=== PATIENT | female | born 1955 | race Caucasian/White ===

== ENCOUNTER 2021-07-07 09:36 | Outpatient (REF) | payer MEDICARE, SELFPAY ==
[2021-07-07 11:00] LABS: C Reactive Protein 0.11 mg/dL (< or = 0.50)
[2021-07-08 13:12] LABS: Lyme Abs Screen <0.90 index
== END 2021-07-07 09:37 | disposition home or self-care (01) ==
LOC: HO.10HDL 09:36
PROVIDERS: Visit Provider Internal Medicine
DX: T14.8XXA Other injury of unspecified body region, initial encounter (principal); W57.XXXA Bitten or stung by nonvenomous insect and other nonvenomous arthropods, initial encounter
CPT/HCPCS: 36415; 86140; 86617; 86618

== ENCOUNTER 2021-10-11 07:00 | Day surgery (SDC) | payer MEDICARE, SELFPAY ==
[2021-10-05 14:43] VITALS: BMI 33.4
[2021-10-06 11:05] VITALS: BMI 32.6
--- NOTE | 2021-10-10 08:28 | HO.ANESPROP2 ---
Documented by User: Ute Almeida NP 10/10/21 08:30 HPI - Anesthesia Eval Consult details Narrative: 66yo F for Colonoscopy Preop abx per GI d/t h/o total joint [facility] Past Medical History Medical History Environmental allergies HTN (hypertension) Motion sickness Surgical History Surgical History History of total knee arthroplasty Hx of arthroscopy of left knee Hx of colonoscopy Social History Social History Patient Tobacco Use Status: Never used Tobacco Use of substances other than those prescribed or required for medical reasons: No Are you DNR?: No Advance Directives: No Advance Directives Information Provided: Yes Advance Directives on File: No Meds Allergies Allergy/AdvReac Type Severity Reaction Status Date / Time No Known Allergies Allergy Verified 10/11/21 07:11 Home Medications Medication Instructions Recorded Confirmed Last Taken Type Fish Oil 10/05/21 Unknown History Vitamin C 10/05/21 Unknown History lisinopril 2.5 mg tablet 2.5 mg PO DAILY 10/05/21 10/05/21 Unknown History turmeric 10/05/21 Unknown History Exam Exam Date and Time: October 10, 2021 0828 Height,Weight and Vital Signs: Height 5 ft 8 in Weight 97.522 kg Assessment and Plan Assessment Anesthesia Assessment: Chart Reviewed Documented by User: Kourtney Askew MD 10/11/21 07:35 [facility] Past Medical History Medical History Environmental allergies HTN (hypertension) Motion sickness Family History Family history of problems with anesthesia: No Surgical History Surgical History History of total knee arthroplasty Hx of arthroscopy of left knee Hx of colonoscopy History of Problems with Anesthesia: No Social History Social History Patient Tobacco Use Status: Never used Tobacco Use of substances other than those prescribed or required for medical reasons: No Are you DNR?: No Advance Directives: No Advance Directives Information Provided: Yes Advance Directives on File: No Meds Allergies Allergy/AdvReac Type Severity Reaction Status Date / Time No Known Allergies Allergy Verified 10/11/21 07:11 Home Medications Medication Instructions Recorded Confirmed Last Taken Type Fish Oil 10/05/21 Unknown History Vitamin C 10/05/21 Unknown History lisinopril 2.5 mg tablet 2.5 mg PO DAILY 10/05/21 10/05/21 Unknown History turmeric 10/05/21 Unknown History Exam Height,Weight and Vital Signs: Height 5 ft 8 in Weight 97.522 kg Vital Signs Temp Pulse Resp BP Pulse Ox 10/11/21 07:15 98.0 F 86 18 157/75 H 97 Airway Mallampati Class: III TM Dist: >3cm Neck ROM: Full Loose/Missing/Broken Teeth: No Heart: RRR Lungs: CTAB Assessment and Plan Assessment Anesthesia Assessment: Anesthesia Plan Discussed Final Anesthetic Review Family History of Problems with Anesthesia: No History of Problems with Anesthesia: No NPO: Yes ASA Class: II Final Preanesthetic Review: No Changes in Pt Med Stat, Meds/Allgs Chart Reviewed, Consent Obtained/Reviewed and Anes Risks/Benef Reviewed Patient Risk: Low Procedure Risk: Low Anesthetic Plan Anesthetic Plan: MAC: Disposition: Standard PACU
[2021-10-11 07:15] VITALS: BP 157/75; PULSE 86; RESP 18; TEMP 36.7; O2SAT 97
[2021-10-11] MEDS: Ampicillin Sodium 2 GM in 0.9 % Sodium Chloride 100 ML IV (07:20)
[2021-10-11] MEDS: Lactated Ringers 1,000 ML 100 ML IVCONT (07:42)
[2021-10-11] MEDS: Gentamicin Sulfate/NaCl 80 MG/100 ML PIGGYBACK 100 MG IV (07:44)
[2021-10-11 09:01] VITALS: BP 103/66; PULSE 60; RESP 20; TEMP 36.9; O2SAT 98
--- NOTE | 2021-10-11 09:06 | PM.OP ---
Brief Operative Note Date of Service: 10/11/21 Pre-op diagnosis: Screening Post-op diagnosis: other (Colon polyps, Lipoma) Procedure: Colonoscopy to the cecum and TI with cold snare polypectomy x 2, and biopsies Surgeon: Jamie Jarvis Anesthesia: MAC Was an Job Setter Honing used for this Procedure?: No Estimated blood loss (mL): 2.0 Pathology: other (A. Ascending colon polyp B. Lipoma at Hepatic Flexure C. Rectal polyp) Condition: stable Disposition: PACU
[2021-10-11 09:16] VITALS: BP 117/68; PULSE 52; RESP 20; O2SAT 96
[2021-10-11 09:31] VITALS: BP 136/73; PULSE 52; RESP 20; O2SAT 98
--- NOTE | 2021-10-11 11:00 | OP_ITS ---
SURGEON: Jamie Jarvis MD INDICATIONS: The patient presents for evaluation of colorectal cancer screening. Full consent obtained from her for this, including risks of bleeding and perforation. PREOPERATIVE DIAGNOSIS: Colorectal cancer screening. POSTOPERATIVE DIAGNOSIS: Colorectal cancer screening, small colon polyps, lipoma, diverticulosis, internal hemorrhoids. PROCEDURE PERFORMED: Colonoscopy to the cecum and terminal ileum with cold snare polypectomy x2 and biopsies. ESTIMATED BLOOD LOSS: COMPLICATIONS: ANESTHESIA: Monitored anesthesia care. ASSISTANTS: SPECIMENS: DESCRIPTION OF PROCEDURE: The patient was placed in the left lateral decubitus position. The digital rectal exam revealed no abnormalities. The Olympus video pediatric colonoscope was entered into the rectum and advanced to the cecum with the assistance of abdominal wall pressure. Once in the cecum, I did identify normal-appearing cecal pouch with appendiceal orifice and a normal-appearing ileocecal valve. The terminal ileum was cannulated and appeared normal. The scope was withdrawn back in the colon. The entire cecum and ileocecal valve appeared normal. The scope was slowly withdrawn assessing all mucosal surfaces carefully. Preparation was excellent. In the ascending colon there was an approximately 5 or 6 mm polyp, which was removed with a cold snare polypectomy and recovered by suction. The polypectomy site appeared clean, without any signs of residual polyp nor any significant bleeding. In the region of the hepatic flexure, there was a large lipoma on broad stalk which I had been seen on her previous exam in 2009. It was quite soft and the overlying mucosa appeared to be grossly normal. Multiple biopsies were obtained from it. It was quite soft when probed with a biopsy forceps. In the rectum there was an approximately 5 or 6 mm polyp, which was removed by cold snare polypectomy and recovered by suction. The polypectomy site appeared clean, without any signs of residual polyp nor any significant bleeding. I did not visualize any other polyps, colitis, nor angiodysplasia. There was a mild amount of sigmoid diverticulosis. In the rectum, scope was retroflexed visualizing internal hemorrhoids, but no other pathology. The rectal mucosa appeared normal otherwise. The scope was withdrawn from the patient. She tolerated the procedure well and was returned to the recovery area in stable condition. IMPRESSION: 1. Colon polyps, status post cold snare polypectomy. 2. Lipoma. 3. Diverticulosis. 4. Internal hemorrhoids. PLAN: The results of the biopsies will be checked. If the polyps are tubular adenomas or serrated polyps, I would recommend a repeat colonoscopy within 5 years. If they are all just hyperplastic, I would recommend a followup colonoscopy in 10 years. She was advised not to use any aspirin and NSAIDs for 1 week. She did receive preprocedure antibiotics in regard to the relatively recent knee replacement and was given a prescription to use amoxicillin later today. MD CAROLINE Garcia/SEBAS / [id number]
== END 2021-10-11 10:30 | disposition home or self-care (01) ==
PROVIDERS: PCP Internal Medicine; Visit Provider Internal Medicine
PROC: 0DJD8ZZ Inspection of Lower Intestinal Tract, Via Natural or Artificial Opening Endoscopic (ICD-10-PCS; CPT 45378; principal; 2021-10-11 08:30)
DX: Z12.11 Encounter for screening for malignant neoplasm of colon (principal); D12.2 Benign neoplasm of ascending colon; K62.1 Rectal polyp; D17.5 Benign lipomatous neoplasm of intra-abdominal organs; K57.30 Diverticulosis of large intestine without perforation or abscess without bleeding; K64.8 Other hemorrhoids; I10 Essential (primary) hypertension; Z79.899 Other long term (current) drug therapy; Z96.652 Presence of left artificial knee joint
CPT/HCPCS: 45385; 45380; 88305; J0290; J1580; J2405

== ENCOUNTER 2023-02-14 10:15 | Outpatient (REF) | payer MEDICARE, SELFPAY ==
[2023-02-14 10:54] LABS: MANUAL DIFF FLAG NO
[2023-02-14 11:07] LABS: Basophils Percent Auto 0.6 % (0-2); Eosinophils Absolute Auto 0.2 X10*3/uL (0.0-0.4); Eosinophils Percent Auto 4.3 % (0-4); Hematocrit 40.4 % (37.0-47.0); Hemoglobin 13.1 g/dl (12.0-16.0); Imm Gran Abs Auto 0.01 X10*3/uL (0.00-0.03); Imm Gran Pct Auto 0.2 % (0.0-0.4); Lymphocytes Absolute Auto 1.9 X10*3/uL (1.2-4.9); Lymphocytes Percent Auto 34.9 % (20-40); Mean Corpuscular HGB Conc 32.4 g/dl (31.0-35.0); Mean Corpuscular Hemoglobin 29.9 pg (27.0-33.0); Mean Corpuscular Volume 92.2 fL (80.0-98.0); Mean Platelet Volume 11.4 fL (9.4-12.3); Monocytes Absolute Auto 0.4 X10*3/uL (0.1-1.2); Monocytes Percent Auto 7.8 % (2-11); Neutrophils Absolute Auto 2.8 x10*3/uL (2.0-8.3); Neutrophils Percent Auto 52.2 % (45-73); Platelet Count 205 X10*3/uL (160-400); Red Blood Count 4.38 X10*6/uL (4.20-5.50); Red Cell Distribution Width 13.1 % (11.0-16.0); White Blood Count 5.4 X10*3/uL (4.8-10.8)
[2023-02-14 11:55] LABS: Alanine Aminotransferase 33 U/L (0-31); Albumin Level 3.8 g/dL (3.5-5.0); Alkaline Phosphatase 92 U/L (39-117); Anion Gap 11 (12-20); Aspartate Amino Transferase 18 U/L (5-31); Bilirubin Total 0.8 mg/dL (0.0-1.0); Blood Urea Nitrogen 17 mg/dL (9-16); Calcium 9.1 mg/dL (8.4-10.2); Carbon Dioxide 26 mmol/L (22-29); Chloride 108 mmol/L (96-108); Cholesterol 163 mg/dL; Estimated Glomerular Filt Rate > 60; Glucose Fasting 87 mg/dL (60-99); HDL Cholesterol 62 mg/dL; LDL Cholesterol Calculated 88 mg/dl; Sodium 141 mmol/L (135-145); Total Protein 6.4 g/dL (6.5-8.0); Triglycerides 65 mg/dL
== END 2023-02-14 10:16 | disposition home or self-care (01) ==
LOC: HO.10HDL 10:15
PROVIDERS: Visit Provider Internal Medicine
DX: Z00.00 Encounter for general adult medical examination without abnormal findings (principal)
CPT/HCPCS: 36415; 80053; 80061; 85025

== ENCOUNTER 2024-01-16 10:30 | Outpatient (REF) | payer MEDICARE, SELFPAY ==
[2024-01-16 12:10] LABS: MANUAL DIFF FLAG NO
[2024-01-16 12:11] LABS: Basophils Percent Auto 0.4 % (0-2); Eosinophils Absolute Auto 0.2 X10*3/uL (0.0-0.4); Eosinophils Percent Auto 3.9 % (0-4); Hematocrit 42.2 % (37.0-47.0); Hemoglobin 14.2 g/dl (12.0-16.0); Imm Gran Abs Auto 0.01 X10*3/uL (0.00-0.03); Imm Gran Pct Auto 0.2 % (0.0-0.4); Lymphocytes Absolute Auto 1.4 X10*3/uL (1.2-4.9); Lymphocytes Percent Auto 29.3 % (20-40); Mean Corpuscular HGB Conc 33.6 g/dl (31.0-35.0); Mean Corpuscular Hemoglobin 30.8 pg (27.0-33.0); Mean Corpuscular Volume 91.5 fL (80.0-98.0); Mean Platelet Volume 11.4 fL (9.4-12.3); Monocytes Absolute Auto 0.4 X10*3/uL (0.1-1.2); Monocytes Percent Auto 7.5 % (2-11); Neutrophils Absolute Auto 2.9 x10*3/uL (2.0-8.3); Neutrophils Percent Auto 58.7 % (45-73); Platelet Count 206 X10*3/uL (160-400); Red Blood Count 4.61 X10*6/uL (4.20-5.50); Red Cell Distribution Width 13.3 % (11.0-16.0); White Blood Count 4.9 X10*3/uL (4.8-10.8)
[2024-01-16 12:39] LABS: Alanine Aminotransferase 21 U/L (0-31); Alkaline Phosphatase 73 U/L (39-117); Anion Gap 14 (12-20); Aspartate Amino Transferase 19 U/L (5-31); Bilirubin Total 0.5 mg/dL (0.0-1.0); Blood Urea Nitrogen 13 mg/dL (9-16); Calcium 9.9 mg/dL (8.4-10.2); Carbon Dioxide 26 mmol/L (22-29); Chloride 105 mmol/L (96-108); Cholesterol 161 mg/dL (<200); Estimated Glomerular Filt Rate > 60; Glucose Random 95 mg/dL (60-115); Potassium 3.8 mmol/L (3.3-5.1); Sodium 141 mmol/L (135-145); Total Protein 7.1 g/dL (6.5-8.0)
[2024-01-16 12:45] LABS: Vitamin D 25-OH Total 36.8 ng/mL (>30)
== END 2024-01-16 10:31 | disposition home or self-care (01) ==
LOC: HO.10HDL 10:30
PROVIDERS: Visit Provider Internal Medicine
DX: I10 Essential (primary) hypertension (principal); L40.9 Psoriasis, unspecified
CPT/HCPCS: 36415; 80053; 82306; 82465; 85025

== ENCOUNTER 2025-04-16 08:58 | Outpatient (AMB) | payer MEDICARE, SELFPAY ==
--- NOTE | 2025-04-16 08:59 | A.OFFPC_ITS ---
Vital Signs 04/16/25 09:02 04/16/25 09:05 Height 5 ft 8 in Weight 211 lb BMI 32.1 BP 148/78 H Blood Pressure Location Lt brachial Position Sitting Respiration 16 Pulse 65 Pulse Source Pulse Oximeter Temp 98.6 F Temp Source Temporal Artery Scan Pulse Oximetry (%) 97 Oxygen Delivery Method Room Air Intake Visit Reasons: physical Waiter/Waitress Second Class Required: No Accompanied by: Self / Same As Patient Allergies No Known Allergies Allergy (Verified 04/16/25 08:59) Tobacco use date assessed: 04/16/25 HPI HPI Comments History of Present Illness Details The patient is a 70 year old female with a past medical history of hypertension, knee OA presenting for annual exam. She is scheduled for Jun 15 for right knee replacement. She has no significant cardiopulmonary issues No kidney issues. No diabetes She has tolerated anesthesia in the past She has a history of motion sickness She can multiple blocks without shortness of breath HTN-On lisinopril 2.5mg daily. 148/78. Denies chest pain, exertional dyspnea Psoriasis-follows with dermatology. Saw Dr Hurley. MSK: s/p left knee replacement in 2019 09/2021-[address] Jarvis. Mammo 09/2024-[facility] ROS CONSTITUTIONAL: Denies weight loss, fever and chills. HEENT: Denies changes in vision and hearing. RESPIRATORY: Denies SOB and cough. CV: Denies palpitations and CP GI: Denies abdominal pain, nausea, vomiting and diarrhea. : Denies dysuria and urinary frequency. MSK: Denies new myalgia and joint pain. SKIN: Denies rash and pruritus. NEUROLOGICAL: Denies headache PSYCHIATRIC: Denies recent changes in mood. PHYSICAL EXAM: GENERAL: Alert and oriented x 3. NAD EYES: EOMI. Anicteric. HENT: Moist mucous membranes. No scleral icterus. No cervical lymphadenopathy. LUNGS: Clear to auscultation bilaterally. CARDIOVASCULAR: Regular rate and rhythm. No murmur. No JVD. ABDOMEN: Soft, non-tender +bs EXTREMITIES: No edema. Non-tender. SKIN: No rashes or lesions. Warm. NEUROLOGIC: No focal neurological deficits. CN II-XII grossly intact PSYCHIATRIC: Cooperative. Appropriate mood and affect [facility] Medical History (Updated 04/16/25 @ 09:55 by Shanell Díaz MD) Motion sickness Environmental allergies HTN (hypertension) Surgical History Hx of arthroscopy of left knee History of total knee arthroplasty Hx of colonoscopy (~10/11/21) Social History Patient Tobacco Use Status: Former Tobacco user e-Cigarette/Vaping Use: Never Used Questionnaire AUDIT C Alcohol Use Questionnaire (AUDIT-C) 1. How often do you have a drink containing alcohol?: Monthly or less 2. How many drinks containing alcohol do you have on a typical day when you are drinking?: 1 or 2 Total Score: 1 Physical exam (Primary Care) Vital Signs: Last Vital Signs Temp 98.6 F 04/16/25 09:05 Pulse 65 04/16/25 09:05 Resp 16 04/16/25 09:05 BP 148/78 H 04/16/25 09:05 Pulse Ox 97 04/16/25 09:05 Oxygen Delivery Method Room Air 04/16/25 09:05 BMI result Body Mass Index 32.1 Tobacco/Smoking Status: Tobacco use Status Tobacco use date assessed 04/16/25 04/16/25 09:01 Patient Tobacco Use Status Former Tobacco user 04/16/25 09:07 e-Cigarette/Vaping Use Never Used 04/16/25 09:01 Coding Level of Care Code Est Pt Prev Care >65y(74115) Diagnoses Physical exam Z00.00 Primary osteoarthritis of both knees M17.0 Laterality: bilateral Osteoarthritis type: primary Assessment & Plan Assessment & Plan (1) Physical exam: Code(s): Z00.00 - Encounter for general adult medical examination without abnormal findings (2) OA (osteoarthritis) of knee: Code(s): M17.9 - Osteoarthritis of knee, unspecified Category: Medical Qualifiers: Laterality: bilateral Osteoarthritis type: primary Qualified Code(s): M17.0 - Bilateral primary osteoarthritis of knee Plan CPE Interval history reviewed Labs utd. Blood pressure slightly suboptimal today. Endorses anxiety Preop eval No significant cardiopulmonary disease EKG reviewed METS>/=4 Ok to proceed with planned surgery without further cardiac testing. Labs will be reviewed once received
[2025-04-16 09:02] VITALS: BMI 32.1
[2025-04-16 09:05] VITALS: BP 148/78; PULSE 65; RESP 16; TEMP 37; O2SAT 97
--- OUTSIDE RECORDS SUMMARY | 2025-04-16 09:13 | XMS_ITS | Encounter Summary ---
Author Organization [facility] Address [address] [place] [address] Phone Care Team Providers Care Supervisor Tubing Name Role Phone Pedro Hernandez MD Unavailable [phone] Berna Carroll MD Unavailable [phone] Pedro Hernandez MD Primary Care Provider Shanell Maddox MD Primary Care Provider [phone] Encounter Details Date Type Department Care Team (Late st Contact Info) Description 01/31/2018 Ancillary Orders Virtual Department [address] [place] [address] Pedro Hernandez MD [address] [place] [address] [place] [address] Breast screening Social History Tobacco Use Types Packs/Day Years Used Date Smoking Tobacco: Never Assessed Comments Unknown Sex and Gender Information Value Date Recorded Sex Assigned at Not on file Legal Sex Female 9:57 PM EDT Gender Identity Not on file Sexual Orientation Not on file documented as of this encounter Plan of Treatment Upcoming Encounters Date Type Department Care Team (Latest Contact Info) Description 04/30/2025 11:00 AM EDT Appointment [facility] EKG [address] [place] [address] Teja Daley MD [address] [place] [address] Orthopedics & Sports Medicine, [facility] [place] [address] [email or web address] 05/03/2025 12:30 PM EDT Office Visit [facility] [address] [facility] [address] [place] [address] Héctor Lobato MD [address] [place] [address] [email or web address] 05/20/2025 10:00 AM EDT Office Visit [facility] Orthopedics & Sports Medicine [address] [place] [address] Siomara Vidal PA-C [address] [place] [address] [facility], [place] [address] [email or web address] 06/15/2025 Procedure Pass OR Admitting Dept - Virtual Department [address] [place] [address] 06/15/2025 10:24 AM EDT Hospital Encounter OR Admitting Dept - Virtual Department [address] [place] [address] Teja Daley MD [address] [place] [address] [facility], [place] [address] [email or web address] 06/15/2025 10:24 AM EDT - 06/15/2025 1:17 PM EDT Surgery OR Admitting Dept - Virtual Department [address] [place] [address] Teja Daley MD [address] [place] [address] [facility], [place] [address] [email or web address] ARTHROPLASTY TOTAL KNEE 06/29/2025 10:00 AM EDT Office Visit [facility] Medicine [address] [place] [address] Siomara Vidal PA-C [address] [place] [address] [facility] [place] [address] [email or web address] 07/29/2025 10:00 AM EST Office Visit [facility] Medicine [address] [place] [address] Teja Daley MD [address] [place] [address] Orthopedics & Sports Medicine, [place] [address] [email or web address] Scheduled Procedures Name Priority Associated Diagnoses Date/Ti me ARTHROPLASTY TOTAL KNEE Primary localized osteoarthritis of right knee 06/15/2025 10:24 AM EDT documented as of this encounter Results * BI MAMMOGRAM SCREENING WITH TOMOSYNTHESIS WITH CAD (BILATERAL) (03/14/2018 8:16 AM EDT) Anatomical Region Laterality Modality Breast Left, Breast Right, Breast Bilateral Bila teral Mammography 03/14/2018 8:07 AM EDT Impressions 03/14/2018 9:07 AM EDT No mammographic evidence of malignancy. Recommend routine annual surveillance. BI-RADS CATEGORY: 2 - Benign finding. DENSITY: There are scattered fibroglandular densities. POS - [id number] Narrative 03/14/2018 9:07 AM EDT 63-year-old female with no current breast symptoms. Comparison made to previous on 03/13/2017 and as far back as 02/12/2012. Interpretation made in conjunction with computer-aided detection and tomosynthesis. There are scattered areas of fibroglandular density. Stable scattered bilateral microcalcifications left greater than right. There are no suspicious masses, areas of architectural distortion, or suspicious clusters of microcalcifications. Procedure Note Quita Lock MD - 03/14/2018 63-year-old female with no current breast symptoms. Comparison made toprevious on 03/13/2017 and as far back as 02/12/2012. Interpretation madein conjunction with computer-aided detection and tomosynthesis. There are scattered areas of fibroglandular density. Stable scatteredbilateral microcalcifications left greater than right. There are no suspicious masses, areas of architectural distortion, orsuspicious clusters of microcalcifications. IMPRESSION: No mammographic evidence of malignancy. Recommend routine annualsurveillance. BI-RADS CATEGORY: 2 - Benign finding. DENSITY: There are scattered fibroglandular densities. POS - [id number] Pedro Hernandez MD IMG MG EXAMS Final R esult documented in this encounter Visit Diagnoses Diagnosis Breast screening Breast screening, unspecified Breast screening Breast screening, unspecified Primary localized osteoarthritis of right knee documented in this encounter Care Teams Supervisor Tubing Relationship Specialty Start Date End Date Pedro Hernandez MD [address] [place] [address] [place] [address] PCP - General Internal Medicine 01/31/18 01/19/25 Shanell Maddox MD [address] [place] [address] [place] [address] PCP - General Internal Medicine 01/20/25 Pedro Hernandez MD [address] [place] [address] [place] [address] Historical LMR Provider 07/06/17 2 Berna Carroll MD [address] [place] [address] Historical LMR Provider 07/06/17 2 documented as of this encounter Additional Source Comments The information contained in this document represents components of the legal health record. It is not the complete legal health record.[facility]
--- OUTSIDE RECORDS SUMMARY | 2025-04-16 09:13 | XMS_ITS ---
Author Name Rickey Hurley Address Unknown Organization [facility] Care Team Providers Care Viscosity Inspector Name Role Phone Unavailable Primary Care Physician Unavailab le History Of Present Illness This is a 70 year old female who is following up for psoriasis on the right pretibial region, left pretibial region, right ankle, and left calf. She was seen on March 08, 2025, at which time the following treatment recommendations were given: Plan: Recommended betamethasone augmented 0.05% ointment 45 g, Sig: Apply BID to affected areas on legs.She was prescribed Betamethasone, augmented 0.05 % topical ointment (Apply legs bid prn up to two weeks at a time).Since then, the patient states the psoriasis is better.The patient presents for further evaluation and management.The patient followed thetreatment plan as directed.Interval History: Pt states psoriasis is better with Betamethasone cream, applied BID x 2 weeks, now down to applying QD every couple of days. Medications Medication Generic Name RxNorm Strength Strength Unit Route Dose Dose Form Frequency Date Started Date Ended Status Indication Sig betamethaso ne dipropionat e betameth asone dipropio marta 026257 0.05 % Topica l cream 10/21/19 20 suspend ed Appl y to affe cted area s BID, avoi d face and groi n betamethaso ne dipropionat e betameth asone dipropio marta 124793 0.05 % Topica l cream 12/26/19 22 suspend ed Appl y to affe cted area s of psor iasi s BID. betamethaso ne dipropionat e betameth asone dipropio marta 712214 0.05 % Topica l ointm ent 01/06/20 24 suspend ed Appl y to affe cted area s twic e esa y unti l karley r. betamethaso ne, augmented betameth asone, augmente d 026789 0.05 % Topica l thin layer ointm ent bid 03/08/20 25 active Appl y legs bid prn up to two week s at a [place] 357228 0.05 % Topica l ointm ent 01/02/20 24 suspend ed Appl y to affe cted area s BID unti l karley r lisinopril 578379 2.5 mg Oral 1 table t qd active Amoxicillin NULL 01/25/20 16 active Fluticasone Propionate NULL 01/24 16 suspend ed Fluvirin NULL 08/18/20 14 suspend ed Hydrocodone -Acetaminop hen NULL 08/21/20 17 suspend ed Lisinopril NULL 06/16/20 14 suspend ed MethylPREDN ISolone NULL 01/25/20 16 suspend ed Nabumetone NULL 06/16/20 14 suspend ed TACLONEX 0.005%-0.06 4% SUSPENS NULL 06/16 14 suspend ed Zostavax NULL 08/18/20 14 suspend ed Problems Problem Code Type Status Date of Diagnosis Date of Resolution Psoriasis vulgaris (disorder) 639452012(S NOMED) Diagnosis active 04/15/2025 Psoriasis vulgaris (disorder) (S NOMED) Diagnosis active 03/08/2025 Psoriasis vulgaris (disorder) (S NOMED) Diagnosis active 01/02/2024 Disorder of pigmentation (disorder) 813942093(S NOMED) Diagnosis active 01/02/2024 Melanocytic nevus of left upper limb (disorder) 21854239843 9103(SNOMED ) Diagnosis active 01/02/2024 Melanocytic nevus of right upper limb (disorder) 115745522(S NOMED) Diagnosis active 01/02/2024 Melanocytic nevus of trunk (disorder) 225672018(S NOMED) Diagnosis active 01/02/2024 Psoriasis vulgaris (disorder) 063107475(S NOMED) Diagnosis active 12/25/2021 Disorder of pigmentation (disorder) 960616679(S NOMED) Diagnosis active 12/25/2021 Melanocytic nevus of left upper limb (disorder) 71853205626 9103(SNOMED ) Diagnosis active 12/25/2021 Melanocytic nevus of right upper limb (disorder) 389435776(S NOMED) Diagnosis active 12/25/2021 Melanocytic nevus of trunk (disorder) 984789475(S NOMED) Diagnosis active 12/25/2021 Neoplasm of uncertain behavior of skin D48.5(ICD-1 0) Diagnosis active 10/21/2019 Psoriasis vulgaris L40.0(ICD-1 0) Diagnosis active 10/21/2019 Other melanin hyperpigmentation L81.4(ICD-1 0) Diagnosis active 10/21/2019 Contusion of left index finger without damage to nail, initial encounter S60.022A(IC D-10) Diagnosis active 10/21/2019 Other seborrheic keratosis L82.1(ICD-1 0) Diagnosis active 10/21/2019 Hemangioma of skin and subcutaneous tissue D18.01(ICD- 10) Diagnosis active 10/21/2019 Psoriasis vulgaris (disorder) 101750805(S NOMED) Diagnosis active 08/21/2017 Psoriasis vulgaris (disorder) 519164026(S NOMED) Diagnosis active 05/22/2017 Other specified health status Z78.9(ICD-1 0) Diagnosis active 04/22/2017 Psoriasis vulgaris (disorder) 681775700(S NOMED) Diagnosis active 04/22/2017 Psoriasis vulgaris (disorder) 150620852(S NOMED) Diagnosis active 02/12/2017 Psoriasis vulgaris (disorder) 904018534(S NOMED) Diagnosis active 07/25/2016 Psoriasis vulgaris (disorder) 255465795(S NOMED) Diagnosis active 01/25/2016 Psoriasis (disorder) 5454943(SNO MED) Diagnosis active 12/08/2014 Psoriasis (disorder) 5499428(SNO MED) Diagnosis active 08/18/2014 Psoriasis (disorder) 5174909(SNO MED) Diagnosis active 06/16/2014 Psoriasis (disorder) 2974093(SNO MED) Problem active Increased blood pressure (finding) 56283850(SN OMED) Problem active Results No data Encounters Service provided at [facility], [address] [place] [address], [address], [place], [place] [id number]. Office phonenumber is [phone]. Office fax number is [phone]. Encounter Diagnosis Location Date / Time Type Psoriasis (L40.0) [facility] 04/15/2025 19:10:00 [facility] [id number] Reason For Referral No data Procedures Procedure Date Documentation of current medications (pr ocedure) 04/15/2025 12:00 am [facility] Documentation of past medical history (p rocedure) Documentation of past medical history (p rocedure) Total replacement of left knee joint (pr ocedure) Total replacement of left knee joint (pr ocedure) Documentation of past medical history (p rocedure) Review Of Systems Provider reviewed on Apr 15, 2025.A focused review of systems was performed including Allergic / Immunologic, Integumentary, and Musculoskeletal and was notable for hay fever and joint aches.No Problems With Healing And No Problems With Scarring (hypertrophic Or Keloid). Assessment 1.Psoriasis, Status: ImprovedCounselingAdditional NotesPrescription Medication Management: ContinueRegimen - betamethasone augmented 0.05% ointment 45 g, Sig: Apply BID to affected areas on legs.. Plan of Care Future visit PRN - Follow up PRN Code Detail Instructions [id number] betamethasone, augme nted 0.05 % topical ointment Apply legs bid prn up to two weeks at a time 958000 betamethasone diprop ionate 0.05 % topical ointment Apply to affected areas twice daily until clear. 063613 clobetasol 0.05 % topical ointme nt Apply to affected areas BID until clear 404851 betamethasone diprop ionate 0.05 % topical cream Apply to affected areas of psoriasis BID. 394211 betamethasone diprop ionate 0.05 % topical cream Apply to affected areas BID, avoid face and groin Instructions * I counseled the patient regarding the following:Skin care: Emollients, ambient sun exposure, shampoos with tar, selenium or zinc pyrithione can improve psoriasis.Expectations: Psoriasis is chronic innature with periods of remissions and flares. Flares can be triggered by stress, infections (group A strep), certain medications and alcohol.Contact office if: Psoriasis worsens, or fails to improve despite several months of treatment.Some patients with psoriasis also have arthritis. Social History Code Activity Start Date End Date [id number] (SNOMED) Never smoker Sex female Sexual orientation Unspecified Gender identity Unspecified Vital Signs No data
--- OUTSIDE RECORDS SUMMARY | 2025-04-16 09:13 | XMS_ITS | Patient Health Record ---
Author Organization [facility] Address [address] [place] [address] Care Team Providers Care Reaming Machine Operator Name Role Phone David (RETIRED) Pedro MIX Primary Care Provide r Unavailable Jamie Jarvis Unavailable [phone] Allergies No Known Allergies Reason For Referral No Information Medications Medication SIG (Take, Route, Fr equency, Duration) Notes Start Date End Date Status Lisinopril 2.5 MG Oral for 90 Active Fish Oil 500 MG 1 capsule Orally Twi ce a day for 30 day(s) Active Turmeric Active Vitamin C Active Immunizations Vaccine Route Administration Date Status Comme nts Influenza Unknown 05/17/2021 Administered Social History Tobacco Use: Social History Observation Description Date Details (start date - stop date) Never Smoker NA - NA Tobacco Use/Smoking Question Answer Notes Patient is a nonsmoker Alcohol Screen Question Answer Notes Did you have a drink contain ing alcohol in the past year? Yes How often did you have a dri nk containing alcohol in the past year? 2 to 3 times a week (3 points) How many drinks did you have on a typical day when you were drinking in the past year? 3 or 4 drinks (1 point) How often did you have 6 or more drinks on one occasion in the past year? Never (0 point) Points 4 Interpretation Positive Section Notes: Nonsmoker; occasional alcoho l Problems Problem Type SNOMED Code ICD Code Onset Dates Problem Status W/U Status Risk Notes Problem 447076711 Encounter for screening for malignant neoplasm of colon (Z12.11) Active confirmed Problem [id number] Preprocedural examination (Z01.818) Active confirmed Problem Colon, diverticulosis (K57.30) Active confirmed Plan Of Treatment Future Test Test Name Order Date COLONOSCOPY 09/06/2021 Insurance Providers Payer Name Payer Address Payer Phone Subscriber Number Group Number Insured Name Patient Relationship to Insured Coverage Start Date Coverage End Date MEDICARE OF [place] [address] NEIL RASHEED [id number] ANNA LORENZO Self - patient is the insured MEDEX ATTN CLAIMS [address] [place] [address] [id number] ANNA LORENZO Self - patient is the insured Medical (General) History Medical History History ICD Code Denies NC,DM,CVA,Lung disease,renal dise ase Hypertension Enviromental allergies Neg screening colonoscopy in 2009 except for a lipoma in the area of the hepatic flexure Surgical History Surgery Date(Month/Year) Knee replacement on the left 2019
--- OUTSIDE RECORDS SUMMARY | 2025-04-16 09:13 | XMS_ITS | Clinical Summary ---
Author Organization [address] [place] [address] Address [address] [place] [address] Phone Care Team Providers Care Air Tester Name Role Phone Pedro Hernandez MD Primary Care Provider [phone] Allergies No known active allergies Active Problems Problem Noted Date Diagnosed Date Primary osteoarthritis of both knees 08/07/2024 Other obesity due to excess calories 08/07/2024 Unilateral primary osteoarthritis, right knee Overweight 08/07/2024 Body mass index (BMI) 32.0-32.9, adult 4 Rash and other nonspecific skin eruption 024 Psoriasis, unspecified 08/07/2024 Acute pharyngitis, unspecified 08/07/2024 Non-seasonal allergic rhinitis due to pollen Allergic rhinitis due to animal dander 4 Arthropathic psoriasis ([facility] V24, [facility] V28 ) 08/07/2024 Essential hypertension 08/07/2024 Immunizations Name Administration Dates Next Due Moderna SARS-CoV-2 COVID-19, mRNA, LNP-S, preservative free 08/22/2022 Social History Tobacco Use Types Packs/Day Years Used Date Smoking Tobacco: Never Assessed Comments Unknown Sex and Gender Information Value Date Recorded Sex Assigned at Not on file Legal Sex Female 11:39 AM EDT Gender Identity Not on file Sexual Orientation Not on file Last Filed Vital Signs Vital Sign Reading Time Taken Comments Blood Pressure - - Pulse - - Temperature - - Respiratory Rate - - Oxygen Saturation - - Inhaled Oxygen Concentration - - Weight 98.9 kg (218 lb) 08/11/2024 3:20 PM EST Height 170.2 cm (5' 7 ) 08/11/2024 3:20 PM EST Body Mass Index 34.14 08/11/2024 3:20 PM EST Plan of Treatment Health Maintenance Due Date Last Done Comments DTaP,Tdap,and Td Vaccines (1 - Tdap) 1973 Zoster Vaccines (3 of 3) 08/18/2018 06/23/2018, 06/16 Breast Cancer Screening 03/14/2020 03/14/2018 Cholesterol Screening (Lipid Panel) 06/28/2024 Colorectal Cancer Screening: Colonoscopy 06/28/2024 Falls Risk Assessment 06/28/2024 Hepatitis C Screening 06/28/2024 Medicare Annual Wellness Visit 06/28/2024 Osteoporosis Screening (Bone Density Screening) 06/28/2024 Social Influencers of Health Screening 06/28/2024 Hypertension/CHF/CAD Annual BMP Blood Test 08/07/2024 Depression Screening 09/16/2024 COVID-19 Vaccine ( season) 2024 07/01/2024, 06/12/2023, 08/22/2022, Additional history exists Influenza Vaccine (#1) 2025 , 06/12/2023, 07/10/2022, Additional history exists RSV Immunization Adult Patients (1 - 1-dose 75+ series) 2029 Pneumococcal Vaccine: 50+ Years Completed 06/11/2022, 06/07/2021 HIB Vaccines Aged Out No longer eligi ble based on patient's age to complete this topic HPV Vaccines Aged Out No longer eligi ble based on patient's age to complete this topic Hepatitis A Vaccines Aged Out No long er eligible based on patient's age to complete this topic Hepatitis B Vaccines Aged Out No long er eligible based on patient's age to complete this topic IPV Vaccines Aged Out No longer eligi ble based on patient's age to complete this topic MMR Vaccines Aged Out No longer eligi ble based on patient's age to complete this topic Meningococcal ACWY Vaccine Aged Out N o longer eligible based on patient's age to complete this topic Meningococcal B Vaccine Aged Out No l onger eligible based on patient's age to complete this topic RSV Immunization Patients Under 20 months Aged Out No longer eligible based on patient's age to complete this topic Varicella Vaccines Aged Out No longer eligible based on patient's age to complete this topic Insurance MEDICARE [facility] Care Teams Air Tester Relationship Specialty Start Date End Date Pedro Hernandez MD [address] [place] [address] Dr [place] PCP - General 06/10/24
== END 2025-04-16 09:50 | disposition home or self-care (01) ==
LOC: HO.HMCHD 08:58
PROVIDERS: PCP Internal Medicine; Visit Provider Internal Medicine
DX: M17.0 Bilateral primary osteoarthritis of knee (principal); Z01.818 Encounter for other preprocedural examination

== ENCOUNTER → 2025-04-16 08:58 | Outpatient (BNVA) | payer MEDICARE, SELFPAY | PROVIDERS: PCP Internal Medicine; Visit Provider Internal Medicine | DX: Z00.00 Encounter for general adult medical examination without abnormal findings (principal); M17.0 Bilateral primary osteoarthritis of knee; I10 Essential (primary) hypertension; L40.9 Psoriasis, unspecified; Z79.899 Other long term (current) drug therapy | CPT/HCPCS: 99202 ==

== ENCOUNTER 2025-05-10 12:59 | Outpatient (AMB) | payer MEDICARE, SELFPAY ==
--- OUTSIDE RECORDS SUMMARY | 2025-05-10 14:11 | XMS_ITS | Encounter Summary ---
Author Organization [facility] Address [address] [place] [address] Phone Care Team Providers Care Methods Time Analyst Name Role Phone Pedro Hernandez MD Unavailable [phone] Berna Carroll MD Unavailable [phone] Pedro Hernandez MD Primary Care Provider Shanell Maddox MD Primary Care Provider [phone] Reason for Referral * Physical Therapy (Routine) - Closed Specialty Diagnoses / Procedures Referred By Contissac t Referred To Contact Physical Therapy Diagnoses L TKA System, Provider Not In, PhD [id number] [place] [address] Phone: tel: Referral ID Status Reason Start Date Expiration Date Visits Re quested Visits Authorized [id number] Closed 12/01/2018 07/16/2019 25 25 Encounter Details Date Type Department Care Team (Latest Contact Info) Description 12/01/2018 Transcribe Orders [facility] [address] [place] [address] Teja Daley MD [address] [place] [address] [facility] [place] [address] [email or web address] Encounter for rehabilitation (Primary Dx) Social History Tobacco Use Types Packs/Day Years Used Date Smoking Tobacco: Never Assessed Comments No Sex and Gender Information Value Date Recorded Sex Assigned at Not on file Legal Sex Female 9:57 PM EDT Gender Identity Not on file Sexual Orientation Not on file documented as of this encounter Plan of Treatment Upcoming Encounters Date Type Department Care Team (Latest Contact Info) Description 05/20/2025 10:00 AM EDT Office Visit [facility] [address] [place] [address] Siomara Vidal PA-C [address] [place] [address] Orthopedics Sports [facility], [place] [address] [email or web address] 06/15/2025 Procedure Pass OR Admitting Dept - Virtual Department [address] [place] [address] 06/15/2025 10:24 AM EDT Hospital Encounter OR Admitting Dept - Virtual Department [address] [place] [address] Teja Daley MD [address] [place], [place] [address]s Sports [facility], [place] [address] [email or web address] 06/15/2025 10:24 AM EDT - 06/15/2025 1:17 PM EDT Surgery OR Admitting Dept - Virtual Department [address] [place] [address] Teja Daley MD [address] [place] [address] Orthopedics Sports [facility], [place] [address] [email or web address] ARTHROPLASTY TOTAL KNEE 06/29/2025 10:00 AM EDT Office Visit [facility] [address] [place] [address] Siomara Vidal PA-C [address] [place] [address] Orthopedics Sports [facility], [place] [address] [email or web address] 07/29/2025 10:00 AM EST Office Visit [facility]oped[facility] Sports Medicine [address] [place] [address] Teja Daley MD [address] [place] [address] Orthopedics & Sports Medicine, [facility] [place] [address] [email or web address] Scheduled Procedures Name Priority Associated Diagnoses Date/Ti me ARTHROPLASTY TOTAL KNEE Primary localized osteoarthritis of right knee 06/15/2025 10:24 AM EDT Scheduled Referrals Name Type Priority Associated Diagnoses Orde r Schedule Ambulatory referral to [facility] Physical Therapy Outpatient Referral Routine Encounter for rehabilitation Ordered: 12/01/2018 documented as of this encounter Visit Diagnoses Diagnosis Encounter for rehabilitation- Primary Primary localized osteoarthritis of right knee- Primary Pre-op exam Primary localized osteoarthritis of right knee documented in this encounter Care Teams Methods Time Analyst Relationship Specialty Start Date End Date Pedro Hernandez MD [address] [place] [address] [place] [address] PCP - General Internal Medicine 01/31/18 01/19/25 Shanell Maddox MD [address] [place] [address] [place] [address] PCP - General Internal Medicine 01/20/25 Pedro Hernandez MD [address] [place] [address] [place] [address] Historical LMR Provider 07/06/172 2 Berna Carroll MD [address] [place] [address] Historical LMR Provider 07/06/172 2 documented as of this encounter Additional Source Comments The information contained in this document represents components of the legal health record. It is not the complete legal health record.[facility]
--- OUTSIDE RECORDS SUMMARY | 2025-05-10 14:11 | XMS_ITS | Encounter Summary ---
Author Organization [facility] Address [address] [place] [address] Phone Care Team Providers Care Supervisor Fish Processing Name Role Phone Pedro Hernandez MD Unavailable Berna Carroll MD Unavailable [phone] Pedro Hernandez MD Primary Care Provider Shanell Maddox MD Primary Care Provider [phone] Encounter Details Date Type Department Care Team (Late st Contact Info) Description 01/31/2018 Ancillary Orders Virtual Department [address] [place] [address] Pedro Hernandez MD [address] [place] [address] [place] [address] Breast screening Social History Tobacco Use Types [...] Description 05/20/2025 10:00 AM EDT Office Visit [facility] Sports Medicine [address] [place] [address] Siomara Vidal PA-C [address] [place] [address] [facility] [place] [address] [email or web address] 06/15/2025 Procedure Pass OR Admitting Dept - Virtual Department [address] [place] [address] 06/15/2025 10:24 AM EDT Hospital Encounter OR Admitting Dept - Virtual Department [address] [place] [address] Teja Daley MD [address] [place] [address] Orthopedics Sports [facility], [place] [address] [email or web address] 06/15/2025 10:24 AM EDT - 06/15/2025 1:17 PM EDT Surgery OR Admitting Dept - Virtual Department [address] [place] [address] Teja Daley MD [address] [place], [place] [address]s Sports [facility], [place] [address] [email or web address] ARTHROPLASTY TOTAL KNEE 06/29/2025 10:00 AM EDT Office Visit [facility] Orthopedics & Sports Medicine [address] [place] [address] Siomara Vidal PA-C [address] [place] [address] Orthopedics Sports [facility], [place] [address] [email or web address] 07/29/2025 10:00 AM EST Office Visit [facility] Medicine [address] [place] [address] Teja Daley MD [address] [place], [place] [address]s Sports [facility], [place] [address] [email or web address] Scheduled Procedures Name Priority Associated Diagnoses Date/Ti [...] There are scattered fibroglandular densities. POS - [id number] Narrative 03/14/2018 9:07 AM EDT 63-year-old female [...] There are scattered fibroglandular densities. POS - [id number] Pedro Hernandez MD IMG MG EXAMS Final R esult documented in this encounter Visit Diagnoses Diagnosis Breast screening Breast screening, unspecified Breast screening Breast screening, unspecified Primary localized osteoarthritis of right knee- Primary Pre-op exam Primary localized osteoarthritis of right knee documented in this encounter Care Teams Supervisor Fish Processing Relationship Specialty Start Date End Date Pedro Hernandez MD [address] [place] [address] [place] [address] PCP - General Internal Medicine 01/31/18 01/19/25 Shanell Maddox MD [address] [place] [address] [place] [address] PCP - General Internal Medicine 01/20/25 Pedro Hernandez MD [address] [place] [address] [place] [address] Historical LMR Provider 07/06/172 2 Berna Carroll MD [address] [place] [address] Historical LMR Provider 07/06/1709/23/2 2 documented as of this encounter Additional Source Comments The information contained in this document represents components of the legal health record. It is not the complete legal health record.[facility]
--- OUTSIDE RECORDS SUMMARY | 2025-05-10 14:11 | XMS_ITS | Clinical Summary ---
Author Organization [address] [place] [address] Address [address] [place] [address] Phone Care Team Providers Care History Faculty Member Name Role Phone Pedro Hernandez MD Primary Care Provider [phone] Allergies No known active allergies Active Problems [...] due to animal dander 4 Arthropathic psoriasis ([facility] V24, [facility] V28 ) 08/07/2024 Essential hypertension 08/07/2024 Immunizations [...] age to complete this topic Insurance MEDICARE [facility] Care Teams History Faculty Member Relationship Specialty Start Date End Date Pedro Hernandez MD [address] [place] [address] Dr [place] PCP - General 06/10/24
--- OUTSIDE RECORDS SUMMARY | 2025-05-10 14:12 | XMS_ITS | Patient Health Record ---
Author Organization [facility] Address [address] [place] [address] Care Team Providers Care News Gathering Technician Name Role Phone David (RETIRED) Pedro MIX Primary Care Provide r Unavailable Jamie Jarvis Unavailable [phone] Allergies No Known Allergies Reason For Referral [...] Problem Status W/U Status Risk Notes Problem [id number] Encounter for screening for malignant neoplasm of colon (Z12.11) Active confirmed Problem [id number] Preprocedural examination (Z01.818) Active confirmed Problem Diverticular disease of colon (204315807) Colon, diverticulosis (K57.30) Active confirmed Plan Of Treatment Future Test Test Name Order Date COLONOSCOPY 09/06/2021 Insurance Providers Payer Name Payer Address Payer Phone Subscriber Number Group Number Insured Name Patient Relationship to Insured Coverage Start Date Coverage End Date MEDICARE OF [place] [address] NE[place] [id number] ANNA LORENZO Self - patient is the insured MED[employer] ATTN CLAIMS [address] [place] [address] [id number] ANNA LORENZO Self - patient is the insured Medical (General) History Medical History History ICD Code Denies [place],DM,CVA,Lung disease,renal dise ase Hypertension Enviromental allergies Neg screening colonoscopy in 2009 except for a lipoma in the area of the hepatic flexure Surgical History Surgery Date(Month/Year) Knee replacement on the left 2019
== END 2025-05-11 11:25 | disposition home or self-care (01) ==
LOC: HO.HMGAL 12:59
PROVIDERS: PCP Internal Medicine; Visit Provider Registered Nurse Emergency
DX: J30.89 Other allergic rhinitis (principal)
CPT/HCPCS: 95117; 95165

== ENCOUNTER 2025-06-09 14:18 | Outpatient (AMB) | payer MEDICARE, SELFPAY ==
--- OUTSIDE RECORDS SUMMARY | 2025-06-09 17:02 | XMS_ITS | Clinical Summary ---
Author Organization [address] [place] [address] Address [address] [place] [address] Phone Care Team Providers Care Histopathologist Name Role Phone Pedro Hernandez MD Primary Care Provider [phone] Allergies No known active allergies Active Problems [...] due to animal dander 4 Arthropathic psoriasis ([facility] V24, [facility] V28 ) 08/07/2024 Essential hypertension [...] Depression Screening 09/16/2024 COVID-19 Vaccine ( season) 2025 07/01/2024, 06/12/2023, 08/22/2022, Additional history exists Influenza [...] age to complete this topic Insurance MEDICARE [facility] Care Teams Histopathologist Relationship Specialty Start Date End Date Pedro Hernandez MD [address] [place] [address] Dr [place] PCP - General 06/10/24
--- OUTSIDE RECORDS SUMMARY | 2025-06-09 17:02 | XMS_ITS | Encounter Summary ---
Author Organization [facility] Address [address] [place] [address] Phone Care Team Providers Care Press Machine Feeder Name Role Phone Pedro Hernandez MD Unavailable Berna Carroll MD Unavailable [phone] Pedro Hernandez MD Primary Care Provider Shanell Maddox MD Primary Care Provider Encounter Details Date Type Department Care Team (Late st Contact Info) Description 01/31/2018 Ancillary Orders Virtual Department [address] [place] [address] Pedro Hernandez MD [address] [place] [address] [place] [address] Breast screening Social History Tobacco Use Types [...] Department Care Team (Latest Contact Info) Description 06/14/2025 8:00 AM EDT Pre-Admission Testing Pre Procedure Evaluation [address] [place] [address] Teja Daley MD [address] [place] [address] Orthopedics & Sports Medicine, [facility] [place] [address] [email or web address] 06/15/2025 Procedure Pass OR Admitting Dept - Virtual Department [address] [place] [address] 06/15/2025 7:30 AM EDT Hospital Encounter OR Admitting Dept - Virtual Department [address] [place] [address] Teja Daley MD [address] [place] [address] Orthopedics & Sports [facility], [place] [address] [email or web address] 06/15/2025 7:30 AM EDT - 06/15/2025 10:23 AM EDT Surgery OR Admitting Dept - Virtual Department [address] [place] [address] Teja Daley MD [address] [place] [address] Orthopedics Sports [facility], [place] [address] [email or web address] ARTHROPLASTY TOTAL KNEE 06/29/2025 10:00 AM EDT Office Visit [facility] Orthopedics & Sports Medicine [address] [place] [address] Siomara Vidal PA-C [address] [place] [address] Orthopedics Sports [facility], [place] [address] [email or web address] 07/12/2025 3:15 PM EDT Office Visit [facility] Rehabilitation Services [address] [place] [address] Siomara Vidal PA-C [address] [place] [address] Orthopedics Sports [facility], [place] [address] [email or web address] Saniya Calero, PT [address] [place] [address] 07/15/2025 2:00 PM EDT Office Visit [address] [address] Siomara Vidal PA-C 4 [facility] Sports [facility], [place], [place] [id number] [email or web address] Saniya Calero, PT [address] [place], [place] [phone] 07/19/2025 1:15 PM EST Office Visit [address] [address] Siomara Vidal PA-C 4 [facility], [place] [address] [email or web address] Shyla Hinton, CORPORATION SECRETARY [address] [place] [address] [email or web address] 07/23/2025 11:45 AM EST Office Visit [address] [phone] Siomara Vidal PA-C 4 [facility], [place], [place] [id number] [email or web address] Shyla Hinton, CORPORATION SECRETARY [address] [place], [place] [phone] [email or web address] 07/27/2025 10:45 AM EST Office Visit [address] [address] Siomara Vidal PA-C 4 [facility], [place], [place] [id number] [email or web address] Saniya Calero, PT [address] [place] [address] 07/29/2025 10:00 AM EST Office Visit [facility] Orthopedics & Sports Medicine [address] [place] [address] Teja Daley MD [address] [place] [address] [place] [address] [email or web address] 07/30/2025 11:45 AM EST Office Visit [address] [address] Siomara Vidal PA-C 4 [facility] [place] [address] [email or web address] Shyla Hinton, SANIA [address] [place] [address] [email or web address] 08/03/2025 10:45 AM EST Office Visit [address] [address] Siomara Vidal PA-C [address] [place] [address] Orthopedics Sports [place], [place] [phone] [email or web address] Saniya Calero, PT [address] [place] [address] 08/06/2025 11:45 AM EST Office Visit [address] [phone] Siomara Vidal PA-C [address] [place] [address] [place] [address] [email or web address] Shyla Hinton, CORPORATION SECRETARY [address] [place] [address] [email or web address] 08/09/2025 11:15 AM EST Office Visit [address] [address] Siomara Vidal PA-C 4 [facility], [place] [address] [email or web address] Saniya Calero, PT [address] [place] [address] 08/11/2025 11:15 AM EST Office Visit [address] [address] Siomara Vidal PA-C 4 [facility], [place] [address] [email or web address] Saniya Calero, PT [address] [place] [address] 08/16/2025 11:45 AM EST Office Visit [address] [address] Siomara Vidal PA-C 4 [facility], [place] [address] [email or web address] Shyla Hinton, CORPORATION SECRETARY [address] [place] [address] [email or web address] 08/19/2025 10:45 AM EST Office Visit [address] [address] Siomara Vidal PA-C 4 [facility], [place] [address] [email or web address] Saniya Calero, PT [address] [place] [address] [email or web address] Scheduled Procedures Name Priority Associated Diagnoses Date/Ti me ARTHROPLASTY TOTAL KNEE Primary localized osteoarthritis of right knee 06/15/2025 7:30 AM EDT documented as of this encounter [...] There are scattered fibroglandular densities. POS - [id number] Narrative 03/14/2018 9:07 AM EDT 63-year-old female [...] There are scattered fibroglandular densities. POS - [id number] Pedro Hernandez MD IMG MG EXAMS Final R esult documented in this encounter Visit Diagnoses Diagnosis Breast screening Breast screening, unspecified Breast screening Breast screening, unspecified Primary localized osteoarthritis of right knee Status post total right knee replacement- Primary documented in this encounter Care Teams Press Machine Feeder Relationship Specialty Start Date End Date Pedro Hernandez MD [address] [place] [address] Dr TYLER [facility] [place] [address] PCP - General Internal Medicine 01/31/18 01/19/25 Shanell Maddox MD [address] [place] [address] [place] [address] PCP - General Internal Medicine 01/20/25 Pedro Hernandez MD [address] [place] [address] Dr TYLER [address] [place] [address] [address] Historical LMR Provider 07/06/17 2 Berna Carroll MD [address] [place] [address] Historical LMR Provider 07/06/17 2 documented as of this encounter Additional Source Comments The information contained in this document represents components of the legal health record. It is not the complete legal health record.[facility]
--- OUTSIDE RECORDS SUMMARY | 2025-06-09 17:02 | XMS_ITS | Clinical Summary ---
Author Organization [facility] Address [address] [place] [address] Phone Care Team Providers Care Hydraulic Press Servicer Name Role Phone Shanell Maddox MD Primary Care Provider Allergies Active Allergy Reactions Criticality Noted Date Comments Other 05/29/2023 Oxycodone-Acetaminophen Nausea Only 05/29/2023 Medications lisinopril (PRINIVIL,ZESTRIL) 10 MG tablet Take 10 mg by mouth daily. Active diclofenac sodium (VOLTAREN) 75 MG EC tablet Take 1 tablet (75 mg total) by mouth 2 (two) times a day. 60 tablet 1 05/10/20 25 Active omeprazole (PRILOSEC) 20 MG capsule Take 20 mg by mouth daily. Active calcium carbonate 500 mg (200 mg elemental) chewable tablet Take 1 tablet by mouth daily. Active omega 8-wun-jmn-fish oil 1,000 mg (120 mg-180 mg) Cap Take 1 capsule by mouth daily. 025 Discontinued cholecalciferol (VITAMIN D3) 25 MCG (1,000 unit) tablet Take 1,000 Units by mouth daily. 025 Discontinued TURMERIC ORAL Take by mouth. 025 Discontinued calcium carbonate 1,250 mg (500 mg elemental) capsule Take 1,250 mg by mouth 2 (two) times a day with meals. 025 Discontinued celecoxib (CELEBREX) 200 MG capsuleIndications :Primary localized osteoarthritis of right knee Take 1 capsule (200 mg total) by mouth daily. Take with food. 30 capsule 12 025 Discontinued Active Problems Problem Noted Date Diagnosed Date Primary localized osteoarthritis of right knee 0 01/27/2025 Encounters Date Type Department Care Team Description 05/20/2025 10:03 AM EDT - 05/20/2025 11:59 PM EDT Hospital Encounter [address] [address] Siomara Vidal PA-C Discharge Disposition: Home or Self Care 05/20/2025 10:00 AM EDT Office Visit [facility] Orthopedics & Sports Medicine [address] [place] [address] Siomara Vidal PA-C Primary localized osteoarthritis of right knee (Primary Dx); Pre-op exam 05/20/2025 Orders Only [facility] [address] [place] [address] Homehealth, Interface ProviderMD from Last 3 Months Social History Tobacco Use Types Packs/Day Years Used Date Smoking Tobacco: Never Smokeless Tobacco: Never Alcohol Use Standard Drinks/Week Comments Yes 2 (1 standard drink = 0.6 oz pur e alcohol) Education Answer Date Recorded Are you interested in more education? Not on rebeca e 01/11/2023 Are you concerned about learning? Not on file 01/11/2023 No 01/11/2023 No 01/11/2023 Digital Access Answer Date Recorded No 02/11/2023 No 02/11/2023 Reliable internet access at home? Not on file 02/11/2023 Device with a working camera? Not on file Comments No Sex and Gender Information Value Date Recorded Sex Assigned at Not on file Legal Sex Female 9:57 PM EDT Gender Identity Not on file Sexual Orientation Not on file Last Filed Vital Signs Vital Sign Reading Time Taken Comments Blood Pressure 135/80 05/20/2025 9:56 AM EDT Pulse 59 05/20/2025 9:56 AM EDT Temperature - - Respiratory Rate - - Oxygen Saturation - - Inhaled Oxygen Concentration - - Weight 95.7 kg (211 lb) 06/03/2025 1:08 PM EDT Height 172.7 cm (5' 8 ) 06/03/2025 1:08 PM EDT Body Mass Index 32.08 06/03/2025 1:08 PM EDT Plan of Treatment Upcoming Encounters Date Type Department Care Team (Latest Contact Info) Description 06/14/2025 8:00 AM EDT Pre-Admission Testing Pre Procedure Evaluation [address] [place] [address] Teja Daley MD [address] [place] [address] Orthopedics & Sports [facility], [place] [address] [email or web address] 06/15/2025 Procedure Pass OR Admitting Dept - Virtual Department [address] [place] [address] 06/15/2025 7:30 AM EDT Hospital Encounter OR Admitting Dept - Virtual Department [address] [place] [address] Teja Daley MD [address] [place] [address] Orthopedics Sports [facility], [place] [address] [email or web address] 06/15/2025 7:30 AM EDT - 06/15/2025 10:23 AM EDT Surgery OR Admitting Dept - Virtual Department [address] [place] [address] Teja Daley MD [address] [place] [address] Orthopedics Sports [facility], [place] [address] [email or web address] ARTHROPLASTY TOTAL KNEE 06/29/2025 10:00 AM EDT Office Visit [facility] Orthopedics & Sports Medicine [address] [place] [address] Siomara Vidal PA-C [address] [place] [address] Orthopedics & Sports [facility], [place] [address] [email or web address] 07/12/2025 3:15 PM EDT Office Visit [facility] [address] [address] Siomara Vidal PA-C 4 [facility] Orthopedics Sports [facility], [place], [place] [phone] [email or web address] Saniya Calero, PT [address] [place] [address] 07/15/2025 2:00 PM EDT Office Visit [address] [address] Siomara Vidal PA-C 4 [facility], [place] [address] [email or web address] Saniya Calero, PT [address] [place] [address] 07/19/2025 1:15 PM EST Office Visit [address] [address] Siomara Vidal PA-C 4 [facility], [place], [place] [phone] [email or web address] Shyla Hinton, INSPECTOR BOILER [address] [place] [address] [email or web address] 07/23/2025 11:45 AM EST Office Visit [address] [address] Siomara Vidal PA-C 4 [facility], [place], [place] [phone] [email or web address] Shyla Hinton, INSPECTOR BOILER [address] [place], [place] [phone] [email or web address] 07/27/2025 10:45 AM EST Office Visit [address] [phone] Siomara Vidal PA-C 4 [facility] Orthopedics Sports [facility], [place], [place] [phone] [email or web address] Saniya Calero, PT [address] [place] [address] 07/29/2025 10:00 AM EST Office Visit [facility] Orthopedics & Sports Medicine [address] [place] [address] Teja Daley MD [address] [place] [address] Orthopedics Sports [facility], [place], [place] [phone] [email or web address] 07/30/2025 11:45 AM EST Office Visit [address] [phone] Siomara Vidal PA-C [address] [place] [address] Orthopedics Sports [facility], [place], [place] [phone] [email or web address] Shyla Hinton, INSPECTOR BOILER [address] [place], [place] [phone] [email or web address] 08/03/2025 10:45 AM EST Office Visit [facility] [address] [place], [place] [phone] Siomara Vidal PA-C [address] [place] [address] Orthopedics Sports [facility], [place], [place] [phone] [email or web address] Saniya Calero, PT [address] [place] [address] 08/06/2025 11:45 AM EST Office Visit [address] [address] Siomara Vidal PA-C 4 [facility] Sports [facility], [place] [address] [email or web address] Shyla Hinton, INSPECTOR BOILER [address] [place] [address] [email or web address] 08/09/2025 11:15 AM EST Office Visit [address] [address] Siomara Vidal PA-C 4 [facility], [place] [address] [email or web address] Saniya Calero, PT [address] [place] [address] 08/11/2025 11:15 AM EST Office Visit [address] [address] Siomara Vidal PA-C 4 [facility], [place] [address] [email or web address] Saniya Calero, PT [address] [place], [place] [phone] 08/16/2025 11:45 AM EST Office Visit [address] [address] Siomara Vidal PA-C 4 [facility], [place], [place] [phone] [email or web address] Shyla Hinton, INSPECTOR BOILER [address] [place] [address] [email or web address] 08/19/2025 10:45 AM EST Office Visit [facility] [address] [place] [address] Siomara Vidal PA-C [address] [place] [address] Orthopedics & Sports Medicine, [place] [address] [email or web address] Saniya Calero, PT [address] [place] [address] [email or web address] Scheduled Procedures Name Priority Associated Diagnoses Date/Ti me ARTHROPLASTY TOTAL KNEE Primary localized osteoarthritis of right knee 06/15/2025 7:30 AM EDT Health Maintenance Due Date Last Done Comments LIPID PANEL 1954 DEPRESSION SCREENING 1966 HEPATITIS C SCREENING 02/08/1972 COLOGUARD 1999 COLONOSCOPY 1999 COLORECTAL CANCER SCREENING 1999 FIT TEST 1999 FOBT 1999 SIGMOIDOSCOPY 1999 VIRTUAL COLONOSCOPY 1999 ZOSTER VACCINES (3 of 3) 08/18/2018 06/23/2018, 06/16 OSTEOPOROSIS SCREENING INITIAL (ONE-TIME) 2019 MAMMOGRAM 03/14/2020 03/14/2018 INFLUENZA VACCINE (#1) 2025 , 06/12/2023, 07/10/2022, Additional history exists COVID-19 VACCINE ( season) 2025 07/01/2024, 06/12/2023, 08/22/2022, Additional history exists CREATININE LEVEL 02/02/2026 02/02/2025 POTASSIUM LEVEL 02/02/2026 02/02/2025 RSV VACCINE (1 - 1-dose 75+ series) 2029 Adult Td,Tdap Booster 08/25/2034 08/25/2024 PNEUMOCOCCAL VACCINES (50+ years) Completed 06/11/2022, 06/07/2021 SMOKING STATUS SCREENING (Once After 26 Yrs) Completed 06/03/2025 HEPATITIS A VACCINES Aged Out No long er eligible based on patient's age to complete this topic HIB VACCINES Aged Out No longer eligi ble based on patient's age to complete this topic MENINGOCOCCAL VACCINES (ACWY) Aged Out No longer eligible based on patient's age to complete this topic MENINGOCOCCAL VACCINES (B) Aged Out N o longer eligible based on patient's age to complete this topic Medical Devices Implanted Type Area Dip Filler Device Identifier Shelf Expiration Date Model / Serial / Lot Prosthetic Joint Prosthetic Joint Left: Knee Procedures Procedure Name Priority Date/Time Associated Diagnosis Comments XR KNEE 4 OR MORE VIEWS (RIGHT) Routine 05/20/2025 10:22 AM EDT Primary localized osteoarthritis of right knee Pre-op exam MRSA/MSSA PRE-OP PCR Routine 05/20/2025 10:03 AM EDT Pre-op exam BASIC METABOLIC PANEL Routine 02/02/2025 11:26 AM EDT Primary localized osteoarthritis of right knee BI MAMMOGRAM SCREENING WITH TOMOSYNTHESIS WITH CAD (BILATERAL) Routine 03/14/2018 8:16 AM EDT Breast screening from Last 3 Months or Most Recently Relevant to Health Maintenance Results * XR KNEE 4 OR MORE VIEWS (RIGHT) (05/20/2025 10:22 AM EDT) Narrative SYSTEMGENERATED, DOCUMENTATION - 05/20/2025 10:22 AM EDT This image report has been auto-finalized and has not been read by a Radiologist. Interpretation has been included in the provider encounter note for this date of service. Siomara Vdial PA-C IMG XR LOWER EXTREMITY F inal Result * Staphylococcus aureus (MRSA/MSSA) PCR, Preoperative (05/20/2025 10:03 AM EDT) MRSA PCR SCREEN Negative Negative [facility] Staph Aureus PCR Screen Negative Negative [facility] Comment:The Xpert MRSA Assay is intended to aid in the prevention and control of MRSA infections in healthcare settings. The assay is not intended to diagnose nor to guide or monitor treatment for MRSA infections. Other (Nasal) 05/20/2025 10: 03 AM EDT 05/20/2025 4:06 PM EDT us Siomara Vidal PA-C NON CULTURE MICROBIOLOGY Final Result Performing Organization Address City/[facility]/ZIP Co de Phone Number [address] [address] * (ABNORMAL) Basic metabolic panel (02/02/2025 11:26 AM EDT) SODIUM 138 133 - 146 mmol/L [facility] CHLORIDE 103 96 - 108 mmol/L [facility] POTASSIUM 4.1 3.3 - 5.1 mmol/L [facility] CO2 24 21 - 35 mmol/L [facility] BUN 16 6 - 19 mg/dL [facility] CREATININE 0.70 0.5 - 1.5 mg/dL [facility] GLUCOSE 107(H) 70 - 99 mg/dL [facility] CALCIUM 9.1 8.4 - 10.3 mg/dL [facility] EGFR 93 >59 mL/min/1.7 3m2 [facility] Comment:Estimated glomerular filtration rate calculated using the CKD-EPI refit equation. ANION GAP 15 10 - 20 mmol/L [facility] Blood 02/02/2025 11:2 6 AM EDT 02/02/2025 11:28 AM EDT us Teja Daley MD LAB BLOOD ORDERABLES Final Re sult Performing Organization Address City/[facility]/ZIP Co de Phone Number [address] [address] * BI MAMMOGRAM SCREENING WITH TOMOSYNTHESIS WITH CAD (BILATERAL) (03/14/2018 8:16 AM EDT) Anatomical Region Laterality Modality Breast Left, Breast Right, Breast Bilateral Bila teral Mammography 03/14/2018 8:07 AM EDT Impressions 03/14/2018 9:07 AM EDT No mammographic evidence of malignancy. Recommend routine annual surveillance. BI-RADS CATEGORY: 2 - Benign finding. DENSITY: There are scattered fibroglandular densities. POS - [id number] Narrative 03/14/2018 9:07 AM EDT 63-year-old female [...] There are scattered fibroglandular densities. POS - [id number] Pedro Hernandez MD IMG MG EXAMS Final R esult from Last 3 Months or Most Recently Relevant to Health Maintenance Insurance [employer] MEDEX SUPPLEMENT MEDICARE PART A & B [facility] MEDEX SUPPLEMENT MEDICARE PART A & B [employer] MEDEX SUPPLEMENT MEDICARE PART A & B [employer] MEDEX SUPPLEMENT MEDICARE PART A & B [employer] MEDEX SUPPLEMENT MEDICARE PART A & B [employer] MEDEX SUPPLEMENT MEDICARE PART A & B MEDICARE PART A & B [employer] MEDEX SUPPLEMENT MEDICARE PART A & B [employer] MED[employer] SUPPLEMENT MEDICARE PART A & B Care Teams Hydraulic Press Servicer Relationship Specialty Start Date End Date Shanell Maddox MD [address] [place] [address] [place] [address] PCP - General Internal Medicine 01/20/25 Additional Source Comments The information contained in this document represents components of the legal health record. It is not the complete legal health record.[facility]
--- OUTSIDE RECORDS SUMMARY | 2025-06-09 17:02 | XMS_ITS | Patient Health Record ---
Author Organization [facility] Address [address] [place] [address] Care Team Providers Care Roof Tile Layer Name Role Phone David (RETIRED) Pedro MIX Primary Care Provide r Unavailable Jamie Jarvis Unavailable [phone] Allergies No Known Allergies Reason For Referral [...] Problem Status W/U Status Risk Notes Problem [id number] Encounter for screening for malignant neoplasm of colon (Z12.11) Active confirmed Problem [id number] Preprocedural examination (Z01.818) Active confirmed Problem Diverticular disease of colon (253061985) Colon, diverticulosis (K57.30) Active confirmed Plan Of Treatment Future Test Test Name Order Date COLONOSCOPY 09/06/2021 Insurance Providers Payer Name Payer Address Payer Phone Subscriber Number Group Number Insured Name Patient Relationship to Insured Coverage Start Date Coverage End Date MEDICARE OF [place] [address] [place] [id number] ANNA LORENZO Self - patient is the insured MEDEX ATTN CLAIMS [address] [place] [address] [phone] [id number] ANNA LORENZO Self - patient is the insured Medical (General) History Medical History History ICD Code Denies ID,DM,CVA,Lung disease,renal dise ase Hypertension Enviromental allergies Neg screening colonoscopy in 2009 except for a lipoma in the area of the hepatic flexure Surgical History Surgery Date(Month/Year) Knee replacement on the left 2019
--- OUTSIDE RECORDS SUMMARY | 2025-06-09 17:02 | XMS_ITS | Encounter Summary ---
Author Organization [facility] Address [address] [place] [address] Phone Care Team Providers Care School Health Aide Name Role Phone Pedro Hernandez MD Unavailable [phone] Berna Carroll MD Unavailable [phone] Pedro Hernandez MD Primary Care Provider Shanell Maddox MD Primary Care Provider [phone] Reason for Referral * Physical Therapy (Routine) - Closed Specialty Diagnoses / Procedures Referred By Contissac t Referred To Contact Physical Therapy Diagnoses L TKA System, Provider Not In, PhD [id number] [place] [address] Phone: tel: Referral ID Status Reason Start Date Expiration Date Visits Re quested Visits Authorized [id number] Closed 12/01/2018 07/16/2019 25 25 Encounter Details Date Type Department Care Team (Latest Contact Info) Description 12/01/2018 Transcribe Orders [facility] [address] [place] [address] Teja Daley MD [address] [place] [address] [facility] [place] [address] [email or web address] Encounter for rehabilitation (Primary Dx) Social [...] AM EDT Pre-Admission Testing Pre Procedure Evaluation [address] [place] [address] Teja Daley MD [address] [place] [address] Orthopedics & Sports [facility], [place] [address] [email or web address] 06/15/2025 Procedure Pass OR Admitting Dept - Virtual Department [address] [place] [address] 06/15/2025 7:30 AM EDT Hospital Encounter OR Admitting Dept - Virtual Department [address] [place] [address] Teja Daley MD [address] [place] [address] Orthopedics Sports [facility], [place] [address] [email or web address] 06/15/2025 7:30 AM EDT - 06/15/2025 10:23 AM EDT Surgery OR Admitting Dept - Virtual Department [address] [place] [address] Teja Daley MD [address] [place] [address] Orthopedics & Sports [facility], [place] [address] [email or web address] ARTHROPLASTY TOTAL KNEE 06/29/2025 10:00 AM EDT Office Visit [facility] Orthopedics & Sports Medicine [address] [place] [address] Siomara Vidal PA-C [address] [place] [address] Orthopedics Sports [facility], [place] [address] [email or web address] 07/12/2025 3:15 PM EDT Office Visit [address] [address] Siomara Vidal PA-C 4 [facility] Orthopedics Sports [facility], [place] [address] [email or web address] Saniya Calero, PT [address] [place] [address] 07/15/2025 2:00 PM EDT Office Visit [address] [address] Siomara Vidal PA-C 4 [facility], [place] [address] [email or web address] Saniya Calero, PT [address] [place] [address] 07/19/2025 1:15 PM EST Office Visit [address] [address] Siomara Vidal PA-C 4 [facility], [place], [place] [phone] [email or web address] Shyla Hinton, TERMINAL MAKE UP OPERATOR [address] [place] [address] [email or web address] 07/23/2025 11:45 AM EST Office Visit [address] [address] Siomara Vidal PA-C 4 [facility], [place], [place] [phone] [email or web address] Shyla Rodriguez, TERMINAL MAKE UP OPERATOR [address] [place] [address] [email or web address] 07/27/2025 10:45 AM EST Office Visit [address] [address] Siomara Vidal PA-C 4 [facility] Orthopedics & Sports [facility], [place] [address] [email or web address] Saniya Calero, PT [address] [place] [address] 07/29/2025 10:00 AM EST Office Visit [facility] Orthopedics & Sports Medicine [address] [place] [address] Teja Daley MD [address] [place] [address] Orthopedics Sports [facility], [place] [address] [email or web address] 07/30/2025 11:45 AM EST Office Visit [address] [address] Siomara Vidal PA-C 4 [facility], [place] [address] [email or web address] Shyla Rodriguez, TERMINAL MAKE UP OPERATOR [address] [place] [address] [email or web address] 08/03/2025 10:45 AM EST Office Visit [address] [phone] Siomara Vidal PA-C [address] [place] [address] Orthopedics Sports [facility], [place] [address] [email or web address] Saniya Calero, PT [address] [place], [place] [phone] 08/06/2025 11:45 AM EST Office Visit [address] [address] Siomara Vidal PA-C 4 [facility] Orthopedics [facility], [place] [address] [email or web address] Shyla Hinton, TERMINAL MAKE UP OPERATOR [address] [place], [place] [phone] [email or web address] 08/09/2025 11:15 AM EST Office Visit [address] [address] Siomara Vidal PA-C 4 [facility], [place] [address] [email or web address] Saniya Calero, PT [address] [place], [place] [phone] 08/11/2025 11:15 AM EST Office Visit [address] [phone] Siomara Vidal PA-C 4 [facility], [place], [place] [phone] [email or web address] Snaiya Calero, PT [address] [place], [place] [phone] 08/16/2025 11:45 AM EST Office Visit [address] [phone] Siomara Vidal PA-C 4 [facility] [place], [place] [phone] [email or web address] Shyla Hinton, TERMINAL MAKE UP OPERATOR [address] [place] [address] [email or web address] 08/19/2025 10:45 AM EST Office Visit [facility] [address] [place] [address] [phone] Siomara Vidal PA-C 4 [facility] [place], [place] [phone] [email or web address] Saniya Calero, PT [address] [place], [place] [phone] Scheduled Procedures Name Priority Associated Diagnoses Date/Ti me ARTHROPLASTY TOTAL KNEE Primary localized osteoarthritis of right knee 06/15/2025 7:30 AM EDT Scheduled Referrals Name Type Priority Associated Diagnoses Orde r Schedule Ambulatory referral to [facility] Physical Therapy Outpatient Referral Routine Encounter for rehabilitation Ordered: 12/01/2018 documented as of this encounter Visit Diagnoses Diagnosis Encounter for rehabilitation- Primary Primary localized osteoarthritis of right knee Status post total right knee replacement- Primary documented in this encounter Care Teams School Health Aide Relationship Specialty Start Date End Date Pedro Hernandez MD [address] [place] [address] [place] [address] PCP - General Internal Medicine 01/31/18 01/19/25 Shanell Maddox MD [address] [place] [address] Dr ASHA [place] [phone] PCP - General Internal Medicine 01/20/25 Pedro Hernandez MD [address] [place] [address] [place] [address] Historical LMR Provider 07/06/17 2 Berna Carroll MD [address] [place] [address] Historical LMR Provider 07/06/17 2 documented as of this encounter Additional Source Comments The information contained in this document represents components of the legal health record. It is not the complete legal health record.[facility]
== END 2025-06-09 14:24 | disposition home or self-care (01) ==
LOC: HO.HMGAL 14:18
PROVIDERS: PCP Internal Medicine; Visit Provider Registered Nurse Emergency
DX: J30.89 Other allergic rhinitis (principal)
CPT/HCPCS: 95117; 95165

== ENCOUNTER 2025-07-14 11:20 | Outpatient (AMB) | payer MEDICARE, SELFPAY ==
--- OUTSIDE RECORDS SUMMARY | 2025-07-09 10:00 | XMS_ITS | Encounter Summary ---
Author Organization [facility] Address [address] [place] [phone] Phone Care Team Providers Care Section Forest Fire Warden Name Role Phone Shanell Maddox MD Primary Care Provider + [phone] Reason for Visit * Auth/Cert (Routine) Specialty Diagnoses / Procedures Referred By Koko bearden Referred To Contact Referral ID Status Reason Start Date Expiration Date Visits Re quested Visits Authorized [id number] 1 1 Encounter Details Date Type Department Care Team (Late st Contact Info) Description 07/09/2025 10:00 AM EDT Home Care Visit [facility] [address] [place] [address] Sigifredo Borden, PT [address] [place] [address] [email or web address] PT OASIS DISCHARGE VISIT Social History Tobacco Use Types Packs/Day Years Used Date Smoking Tobacco: Never Smokeless Tobacco: Never Alcohol Use Standard Drinks/Week Comments Yes 2 (1 standard drink = 0.6 oz pur e alcohol) Home Health Assessment: Transportation Answer Date Recorded Lack of Transportation (Medical) No 07/09/2025 Lack of Transportation (Non-Medical) No 07/09/2025 Patient Unable or Declines to Respond No 07/09/2025 Education Answer Date Recorded Are you interested [...] on file documented as of this encounter Last Filed Vital Signs Vital Sign Reading Time Taken Comments Blood Pressure 120/74 07/09/2025 10:13 AM EDT Pulse 70 07/09/2025 10:13 AM EDT Temperature 36.6 C (97.8 F) 07/09/2025 10:13 AM EDT Respiratory Rate - - Oxygen Saturation 97% 07/09/2025 10:13 AM EDT Inhaled Oxygen Concentration - - Weight - - Height - - Body Mass Index - - documented in this encounter Plan of Treatment Upcoming Encounters Date Type Department Care Team (Late st Contact Info) Description 07/15/2025 2:00 PM EDT Office Visit [address] [address] Siomara Vidal PA-C 4 [facility], [place] [address] [email or web address] Saniya Dominguez, PT [address] [place] [address] [email or web address] 07/19/2025 1:15 PM EST Office Visit [address] [address] Siomara Vidal PA-C 4 [facility] [place] [address] [email or web address] Shyla Rodriguez PTA [address] [place] [address] [email or web address] 07/23/2025 11:45 AM EST Office Visit [address] [address] Siomara Vidal PA-C 4 [facility], [place] [address] Shyla Rodriguez, MARKETING EDITOR [address] [place] [address] 07/27/2025 10:45 AM EST Office Visit [address] [address] Siomara Vidal PA-C 4 [facility], [place], [place] [id number] Saniya Dominguez, PT [address] [place] [address] 07/29/2025 10:00 AM EST Office Visit [facility] [address] [place] [address] Teja Daley MD [address] [place] [address] Orthopedics Sports [facility], [place], [place] [id number] 07/30/2025 11:45 AM EST Office Visit [address] [address] Siomara Vidal PA-C [address] [place] [address] Orthopedics Sports [facility], [place] [address] Shyla Rodriguez, MARKETING EDITOR [address] [place], [place] [id number] 08/03/2025 10:45 AM EST Office Visit [address] [address] Siomara Vidal PA-C [address] [place] [address] Orthopedics & Sports [facility], [place], [place] [id number] [email or web address] Saniya Dominguez, PT [address] [place] [address] 08/06/2025 11:45 AM EST Office Visit [address] [address] Siomara Vidal PA-C 4 [facility], [facility]. [place], [place] [id number] [email or web address] Shyla Rodriguez, MARKETING EDITOR [address] [place] [address] 08/09/2025 11:15 AM EST Office Visit [address] [address] Siomara Vidal PA-C 4 [facility], [place], [place] [id number] [email or web address] Saniya Dominguez, PT [address] [place] [address] 08/11/2025 11:15 AM EST Office Visit [address] [address] Siomara Vidal PA-C 4 [facility], [facility]. [place], [place] [id number] [email or web address] Saniya Dominguez, PT [address] [place] [address] 08/16/2025 11:45 AM EST Office Visit [address] [address] Siomara Vidal PA-C 4 [facility] [place], [place] [id number] Saulosuleiman Shyla, MARKETING EDITOR [address] [place] [address] [email or web address] 08/19/2025 10:45 AM EST Office Visit [facility] [address] [place] [address] Siomara Vidal PA-C 4 [facility], [place] [address] Saniya Dominguez, PT [address] [place] [address] documented as of this encounter Visit Diagnoses Not on filedocumented in this encounter Home Health Visit - Care Plan Visit Details Visit Type -PT OASIS DISCHAR GE VISIT Discipline -Physical Therapy Problems Problem Description Start Date Status Goals Interve ntions HH - Medication Management Disciplines: All Active Home Health Disciplines 06/16/2025 Active 1 goal linked to scheduled/documen marc intervention 2 goal interventions scheduled/documen marc in this visit HH - Health Maintenance Disciplines: All Active Home Health Disciplines 06/16/2025 Active 1 goal linked to scheduled/documen marc intervention 1 goal intervention scheduled/documen marc in this visit HH - Focus of Care and Teaching Disciplines: All Active Home Health Disciplines w/RD 06/16/2025 Active 1 goal linked to scheduled/documen marc intervention 1 goal intervention scheduled/documen marc in this visit HH - Emergency Planning - Knowledge of Disciplines: All Active Home Health Disciplines 06/16/2025 Active 1 goal linked to scheduled/documen marc intervention 2 goal interventions scheduled/documen marc in this visit HH - Infection - Actual or Risk of Disciplines: All Active Home Health Disciplines 06/16/2025 Active 1 goal linked to scheduled/documen marc intervention 1 goal intervention scheduled/documen marc in this visit HH - Standard of Care Disciplines: All Active Home Health Disciplines 06/16/2025 Active 1 goal linked to scheduled/documen marc intervention 4 goal interventions scheduled/documen marc in this visit HH - Pain Disciplines: All Active Home Health Disciplines 06/16/2025 Active 1 goal linked to scheduled/documen marc intervention 3 goal interventions scheduled/documen marc in this visit HH - Orthopedic Aftercare Disciplines: All Active Home Health Disciplines 06/16/2025 Active 1 goal linked to scheduled/documen marc intervention 3 goal interventions scheduled/documen marc in this visit HH - Wound Disciplines: All Active Home Health Disciplines 06/16/2025 Active 1 goal linked to scheduled/documen marc intervention 1 goal intervention scheduled/documen marc in this visit HH - Mobility and Activity Tolerance - Impaired Disciplines: Physical Therapy 06/16/2025 Active 1 goal linked to scheduled/documen marc intervention 3 goal interventions scheduled/documen marc in this visit HH - Venous Thromboembolism - Risk of Disciplines: All Active Home Health Disciplines 06/16/2025 Active 1 goal linked to scheduled/documen marc intervention 1 goal intervention scheduled/documen marc in this visit HH - Edema - Actual or Risk of Disciplines: All Active Home Health Disciplines 06/16/2025 Active 1 goal linked to scheduled/documen marc intervention 2 goal interventions scheduled/documen marc in this visit Goals Goal Associated Problem Outcome Goal Met? Visit Notes HH - Safe medication management, avoid unnecessary harm related to medication errors and/or interactions HH - Medication Management No HH - Patient preferences will be utilized to achieve optimal wellness and home safety. HH - Health Maintenance No HH - Communication and collaboration to achieve patient goals HH - Focus of Care and Teaching No HH - Knowledge of options for managing care in the event of an emergency related situation. HH - Emergency Planning - Knowledge of No HH - Patient will have no new infection; any new infection that occurs will be identified and treated promptly; existing infection will resolve without complication Description: Patient and caregiver(s) will demonstrate understanding of infection prevention, monitoring, and treatment as appropriate HH - Infection - Actual or Risk of No HH - Achieve care management for a safe to home/community discharge from homecare HH - Standard of Care No HH - Frequency of pain interfering with patient's activity or movement will improve with activity or movement by discharge. Description: Pain will be managed over the course of care. Patient's acceptable level of pain is 1 - pain that doesn't interfere. HH - Pain No HH - Demonstrate/verbalize management of orthopedic aftercare HH - Orthopedic Aftercare No HH - Demonstrate/verbalize wound care management, wound/lesion will be free from complications HH - Wound No HH - Demonstrate maximum mobility and activity level for safe function Description: PT GOALS 10.1.25 1. Patient will demonstrate safe and independent transfers, all surfaces in home, car, by 10.25.25 MET 2. Patient will improve Tinetti score to > 24 /28 demonstrating improved ambulation and balance, reduce fall risk , by 10.25.25. MET 3. Patient will demonstrate right quad strength greater than 3/5, no extensor lag, AAROM = 0 to 110 deg flexion, allowing independent functional mobility; by 10.25.25 MET 4. Restore normal gait biomechanics with least restrictive device, endurance >400ft, on all surfaces; by 10.25.25 MET 5. Patient will be independent on stairs, curbs, to access community and be able to attend outpatient PT, by 10.25.25 MET 6. Patient will demonstrate satisfactory relief of pain, with pain level of <3/10, 90% of the time, allowing completing of ADLs, IDLs; by 10.25.25 7. Patient/Caregiver will demonstrate understanding of therapy instructions/ Home Exercise Program/ recommendations by completion of task with 90% accuracy allowing recovery of knee. 8. Patient/ Caregiver will demonstrate understanding of all equipment and all safety recommendations allowing patient to remain safely in home; by 10.25.25. MET 9. Patient/ caregiver will verbalize understanding of medication regime, including actions, side effects, drug interactions, ineffective or inadequate drug therapy so patient can remain safely in home, by 10.15.25 MET HH - Mobility and Activity Tolerance - Impaired No HH - Demonstrate/verbalize knowledge of venous thromboembolism prevention HH - Venous Thromboembolism - Risk of No HH - Demonstrate/verbalize knowledge of causes, impacts, and risks associated with edema HH - Edema - Actual or Risk of No Interventions Intervention Associated Problem/Goal Status Variance Visit Notes HH - I/E medication management: administration, purpose, dosages, preparation, setup, scheduling, side effects, food/drug interactions, and potential complications as indicated Description: Update patient's copy of medication list as needed. Problem:HH - Medication Management Goal:HH - Safe medication management, avoid unnecessary harm related to medication errors and/or interactions Completed HH - Complete medication review every visit and medication reconciliation as indicated. Pharmacy information: [facility]: [facility] Problem:HH - Medication Management Goal:HH - Safe medication management, avoid unnecessary harm related to medication errors and/or interactions Completed HH - Assess immunizations Description: UTD: COVID, FLU, Shingles, PNA Problem:HH - Health Maintenance Goal:HH - Patient preferences will be utilized to achieve optimal wellness and home safety. Completed HH - Focus of care, teaching completed and plan for next visit Problem:HH - Focus of Care and Teaching Goal:HH - Communication and collaboration to achieve patient goals Completed S: Doing well. Walking w/o device when arrived, typically not using cane indoors, but is using outdoors. Reports minimal pain and edema. Sleeping fairly well. Pleased w/ outcome, aware of d/c to OP PT today. Primary Clinical Focus this Visit & Instruction Provided: rx: ther ex/ HEP: QS, SLR x10, SAQ x15, HS x10, knee extn stretch x2 minutes, LAQ x10 active knee flexion x10 to end ROM= 110 deg standing ex: tip toes-rocks, x10, mini-squats x10, mini-lunges alternating x10, november x10. hip extn x10, knee flex x10. gait training thru home x 250ft w/o device balance: side stepping, turning, eyes closed, perturbation, narrow base, 360 deg turn= all good stability AROM= 0 to 110 deg TUG= 12 sec TInetti= 28/28 R knee quad= 4/5, hams= 4-/5. Instruction Provided to: patient Response to Instruction/Teachi ng: Is fully able to teach back topics as evidenced by demo of gait, HEP, safety, pain management. Plan for Next Visit Specific Focus & Education Needed: NA New Orders: NA Updated Discharge Plan: outpatient PT next wk HH - I/E management of care in an urgent or emergency (ER) situation: When to call your Home Care Team/911, ER plans, supplies, evacuation, when to contact local ER officials and how to stay informed Problem:HH - Emergency Planning - Knowledge of Goal:HH - Knowledge of options for managing care in the event of an emergency related situation. Completed HH - Emergency planning assessment: the emergency plan, supplies needed, emergency contact numbers and an evacuation plan were reviewed Description: Patient is knowledgeable of emergency plans. Problem: - Emergency Planning - Knowledge of Goal: - Knowledge of options for managing care in the event of an emergency related situation. Completed - Assess infection risk and s/s Problem: - Infection - Actual or Risk of Goal:HH - Patient will have no new infection; any new infection that occurs will be identified and treated promptly; existing infection will resolve without complication Completed - Assess vital signs, pulse oximetry, pain, and as indicated, orthostatic vital signs Description: use agency-specific parameters Problem: - Standard of Care Goal:HH - Achieve care management for a safe to home/community discharge from homecare Completed - Assess skin integrity Problem: - Standard of Care Goal:HH - Achieve care management for a safe to home/community discharge from homecare Completed - I/E discharge plan Problem: - Standard of Care Goal:HH - Achieve care management for a safe to home/community discharge from homecare Completed - Complete Saúl scale at SOC and weekly Problem: - Standard of Care Goal:HH - Achieve care management for a safe to home/community discharge from homecare Completed - Ice/heat therapy Description: x20 minutes ice to R knee PRN Problem: - Pain Goal: - Frequency of pain interfering with patient's activity or movement will improve with activity or movement by discharge. Completed - Assess pain Problem: - Pain Goal:HH - Frequency of pain interfering with patient's activity or movement will improve with activity or movement by discharge. Completed - I/E pain management Problem: - Pain Goal:HH - Frequency of pain interfering with patient's activity or movement will improve with activity or movement by discharge. Completed - I/E orthopedic management: normal healing process, abnormal findings, use of devices, and precautions/restriction s Problem: - Orthopedic Aftercare Goal:HH - Demonstrate/verbalize management of orthopedic aftercare Completed - Assess orthopedic aftercare and healing process. Assess peripheral circulation, pulses, color, sensation, and movement Problem: - Orthopedic Aftercare Goal:HH - Demonstrate/verbalize management of orthopedic aftercare Completed - Assess/order for braces, orthotics, splints, and/or equipment Problem: - Orthopedic Aftercare Goal:HH - Demonstrate/verbalize management of orthopedic aftercare Completed HH - Assess wounds/lesions/hannon Description: LOCATION: R knee Problem:HH - Wound Goal:HH - Demonstrate/verbalize wound care management, wound/lesion will be free from complications Completed HH - Therapeutic interventions, as indicated: Description: balance training, durable medical equipment training, gait/stair training, manual therapy/soft tissue mobilization , neuromuscular retraining/tone management, and desensitization techniques, A/AAROM R knee, therapeutic exercise/home exercise program and transfer training, including bathroom transfers safety/ falls prevention education Problem:HH - Mobility and Activity Tolerance - Impaired Goal:HH - Demonstrate maximum mobility and activity level for safe function Completed This visit Primary Clinical Focus this Visit & Instruction Provided: rx: ther ex/ HEP: QS, SLR x10, SAQ x15, HS x10, knee extn stretch x2 minutes, LAQ x10 active knee flexion x10 to end ROM= 110 deg standing ex: tip toes-rocks, x10, mini-squats x10, mini-lunges alternating x10, november x10. hip extn x10, knee flex x10. gait training thru home x 250ft w/o device balance: side stepping, turning, eyes closed, perturbation, narrow base, 360 deg turn= all good stability AROM= 0 to 110 deg Education re: progressing walking program 1-2 minutes per day Min fatigue at end of session, pain= 2/10 HH - I/E therapeutic function/activity: Description: As indicated: activity promotion and management, functional mobility training, therapeutic exercise and home exercise program, device use. Problem:HH - Mobility and Activity Tolerance - Impaired Goal:HH - Demonstrate maximum mobility and activity level for safe function Completed HH - Assess therapeutic function/activity and need for durable medical equipment Problem:HH - Mobility and Activity Tolerance - Impaired Goal:HH - Demonstrate maximum mobility and activity level for safe function Completed HH - Assess s/s of venous thromboembolism Problem:HH - Venous Thromboembolism - Risk of Goal:HH - Demonstrate/verbalize knowledge of venous thromboembolism prevention Completed HH - Assess edema Problem:HH - Edema - Actual or Risk of Goal:HH - Demonstrate/verbalize knowledge of causes, impacts, and risks associated with edema Completed HH - I/E edema management Problem:HH - Edema - Actual or Risk of Goal:HH - Demonstrate/verbalize knowledge of causes, impacts, and risks associated with edema Completed documented in this encounter Care Teams Section Forest Fire Warden Relationship Specialty Start Date End Date Shanell Maddox MD [address] [place] [address] [place] [id number] PCP - General Internal Medicine 01/20/25 documented as of this encounter Additional Source Comments The information contained in this document represents components of the legal health record. It is not the complete legal health record.[facility]
--- OUTSIDE RECORDS SUMMARY | 2025-07-12 15:15 | XMS_ITS | Encounter Summary ---
Author Organization [facility] Address [address] [place] [address] [place] [phone] Phone Care Team Providers Care Student Officer Name Role Phone Shanell Maddox MD Primary Care Provider + [phone] Reason for Visit * Physical Therapy (Routine) - Authorized Specialty Diagnoses / Procedures Referred By Koko bearden Referred To Contact Physical Therapy Diagnoses Primary localized osteoarthritis of right knee Pre-op exam Siomara Vidal PA-C 4 [facility], [place] [address] Phone: tel: fax: [email or web address] [facility] [address] [place] [address] Phone: tel: Referral ID Status Reason Start Date Expiration Date V isits Requested Visits Authorized [id number] Authorized 07/12/2025 05/20/2026 99 99 Encounter Details Date Type Department Care Team (Late st Contact Info) Description 07/12/2025 3:15 PM EDT Office Visit [facility] Rehabilitation Services [address] [place] [address] Siomara Vidal PA-C 4 [facility] Sports [facility], [place], [place] [phone] Saniya Dominguez, PT [address] [place], [place] [phone] Acute pain of right knee (Primary Dx); Hx of total knee replacement, right Social History Tobacco Use Types Packs/Day Years [...] on file documented as of this encounter Progress Notes * Saniya Dominguez, PT - 07/12/2025 3:15 PM EDT Subject Line: Evaluation Physical Therapy Initial Evaluation Patient Name: Angy Phillips Date of : 1955 Referring MD: Siomara Vidal PA-C [address] [place] [address] Orthopedics & Sports Medicine, [facility] [place] [place] [address] Evaluation Date: SOC Date: 07/12/25 Treatment Diagnosis: ICD-10-CM 1. Acute pain of right knee M25.561 2. Hx of total knee replacement, right Z96.651 Surgery: Right TKA Surgery Date: 06/15/2025 Surgeon Name/Practice: Dr. Daley SUBJECTIVE History of Present Illness: Pt presents following right TKA on 06/15/25. Per home health PT pt is doing well with minimal pain, 0-110 deg of ROM and use of cane with community ambulation. Pt was D/c from home health on 07/09. Her last follow up with ortho was 06/29, plans to see them on 07/29 for next follow up. Pt reports stiff in the morning and sore at times. Taking pain medication prn. Presents with no cane, reports she forgot it. Using the cane prn, mostly out of the house. Notes with movements loosens up. Pt denies numbness and tingling. At times a weird pain, but intermittent. Has grab bars in shower. Pt reports 20-25 minutes/day, pretty flat, uses cane. Pertinent Medical History and Co-morbidities: OA, HTN, left TKA (about [address] Daley) Precautions/Safety: None Home Environment Lives with: Kavitha (good friend) Stairs: second floor bedrooms (step-to pattern) -- one side railing (right ascending) Occupation: Retired Hobbies: 3 dogs (dog showing/agility), yoga, strength for life ([place]) Patient Stated Goals: Right knee replacement to function normally Pain Current: 10/26 Description: worse at night, global knee pain, stiff in the morning Aggravating Factors: stairs, walking Alleviating Factors: ice, advil prn OBJECTIVE Mobility Gait: mild limp STS: able to perform without UE support, mild off shift to L with eccentric Stairs: able to ascend and descend in reciprocal pattern with light UE support Glute bridge: good height, some cramping SLR: x5 on R no quad lag Range of Motion Knee Ext: R lacing 3* from 0* Flex: R 110* Strength Hip Flex: L 5/5, R 4+/5 ER: B 5/5 -- some pain on R IR: B 5/5 ABD: L 4/5, R 4-/5 Ext: L 4/5, R 4-/5 Knee Ext: B 5/5 Flex: B 5/5 Palpation: mild TTP with R patella mobs - WNL all planes Outcome Measures: 30 sec STS: 11 no UE support, mild pain and slight L weight transition with eccentric HEP: Continue with current HEP Therapeutic Ex Recumbent bike no resistance x5 min ASSESSMENT Prognosis: Good Barriers to Learning: none Clinical Assessment: Angy is a 70 y.o. female who presents s/p R TKA 06/15/25 . Patient demonstrates understanding of this assessment and will benefit from PT to increase function and mobility back to prior level of activity. Significant clinical findings include: decreased knee ROM, mild deviations in gait, decreased strength, and functional mobility. Skilled Physical therapy is medically necessary to improve ROM, strength and functional mobility. Patient provided with initial HEP printout, demonstrated and verbalized understanding. Goals: [X] indicates goal is met [ ] indicates goal is still in progress Established 07/12/2025 In the next 4 weeks, Patient will achieve: [ ] Pt will be independent with HEP to demonstrate compliance with POC and independence in management of symptoms [ ] Pt will reach 0* of R knee extension [ ] Pt will reach >/= 115* of R knee flexion [ ] Pt will wean from AD for community ambulation Established 07/12/2025 In the next 8 weeks, Patient will achieve: [ ] Pt will reach >/= 120* of R knee flexion [ ] Pt will report ascending and descending stairs at home in reciprocal pattern [ ] Pt will complete >/= 12 STS in 30 sec without increase in symptoms [ ] Pt will be able to tolerate light jogging for dog agility showings Plan: Physical therapy 1-2 x per week for 6-10 weeks. [ ] MD post op protocol [X ] Therapeutic Exercise 51354 Rom [X ] PROM [ X] AAROM [X ] AROM [X ] Strength Stability Flexibility Static, Dynamic PNF [X ] Balance [ X] Manual Therapy 32655 [ X] Edema Management [ ] Taping methods [ X] Soft tissue mobilization [ ] Joint mobilization [X ] Neuromuscular re-education 88811 [X ] firm surface [ X] ankle strategies [ X] hip strategies [ X] foam [X ] Wobble board [X ] Bosu [ X] Therapeutic Activities 57135 [ ] Bed mobility [X ] Transfers [ X] Stairs [X ] Lifting [X ] Carrying [X ] Squatting [ ] Self-care /home management / ADLs 20031 [ X] Gait Training 45643 [X ] Even terrain [X ] Uneven terrain [X ] Stairs [X ] Ramps/incline/decline [X ] Curb steps [ ] Estim attended 46226 [ ] NEMS / [ ] TENS [ ] Estim unattended 18003 [ ] NEMS / [ ] TENS [ ] Iontophoresis 16573 [ ] Orthotic evaluation 1st encounter [ ] Orthotic subsequent 94663 fit / training [ X] Re-evaluation 62600 [ ] Phys Perform Testing 66296 The complexity of this evaluation is based on standardized patient assessment instruments and/or standardized measurable functional outcome. Personal factors and co-morbidities that impact plan of care: none Education and/or treatment provided today: continue with home exercise program, edu on focus on knee extension passive stretch Frequency & Duration of Treatment Plan: Frequency: 1-2 x per week Duration: for 6-10 weeks Plan: Knee ext ROM, knee flexion ROM, functional mobility (gait, stairs and STS), bike The Patient/Family is in agreement with the plan of care. Thank you for this referral. Saniya Dominguez, PT [id number] documented in this encounter Plan of Treatment Upcoming Encounters Date Type Department Care Team (Late st Contact Info) Description 07/15/2025 2:00 PM EDT Office Visit [address] [address] Siomara Vidal PA-C 4 [facility] [place] [address] Saniya Dominguez, PT [address] [place] [address] 07/19/2025 1:15 PM EST Office Visit [address] [address] Siomara Vidal PA-C [address] [place] [address] Orthopedics & Sports Medicine, [place] [address] Shyla Rodriguez PTA [address] [place] [address] 07/23/2025 11:45 AM EST Office Visit [address] [address] Siomara Vidal PA-C [address] [place] [address] [facility], [place], [place] [phone] Shyla Rodriguez, TUNNEL HEADING SUPERVISOR [address] [place] [address] 07/27/2025 10:45 AM EST Office Visit [address] [phone] Siomara Vidal PA-C 4 [facility] Orthopedics Sports [facility], [place], [place] [phone] Saniya Dominguez, PT [address] [place] [address] 07/29/2025 10:00 AM EST Office Visit [facility] [address] [place] [address] Teja Daley MD [address] [place] [address] Orthoped[facility] Sports Medicine, [place] [address] 07/30/2025 11:45 AM EST Office Visit [address] [phone] Siomara Vidal PA-C 4 [facility], [place], [place] [phone] Shyla Rodriguez, TUNNEL HEADING SUPERVISOR [address] [place], [place] [phone] 08/03/2025 10:45 AM EST Office Visit [address] [phone] Siomara Vidal PA-C 4 [facility] [place], [place] [phone] Saniya Dominguez, PT [address] [place] [address] 08/06/2025 11:45 AM EST Office Visit [address] [phone] Siomara Vidal PA-C 4 [facility] Orthopedics Sports [facility], [place], [place] [address] Shyla Rodriguez, TUNNEL HEADING SUPERVISOR [address] [place] [address] 08/09/2025 11:15 AM EST Office Visit [address] [address] Siomara Vidal PA-C 4 [facility] Sports [facility], [place], [place] [phone] Saniya Dominguez, PT [address] [place] [address] 08/11/2025 11:15 AM EST Office Visit [address] [address] Siomara Vidal PA-C 4 [facility] Sports [facility], [place], [place] [phone] Saniya Dominguez, PT [address] [place] [address] 08/16/2025 11:45 AM EST Office Visit [address] [address] Siomara Vidal PA-C 4 [facility] Orthopedics & Sports [facility], [place], [place] [phone] Nericecilio Shyla, TUNNEL HEADING SUPERVISOR [address] [place] [address] 08/19/2025 10:45 AM EST Office Visit [address] [address] Siomara Vidal PA-C 4 [facility] Orthopedics Sports [facility], [place], [place] [phone] Saniya Dominguez, PT [address] [place] [address] Scheduled Referrals Name Type Priority Associated Diagnoses Orde r Schedule Ambulatory referral to [facility] Physical Therapy Outpatient Referral Routine Primary localized osteoarthritis of right knee Pre-op exam Ordered: 05/20/2025 documented as of this encounter Visit Diagnoses Diagnosis Acute pain of right knee- Primary Hx of total knee replacement, right documented in this encounter Care Teams Student Officer Relationship Specialty Start Date End Date Shanell Maddox MD [address] [place] [address] [place] [id number] PCP - General Internal Medicine 01/20/25 documented as of this encounter Additional Source Comments The information contained in this document represents components of the legal health record. It is not the complete legal health record.[facility]
--- OUTSIDE RECORDS SUMMARY | 2025-07-14 14:27 | XMS_ITS | Encounter Summary ---
Author Organization [facility] Address [address] [place] [address] [place] [address] Phone Care Team Providers Care Betting Agency Manager Name Role Phone Pedro Hernandez MD Unavailable [phone] Berna Carroll MD Unavailable [phone] Pedro Hernandez MD Primary Care Provider Shanell Maddox MD Primary Care Provider [phone] Encounter Details Date Type Department Care Team (Late st Contact Info) Description 01/31/2018 Ancillary Orders Virtual Department [address] [place] [address] Pedro Hernandez MD [address] [place] [address] [place] [address] Breast screening Social History Tobacco Use Types [...] Description 07/15/2025 2:00 PM EDT Office Visit [facility] [address] [place], [place] [phone] Siomara Vidal PA-C 4 [facility] [place] [address] Saniya Dominguez, PT [address] [place] [address] 07/19/2025 1:15 PM EST Office Visit [address] [address] Siomara Vidal PA-C [address] [place] [address] Orthopedics Sports [facility], [place], [place] [phone] Shyla Rodriguez, ELECTRIC WHEELCHAIR REPAIRER [address] [place] [address] 07/23/2025 11:45 AM EST Office Visit [address] [address] Siomara Vidal PA-C [address] [place], [place] [address]s Sports [facility], [place] [address] Michael Shyla, ELECTRIC WHEELCHAIR REPAIRER [address] [place] [address] 07/27/2025 10:45 AM EST Office Visit [address] [address] Siomara Vidal PA-C [address] [place] [address] Orthopedics Sports [facility], [place], [place] [phone] Saniya Dominguez, PT [address] [place] [address] 07/29/2025 10:00 AM EST Office Visit [facility] Sports Medicine [address] [place] [address] [phone] Teja Daley MD [address] [place] [address] Orthopedics & Sports [facility], [place], [place] [phone] 07/30/2025 11:45 AM EST Office Visit [address] [address] Siomara Vidal PA-C 4 [facility] Sports [facility], [place], [place] [phone] Shyla Rodriguez, ELECTRIC WHEELCHAIR REPAIRER [address] [place] [address] 08/03/2025 10:45 AM EST Office Visit [address] [address] Siomara Vidal PA-C 4 [facility], [place] [address] Saniya Dominguez, PT [address] [place] [address] 08/06/2025 11:45 AM EST Office Visit [address] [address] Siomara Vidal PA-C 4 [facility], [place], [place] [phone] Shyla Rodriguez, ELECTRIC WHEELCHAIR REPAIRER [address] [place] [address] 08/09/2025 11:15 AM EST Office Visit [address] [address] Siomara Vidal PA-C 4 [facility], [place], [place] [phone] Saniya Dominguez, PT [address] [place], [place] [phone] 08/11/2025 11:15 AM EST Office Visit [address] [phone] Siomara Vidal PA-C 4 [facility], [place], [place] [phone] Saniya Dominguez, PT [address] [place], [place] [phone] 08/16/2025 11:45 AM EST Office Visit [address] [address] Siomara Vidal PA-C 4 [facility], [place], [place] [phone] Shyla Rodriguez, ELECTRIC WHEELCHAIR REPAIRER [address] [place], [place] [phone] 08/19/2025 10:45 AM EST Office Visit [address] [phone] Siomara Vidal PA-C 4 [facility], [place], [place] [phone] Saniya Dominguez, PT [address] [place], [place] [phone] documented as of this encounter Results * [...] There are scattered fibroglandular densities. POS - [id number] Narrative 03/14/2018 9:07 AM EDT 63-year-old female [...] There are scattered fibroglandular densities. POS - [id number] Pedro Hernandez MD IMG MG EXAMS Final R esult documented in this encounter Visit Diagnoses Diagnosis Breast screening Breast screening, unspecified Breast screening Breast screening, unspecified documented in this encounter Care Teams Betting Agency Manager Relationship Specialty Start Date End Date Pedro Hernandez MD [address] [place] [address] [place] [address] PCP - General Internal Medicine 01/31/18 01/19/25 Shanell Maddox MD [address] [place] [address] [place] [address] PCP - General Internal Medicine 01/20/25 Pedro Hernandez MD [address] [place] [address] [place] [address] Historical LMR Provider 07/06/1709/23/2 2 Berna Carroll MD [address] [place] [address] Historical LMR Provider 07/06/1709/23/2 2 documented as of this encounter Additional Source Comments The information contained in this document represents components of the legal health record. It is not the complete legal health record.[facility]
--- OUTSIDE RECORDS SUMMARY | 2025-07-14 14:27 | XMS_ITS | Clinical Summary ---
Author Organization [facility] Address [address] [place] [id number] Phone Care Team Providers Care Electrical Maintenance Mechanic Name Role Phone Shanell Maddox MD Primary Care Provider + [phone] Allergies Active Allergy Reactions Criticality Noted Date Comments Other 05/29/2023 Oxycodone-Acetaminophen Nausea Only 05/29/2023 Medications lisinopril (PRINIVIL,ZESTRIL ) 10 MG tablet Take 10 mg by mouth daily. Active omeprazole (PRILOSEC) 20 MG capsule Take 20 mg by mouth daily. Active calcium carbonate 500 mg (200 mg elemental) chewable tablet Take 1 tablet by mouth daily. Active docusate sodium (COLACE) 100 MG capsule Take 1 capsule (100 mg total) by mouth 2 (two) times a day as needed for mild constipation . 06/15/20 25 Active senna (SENOKOT) 8.6 mg tablet Take 1 tablet by mouth daily as needed for constipation . 06/15/20 25 Active aspirin 81 MG EC tablet Take 1 tablet (81 mg total) by mouth 2 (two) times a day. For 4 weeks post surgery. 06/15/20 25 2024 Active acetaminophen (TYLENOL) 500 MG tablet Take 2 tablets (1,000 mg total) by mouth every 8 (eight) hours. 06/15/20 25 Active celecoxib (CELEBREX) 100 MG capsule Take 1 capsule (100 mg total) by mouth 2 (two) times a day for 14 days. 28 capsule 06/15/20 25 Active ondansetron (ZOFRAN-ODT) 4 MG disintegrating tabletIndications :Post-operative pain,Nausea Take 1 tablet (4 mg total) by mouth every 8 (eight) hours as needed for nausea. 15 tablet 06/21/20 25 Active diclofenac sodium (VOLTAREN) 75 MG EC tablet Take 75 mg by mouth 2 (two) times a day. 07/02/20 25 Active diclofenac sodium (VOLTAREN) 75 MG EC tablet Take 1 tablet (75 mg total) by mouth 2 (two) times a day. 60 tablet 1 05/10/20 25 2024 Discontinued(S top Taking at Discharge) traMADoL (ULTRAM) 50 mg tablet Take 1 tablet (50 mg total) by mouth every 6 (six) hours as needed for pain (specific location in comments) (for post operative right knee pain. Take smallest, least frequent effective dose.). 30 tablet 06/15/20 25 2024 Discontinued HYDROcodone-aceta minophen (NORCO) 5-325 mg per tabletIndications :Post-operative pain,S/P TKR (total knee replacement), right Take 1 tablet by mouth every 6 (six) hours as needed for pain (specific location in comments) (Right knee). Partial fill ok 30 tablet 06/21/20 25 2024 Discontinued Active Problems Problem Noted Date Diagnosed Date Primary localized osteoarthritis of right knee 0 01/27/2025 Essential hypertension 08/07/2024 Psoriasis vulgaris 06/16/2014 Encounters Date Type Department Care Team Description 07/12/2025 3:15 PM EDT Office Visit [address] [address] Siomara Vidal, Saniya Castillo, PT Acute pain of right knee (Primary Dx); Hx of total knee replacement, right 07/12/2025 Plan of Care Documentation [address] [address] 07/09/2025 10:00 AM EDT Home Care Visit [facility] [address] [place] [address] Sigifredo Borden, PT PT OASIS DISCHARGE VISIT 07/05/2025 11:45 AM EDT Home Care Visit [facility] [address] [place] [address] Cassie Jason SENIOR BILLING CONSULTANT SENIOR BILLING CONSULTANT HOME VISIT 07/02/2025 10:00 AM EDT [facility] [address] [place] [address] Sigifredo Borden, PT PT HOME VISIT 06/29/2025 2:15 PM EDT [facility] [address] [place] [address] Cassie Jason SENIOR BILLING CONSULTANT SENIOR BILLING CONSULTANT HOME VISIT 06/29/2025 10:01 AM EDT - 06/29/2025 11:59 PM EDT Hospital Encounter [address] [address] Siomara Vidal PA-C Discharge Disposition: Home or Self Care 06/29/2025 10:00 AM EDT Office Visit [facility] [address] [place] [phone] Siomara Vidal PA-C Status post total right knee replacement (Primary Dx) 06/26/2025 Refill [facility] [address] [address] Braden Gutiérrez PA-C Medication Refill 06/25/2025 11:00 AM EDT [facility] [address] [place] [address] Cassie Jason, SENIOR BILLING CONSULTANT SENIOR BILLING CONSULTANT HOME VISIT 06/23/2025 10:15 AM EDT [facility] [address] [place] [address] Cassie Jason, SENIOR BILLING CONSULTANT SENIOR BILLING CONSULTANT HOME VISIT 06/21/2025 11:00 AM EDT [facility] [address] [place] [address] Cassie Jason SENIOR BILLING CONSULTANT SENIOR BILLING CONSULTANT HOME VISIT 06/21/2025 Orders Only [facility] [address] [place] [address] Siomara Vidal PA-C 06/18/2025 10:00 AM EDT [facility] [address] [place] [address] Sigifredo Borden, PT PT HOME VISIT 06/17/2025 10:00 AM EDT Home [facility] Visit [facility] [address] [place] [address] Sigifredo Borden, PT PT HOME VISIT 06/17/2025 Telephone [facility] [address] [place] [phone] Sammie Cuenca RN Postop call 06/16/2025 9:00 AM EDT [facility] [address] [place] [address] Sigifredo Borden, PT PT OASIS START OF CARE (SOC) 06/16/2025 Plan of Care Documentation [facility] [address] [place] [address] 06/15/2025 7:35 AM EDT Anesthesia Event OR Admitting Dept - Virtual Department [address] [place] [id number] Jami Diana MD 06/15/2025 7:30 AM EDT - 06/15/2025 10:23 AM EDT Surgery OR Admitting Dept - Virtual Department [address] [place] [address] Teja Daley MD ARTHROPLASTY TOTAL KNEE 06/15/2025 6:03 AM EDT - 06/15/2025 2:35 PM EDT Hospital Encounter OR Admitting Dept - Virtual Department [address] [place] [address] Teja Daley MD Discharge Disposition: Home or Self Care 06/15/2025 Procedure Pass OR Admitting Dept - Virtual Department [address] [place] [address] 06/14/2025 8:00 AM EDT Pre-Admission Testing Pre Procedure Evaluation [address] [place] [address] Teja Daley MD 05/20/2025 10:03 AM EDT - 05/20/2025 11:59 PM EDT Hospital Encounter [address] [address] Siomara Vidal PA-C Discharge Disposition: Home or Self Care 05/20/2025 10:00 AM EDT Office Visit [facility] [address] [place] [address] Siomara Vidal PA-C Primary localized osteoarthritis of right knee (Primary Dx); Pre-op exam 05/20/2025 Orders Only [facility] [address] [place] [id number] Homehealth, Interface ProviderMD from Last 3 Months [...] F) 07/09/2025 10:13 AM EDT Respiratory Rate 16 06/25/2025 11:14 AM EDT Oxygen Saturation 97% 07/09/2025 10:13 AM EDT Inhaled Oxygen Concentration - - Weight 95.7 kg (211 lb) 06/03/2025 1:08 PM EDT Height 172.7 cm (5' 8 ) 06/03/2025 1:08 PM EDT Body Mass Index 32.08 06/03/2025 1:08 PM EDT Plan of Treatment Upcoming Encounters Date Type Department Care Team (Late st Contact Info) Description 07/15/2025 2:00 PM EDT Office Visit [address] [address] Siomara Vidal PA-C 4 [facility] Orthoped[facility] Sports [facility], [place], [place] [phone] Saniya Dominguez, PT [address] [place] [address] 07/19/2025 1:15 PM EST Office Visit [address] [address] Siomara Vidal PA-C 4 [facility], [place] [address] Shyla Rodriguez PTA [address] [place] [address] 07/23/2025 11:45 AM EST Office Visit [address] [address] Siomara Vidal PA-C 4 [facility], [place], [place] [phone] Shyla Rodriguez PTA [address] [place] [address] 07/27/2025 10:45 AM EST Office Visit [facility] [address] [place], [place] [phone] Siomara Vidal PA-C 4 [facility] Sports [place], [place] [phone] Saniya Dominguez, PT [address] [place], [place] [phone] 07/29/2025 10:00 AM EST Office Visit [facility] [address] [place] [phone] Teja Daley MD [address] [place] [address] Orthopedics Sports [place], [place] [phone] 07/30/2025 11:45 AM EST Office Visit [address] [phone] Siomara Vidal PA-C 4 [facility] Orthopedics [place], [place] [phone] Shyla Rodriguez, SENIOR BILLING CONSULTANT [address] [place], [place] [phone] 08/03/2025 10:45 AM EST Office Visit [address] [phone] Siomara Vidal PA-C 4 [facility] [place], [place] [phone] Saniya Dominguez, PT [address] [place], [place] [phone] 08/06/2025 11:45 AM EST Office Visit [address] [address] Siomara Vidal PA-C 4 [facility] [place] [facility], [place], [place] [phone] Shyla Rodriguez, SENIOR BILLING CONSULTANT [address] [place] [address] 08/09/2025 11:15 AM EST Office Visit [address] [address] Siomara Vidal PA-C 4 [facility], [place], [place] [phone] Saniya Dominguez, PT [address] [place] [address] 08/11/2025 11:15 AM EST Office Visit [address] [address] Siomara Vidal PA-C 4 [facility], [place], [place] [phone] Saniya Dominguez, PT [address] [place] [address] 08/16/2025 11:45 AM EST Office Visit [address] [phone] Siomara Vidal PA-C 4 [facility], [place], [place] [phone] Shyla Rodriguez, SENIOR BILLING CONSULTANT [address] [place] [address] [email or web address] 08/19/2025 10:45 AM EST Office Visit [facility] [address] [place] [address] Siomara Vidal PA-C [address] [place] [address] Orthopedics & Sports Medicine, [facility] [place] [address] [email or web address] Saniya Dominguez, PT [address] [place] [address] [email or web address] Health Maintenance Due Date Last Done Comments LIPID PANEL 1954 DEPRESSION SCREENING 1966 HEPATITIS C SCREENING 02/08/1972 COLOGUARD 1999 COLONOSCOPY 1999 COLORECTAL CANCER SCREENING 1999 FIT TEST 1999 FOBT 1999 SIGMOIDOSCOPY 1999 VIRTUAL COLONOSCOPY 1999 ZOSTER VACCINES (3 of 3) 08/18/2018 06/23/2018, 06/16 OSTEOPOROSIS SCREENING INITIAL (ONE-TIME) 2019 MAMMOGRAM 03/14/2020 03/14/2018 INFLUENZA VACCINE (#1) 2025 , 06/12/2023, 07/10/2022, Additional history exists COVID-19 VACCINE (2024- season) 2025 07/01/2024, 06/12/2023, 08/22/2022, Additional history exists BLOOD PRESSURE 01/07/2026 07/09/2025 CREATININE LEVEL 02/02/2026 02/02/2025 POTASSIUM LEVEL 02/02/2026 02/02/2025 RSV VACCINE (1 - 1-dose 75+ series) 2029 Adult Td,Tdap Booster 08/25/2034 08/25/2024 PNEUMOCOCCAL VACCINES (50+ years) Completed 06/11/2022, 06/07/2021 SMOKING STATUS SCREENING (Once After 26 Yrs) Completed 06/14/2025 HEPATITIS A VACCINES Aged Out No long [...] this topic Medical Devices Implanted Type Area Custom Designer Device Identifier Shelf Expiration Date Model / Serial / Lot Prosthetic Joint Prosthetic Joint Left: Knee Knee Implant Component Size 7 Femoral Persona [place] [employer] Cruciate Retaining Narrow Right - [id number] Implanted:Qty: 1 on 06/15/2025 by Teja Daley MD at [facility] STANDARD Right: Knee VIGNESH BIOMET [id number] 1 02/21/2034 [id number] / / [id number] Knee Implant 5deg Component Tibial Persona Titanium Stemmed Cemented Rt Size E - [id number] Implanted:Qty: 1 on 06/15/2025 by Teja Daley MD at [facility] Right: Knee VIGNESH BIOMET [id number] 1 02/24/2035 [id number] / / [id number] Knee Patella 35mm Rachel Persona All Polyethylene Cemented Conventional - [id number] Implanted:Qty: 1 on 06/15/2025 by Teja Daley MD at [facility] Right: Patella VIGNESH BIOMET [id number] 1 12/08/2029 [id number] / / [id number] Cement Bone 1x40 Standard - [id number] Implanted:Qty: 2 on 06/15/2025 by Teja Daley MD at [facility] Right: Knee VIGNESH BIOMET [id number] 10/16/2027 [id number] / / [id number] Knee Implant 13mm Component Articular Surface Persona Polyethylene Vivacite E Cruciate Retaining Fixed Rt 6 7 Ef - [id number] Implanted:Qty: 1 on 06/15/2025 by Teja Daley MD at [facility] Right: Knee VIGNESH BIOMET [id number] 1 03/13/2027 [id number] / / [id number] Procedures Procedure Name Priority Date/Time Associated Diagnosis Comments XR KNEE 3 VIEW (RIGHT) Routine 06/29/2025 10:06 AM EDT Status post total right knee replacement XR KNEE 1-2 VIEWS (RIGHT) Routine 06/15/2025 12:48 PM EDT POCT GLUCOSE Routine 06/15/2025 10:16 AM EDT WA TOTAL KNEE ARTHROPLASTY 06/15/2025 7:35 AM EDT Primary localized osteoarthritis of right knee Special Needs Persona [facility] ANES SPINAL Routine 06/15/2025 7:35 AM EDT [place] ANESTHESIA PERIPHERAL BLOCK PLACEHOLDER Routine 06/15/2025 7:25 AM EDT POCT GLUCOSE Routine 06/15/2025 6:12 AM EDT XR KNEE 4 OR MORE VIEWS (RIGHT) [...] to Health Maintenance Results * XR KNEE 3 VIEW (RIGHT) (06/29/2025 10:06 AM EDT) Narrative SYSTEMGENERATED, DOCUMENTATION - 06/29/2025 10:06 AM EDT This image report has been auto-finalized and has not been read by a Radiologist. Interpretation has been included in the provider encounter note for this date of service. us Siomraa Vidal PA-C IMG XR LOWER EXTREMITY F inal Result * XR KNEE 1-2 VIEWS (RIGHT) (06/15/2025 12:48 PM EDT) Anatomical Region Laterality Modality Knee Right Computed Radiogr aphy 06/15/2025 12:5 1 PM EDT Impressions 06/15/2025 12:52 PM EDT New total knee arthroplasty. Narrative 06/15/2025 12:52 PM EDT XR KNEE 1-2 VIEWS (RIGHT) Referring clinician's provided indication for this examination in [facility]: Knee replacement, asymptomatic, follow up COMPARISON: XR KNEE 4 OR MORE VIEWS (RIGHT) FINDINGS: New total knee arthroplasty with postoperative soft tissue air and a joint effusion. Hardware is intact. No periprosthetic fracture. Procedure Note Devika Robles MD - 06/15/2025 XR KNEE 1-2 VIEWS (RIGHT) Referring clinician's provided indication for this examination in [facility]:Knee replacement, asymptomatic, follow up COMPARISON: XR KNEE 4 OR MORE VIEWS (RIGHT) FINDINGS: New total knee arthroplasty with postoperative soft tissue air and a jointeffusion. Hardware is intact. No periprosthetic fracture. IMPRESSION: New total knee arthroplasty. us Braden Gutiérrez PA-C IMG XR LOWER EXTREMITY Makenna l Result * POCT Glucose (06/15/2025 10:16 AM EDT) Only the most recent of2 resultswithin the time period is included. Glucose, POCT 98 70 - 100 mg/dL [facility] 06/15/2025 10:1 6 AM EDT 06/15/2025 10:17 AM EDT us Teja Daley MD POINT OF CARE TEST ORDERABLES Final Result [address] [address] * Spinal (06/15/2025 7:35 AM EDT) Sigifredo Calabrese CRNA - 06/15/2025 7:35 AM EDT Sigifredo Macias CRNA 06/15/2025 10:57 AM Spinal Placement Procedure Note: Start time: 06/15/2025 7:35 AM Performed by: fellow/resident/FIRST RESPONDER Anesthesiologist: Jami Diana MD Fellow/Resident/FIRST RESPONDER: Sigifredo Macias CRNA [place] Protocol performed: consent obtained, patient identified with 2 identifiers, correct procedure verified, correct site and laterality confirmed, verified equipment, coagulation status reviewed and implant history reviewed. Procedure details: Patient position: sitting Prep: chloraprep Approach: midline Location: L3-4 Needle: Needle type: Quincke Needle gauge: 22 Needle length: standard CSF was aspirated Outcome: Blood aspirated? no Paresthesia: no us Jami Diana MD [place] ANESTHESIA Final Result * [place] ANESTHESIA PERIPHERAL BLOCK PLACEHOLDER (06/15/2025 7:25 AM EDT) Sigifredo Calabrese CRNA - 06/15/2025 7:25 AM EDT Sigifredo Macias CRNA 06/15/2025 10:57 AM Peripheral Block Placement Procedure Note: Start Time: 06/15/2025 7:25 AM Stop Time:06/15/2025 7:30 AM Reason for block: surgeon request and post op pain managment Block performed by: resident/FIRST RESPONDER Fellow/Resident/FIRST RESPONDER: Sigifredo Macias CRNA [place] Protocol Performed: consent obtained, patient identified with 2 identifiers, correct procedure verified, correct site and laterality confirmed, verified equipment, coagulation status reviewed and implant history reviewed. Procedure Details: ASA monitors applied during procedure and vitals signs recorded in nursing flowsheet during procedure. Block type: single shot Laterality: right Block location: lower extremity and saphenous nerve-adductor canal Patient position: supine Prep: chloraprep Image guidance: ultrasound guidance Ultrasound image: not saved Needle visualization: good Nerve visualization: good Block Technique Block technique: ultrasound guided non-stimulating needle used Needle gauge: 22 Injection assessment:incremental injection, negative aspiration for heme and no paresthesia on injection Paresthesia: none Needle length: 10cm Post Block Placement Assessment Complications Observed: No us Jami Diana MD [place] ANESTHESIA Final Result * XR KNEE 4 OR MORE VIEWS (RIGHT) (05/20/2025 10:22 AM EDT) Narrative SYSTEMGENERATED, DOCUMENTATION - 05/20/2025 10:22 AM EDT This image report has been auto-finalized and has not been read by a Radiologist. Interpretation has been included in the provider encounter note for this date of service. Siomara Vidal PA-C IMG XR LOWER EXTREMITY F inal Result * Staphylococcus aureus (MRSA/MSSA) PCR, Preoperative (05/20/2025 10:03 AM EDT) Pathologist [facility] [place] MRSA PCR SCREEN Negative Negative [facility] Staph Aureus PCR Screen Negative Negative [facility] Comment:The Xpert MRSA Assay is intended to aid in the prevention and control of MRSA infections in healthcare settings. The assay is not intended to diagnose nor to guide or monitor treatment for MRSA infections. Other ([place]) 05/20/2025 10: 03 AM EDT 05/20/2025 4:06 PM EDT Siomara Vidal PA-C NON CULTURE MICROBIOLOGY Final Result [address] [address] * (ABNORMAL) Basic metabolic panel (02/02/2025 11:26 AM EDT) Pathologist [facility] [place] SODIUM 138 133 - 146 mmol/L [facility] CHLORIDE 103 96 - 108 mmol/L [facility] POTASSIUM 4.1 3.3 - 5.1 mmol/L [facility] CO2 24 21 - 35 mmol/L [facility] BUN 16 6 - 19 mg/dL [facility] CREATININE 0.70 0.5 - 1.5 mg/dL [facility] GLUCOSE 107(H) 70 - 99 mg/dL [facility] CALCIUM 9.1 8.4 - 10.3 mg/dL [facility] EGFR 93 >59 mL/min/1.7 3m2 [facility] Comment:Estimated glomerular filtration rate calculated using the CKD-EPI refit equation. ANION GAP 15 10 - 20 mmol/L [facility] Blood 02/02/2025 11:2 6 AM EDT 02/02/2025 11:28 AM EDT us Teja Daley MD LAB BLOOD ORDERABLES Final Re sult [address] [address] * BI MAMMOGRAM SCREENING WITH TOMOSYNTHESIS WITH CAD (BILATERAL) (03/14/2018 8:16 AM EDT) Anatomical Region Laterality Modality Breast Left, Breast Right, Breast Bilateral Bila teral Mammography 03/14/2018 8:07 AM EDT Impressions 03/14/2018 9:07 AM EDT No mammographic evidence of malignancy. Recommend routine annual surveillance. BI-RADS CATEGORY: 2 - Benign finding. DENSITY: There are scattered fibroglandular densities. POS - [id number] Narrative 03/14/2018 9:07 AM EDT 63-year-old female [...] There are scattered fibroglandular densities. POS - [id number] [facility] Patrice Hernandez MD IMG MG EXAMS Final R esult from Last 3 Months or Most Recently Relevant to Health Maintenance Insurance [employer] SUPPLEMENT MEDICARE PART A & B [employer] original products SUPPLEMENT MEDICARE PART A & B [employer] MEDEX SUPPLEMENT MEDICARE PART A & B [employer] MEDEX SUPPLEMENT MEDICARE PART A & B [facility] MEDEX SUPPLEMENT MEDICARE PART A & B [employer] MEDEX SUPPLEMENT MEDICARE PART A & B [employer] MEDEX SUPPLEMENT MEDICARE PART A & B [employer] MEDEX SUPPLEMENT MEDICARE PART A & B [employer] MEDEX SUPPLEMENT MEDICARE PART A & B Care Teams Electrical Maintenance Mechanic Relationship Specialty Start Date End Date Shanell Maddox MD [address] [place] [address] [place] [address] PCP - General Internal Medicine 01/20/25 Additional Source Comments The information contained in this document represents components of the legal health record. It is not the complete legal health record.[facility]
--- OUTSIDE RECORDS SUMMARY | 2025-07-14 14:27 | XMS_ITS | Encounter Summary ---
Author Organization [facility] Address [address] [place] [address] [place] [address] Phone Care Team Providers Care Assistant Attorney General Name Role Phone Shanell Maddox MD Primary Care Provider + [phone] Encounter Details Date Type Department Care Team (Late st Contact Info) Description 06/15/2025 Procedure Pass OR Admitting Dept - Virtual Department [address] [place] [address] Social History Tobacco Use Types Packs/Day Years Used Date Smoking Tobacco: Never Smokeless Tobacco: Never Alcohol Use Standard Drinks/Week Comments Yes 2 (1 standard drink = 0.6 oz pur e alcohol) Home Health Assessment: Transportation Answer Date Recorded Lack of Transportation (Medical) No 06/16/2025 Lack of Transportation (Non-Medical) No 06/16/2025 Patient Unable or Declines to Respond No 06/16/2025 Education Answer Date Recorded Are you interested [...] Description 07/15/2025 2:00 PM EDT Office Visit [place] [address] [address] Siomara Vidal PA-C 4 [facility], [place], [place] [phone] Saniya Dominguez, PT 10 [place] [address] 07/19/2025 1:15 PM EST Office Visit [address] [address] Siomara Vidal PA-C 4 [facility], [place], [place] [phone] Shyla Rodriguez, SANIA 10 [place] [address] 07/23/2025 11:45 AM EST Office Visit [address] [address] Siomara Vidal PA-C 4 [facility], [place], [place] [phone] Shyla Rodriguez STOCK RANCH SUPERVISOR 10 [place] [address] 07/27/2025 10:45 AM EST Office Visit [address] [address] Siomara Vidal PA-C 4 [facility], [place], [place] [phone] Saniya Dominguez, PT 10 [place] [address] 07/29/2025 10:00 AM EST Office Visit [facility] [address] [place] [address] Teja Daley MD 4 [facility] [place] [address] 07/30/2025 11:45 AM EST Office Visit [address] [address] Siomara Vidal PA-C 4 [facility] [place] [address] Shyla Rodriguez PTA 10 [place] [address] [email or web address] 08/03/2025 10:45 AM EST Office Visit [address] [address] Siomara Vidal PA-C [address] [place] [address] Orthopedics [facility] [place], [place] [phone] Saniya Dominguez, PT 10 [place] [address] 08/06/2025 11:45 AM EST Office Visit [address] [phone] Siomara Vidal PA-C 4 [facility] [place], [place] 8861788 Shyla Rodriguez STOCK RANCH SUPERVISOR 10 [place] [address] [email or web address] 08/09/2025 11:15 AM EST Office Visit [address] [address] Siomara Vidal PA-C 4 [facility], [place], [place] 2703488 [email or web address] Saniya Dominguez, PT 10 [place] [address] 08/11/2025 11:15 AM EST Office Visit [address] [address] Siomara Vidal PA-C 4 [facility], [place] [address] [email or web address] Saniya Dominguez, PT 10 [place] [address] [email or web address] 08/16/2025 11:45 AM EST Office Visit [address] [address] Siomara Vidal PA-C 4 [facility], [place], [place] [phone] Shyla Rodriguez STOCK RANCH SUPERVISOR 10 [place] [address] 08/19/2025 10:45 AM EST Office Visit [address] [address] Siomara Vidal PA-C 4 [facility], [place], [place] 7888088 Saniya Dominguez, PT [address] [place] [address] [email or web address] documented as of this encounter Visit Diagnoses Not on filedocumented in this encounter Care Teams Assistant Attorney General Relationship Specialty Start Date End Date Shanell Maddox MD [address] [place] [address] [place] [address] PCP - General Internal Medicine 01/20/25 documented as of this encounter Additional Source Comments The information contained in this document represents components of the legal health record. It is not the complete legal health record.[facility]
--- OUTSIDE RECORDS SUMMARY | 2025-07-14 14:27 | XMS_ITS | Encounter Summary ---
Author Organization [facility] Address [address] [place] [address] Phone Care Team Providers Care Fruit And Vegetable Packer Name Role Phone Pedro Hernandez MD Unavailable [phone] Berna Carroll MD Unavailable [phone] Pedro Hernandez MD Primary Care Provider Shanell Maddox MD Primary Care Provider + [phone] Reason for Referral * Physical Therapy (Routine) - Closed Specialty Diagnoses / Procedures Referred By Contac t Referred To Contact Physical Therapy Diagnoses L TKA System, Provider Not In, [facility] [id number] [place] [address] Phone: tel: Referral ID Status Reason Start Date Expiration Date Visits Re quested Visits Authorized [id number] Closed 12/01/2018 07/16/2019 25 25 Encounter Details Date Type Department Care Team (Latest Contact Info) Description 12/01/2018 Transcribe Orders [facility] 8 [place] [address] Teja Daley MD [address] [place] [address] [facility] [place] [address] [email or web address] Encounter for rehabilitation (Primary Dx) Social [...] 07/15/2025 2:00 PM EDT Office Visit [address] [address] Siomara Vidal PA-C 4 [facility] Medicine, [place] [address] [email or web address] Saniya Dominguez, PT 10 [place] [address] 07/19/2025 1:15 PM EST Office Visit [address] [address] Siomara Vidal PA-C 4 [facility] Medicine, [place] [address] [email or web address] Shyla Rodriguez PTA 10 [place] [address] 07/23/2025 11:45 AM EST Office Visit [address] [address] Siomara Vidal PA-C 4 [facility] Medicine, [place] [address] [email or web address] Shyla Rodriguez PTA 10 [place] [address] [email or web address] 07/27/2025 10:45 AM EST Office Visit [address] [address] Siomara Vidal PA-C [address] [place] [address] Orthopedics & Sports [facility], [place], [place] 9[address]1988 Saniya Dominguez, PT 10 [place] [address] 07/29/2025 10:00 AM EST Office Visit [facility] Medicine [address] [place] [address] Teja Daley MD [address] [place] [address] Orthopedics [facility], [place], [place] 9[address]1988 07/30/2025 11:45 AM EST Office Visit [address] [address] Siomara Vidal PA-C 4 [facility], [place], [place] [phone] Shyla Rodriguez PTA 10 [place], [place] 5231373 08/03/2025 10:45 AM EST Office Visit [address] 0897473 Siomara Vidal PA-C [address] [place] [address] Orthopedics Sports [facility], [place], [place] 8752688 Saniya Dominguez, PT 10 [place], [place] 4446173 08/06/2025 11:45 AM EST Office Visit [address] [phone] Siomara Vidal PA-C 4 [facility] [place], [place] 4807788 [email or web address] Shyla Rodriguez, BREADING MACHINE TENDER 10 [place] [address] 08/09/2025 11:15 AM EST Office Visit [address] 1720773 Siomara Vidal PA-C 4 [facility] [place], [place] 0883188 [email or web address] Saniya Dominguez, PT 10 [place] [address] 08/11/2025 11:15 AM EST Office Visit [address] [address] Siomara Vidal PA-C 4 [facility], [place], [place] 9694288 Saniya Dominguez, PT 10 [place] [address] 08/16/2025 11:45 AM EST Office Visit [address] [address] Siomara Vidal PA-C 4 [facility], [place], [place] 7201988 Shyla Rodriguez, BREADING MACHINE TENDER 10 [place] [address] 08/19/2025 10:45 AM EST Office Visit [address] [place] [address] Siomara Vidal PA-C 4 [facility] [place] [place] [address] Saniya Dominguez, PT 10 [place] [address] [email or web address] Scheduled Referrals Name Type Priority Associated Diagnoses Orde r Schedule Ambulatory referral to [facility] Physical Therapy Outpatient Referral Routine Encounter for rehabilitation Ordered: 12/01/2018 documented as of this encounter Visit Diagnoses Diagnosis Encounter for rehabilitation- Primary documented in this encounter Care Teams Fruit And Vegetable Packer Relationship Specialty Start Date End Date Pedro Hernandez MD [address] [place] [address] [place] [address] PCP - General Internal Medicine 01/31/18 01/19/25 Shanell Maddox MD [address] [place] [address] [place] [address] PCP - General Internal Medicine 01/20/25 Pedro Hernandez MD [address] [place] [address] [place] [address] Historical LMR Provider 07/06/17 2 Berna Carroll MD [address] [place] [address] Historical LMR Provider 07/06/17 2 documented as of this encounter Additional Source Comments The information contained in this document represents components of the legal health record. It is not the complete legal health record.[facility]
--- OUTSIDE RECORDS SUMMARY | 2025-07-14 14:27 | XMS_ITS | Encounter Summary ---
Author Organization [facility] Address [address] [place] [address] [place] [address] Phone Care Team Providers Care Lyric Writer Name Role Phone Shanell Maddox MD Primary Care Provider + [phone] Encounter Details Date Type Department Care Team (Latest Contact Info) Description 07/12/2025 Plan of Care Documentation [facility] [address] [place] [address] Social History Tobacco Use Types Packs/Day Years [...] on file documented as of this encounter Miscellaneous Notes * Outpatient Rehab Plan of Care - Saniya Dominguez, PT - 07/12/2025 3:49 PM EDT [facility] FINANCING ADMINISTRATION PLAN OF TREATMENT FOR OUTPATIENT REHABILITATION (Complete for Initial Claims Only) 1. PROVIDER NAME: Saniya Dominguez, PT 2. 3. ONSET DATE: 06/15/25 4. SOC DATE: 07/12/25 5. PRIMARY DIAGNOSIS: 1. Acute pain of right knee 2. Hx of total knee replacement, right 6. VISITS FROM SOC: 1 7. PLAN OF TREATMENT FUNCTIONAL GOAL [X] indicates goal is met [ ] [...] per week for 6-10 weeks. [ ] post op protocol [X ] Therapeutic Exercise 85889 Rom [X ] PROM [ X] AAROM [X ] AROM [X ] Strength Stability Flexibility Static, Dynamic PNF [X ] Balance [ X] Manual Therapy 18815 [ X] Edema Management [ ] Taping methods [ X] Soft tissue mobilization [ ] Joint mobilization [X ] Neuromuscular re-education 87731 [X ] firm surface [ X] ankle strategies [ X] hip strategies [ X] foam [X ] Wobble board [X ] Bosu [ X] Therapeutic Activities 99167 [ ] Bed mobility [X ] Transfers [ X] Stairs [X ] Lifting [X ] Carrying [X ] Squatting [ ] Self-care /home management / ADLs 53611 [ X] Gait Training 14118 [X ] Even terrain [X ] Uneven terrain [X ] Stairs [X ] Ramps/incline/decline [X ] Curb steps [ ] Estim attended 84980 [ ] NEMS / [ ] TENS [ ] Estim unattended 87751 [ ] NEMS / [ ] TENS [ ] Iontophoresis 43352 [ ] Orthotic evaluation 1st encounter [ ] Orthotic subsequent 19342 fit / training [ X] Re-evaluation 80957 [ ] Phys Perform Testing 93261 8. SIGNATURE (professional establishing POC including prof. Designation): Saniya Dominguez, PT 9. INITIAL ASSESSMENT (History, medical complications, level of function at start of care. Reason for referral) Please refer to initial assessment note for full documentation. 10. FUNCTIONAL LEVEL (End of Billing Period) PROGRESS REPORT: Continue Services Please refer to progress notes and Plan of Care for documentation of patient progress. documented in this encounter Plan of Treatment Upcoming Encounters Date Type Department Care Team (Late st Contact Info) Description 07/15/2025 2:00 PM EDT Office Visit [address] [address] Siomara Vidal PA-C 4 [facility] [place] [address] [email or web address] Saniya Dominguez, PT 10 [place] [address] 07/19/2025 1:15 PM EST Office Visit [address] [address] Siomara Vidal PA-C [address] [place] [address] [facility] [place] [address] [email or web address] Shyla Rodriguez PTA 10 [place] [address] 07/23/2025 11:45 AM EST Office Visit [address] [address] Siomara Vidal PA-C 4 [facility], [place], [place] 0485688 Shyla Rodriguez, GENERAL SUPERVISOR 10 [place] [address] 07/27/2025 10:45 AM EST Office Visit [address] 1611673 Siomara Vidal PA-C 4 [facility] Orthopedics Sports [facility], [place], [place] 1953288 Saniya Dominguez, PT 10 [place], [place] 5446773 07/29/2025 10:00 AM EST Office Visit [facility] Orthopedics & Sports Medicine [address] [place] [address] Teja Daley MD 4 [facility] Sports [facility], [place] [address] 07/30/2025 11:45 AM EST Office Visit [address] 7579673 Siomara Vidal PA-C 4 [facility] Sports [facility], [place], [place] 2220588 Shyla Rodriguez, GENERAL SUPERVISOR 10 [place], [place] 5476873 08/03/2025 10:45 AM EST Office Visit [address] [phone] Siomara Vidal PA-C 4 [facility] Sports [facility], [facility]. [place], [place] 4979388 [email or web address] Saniya Dominguez, PT 10 [place] [address] 08/06/2025 11:45 AM EST Office Visit [address] [address] Siomara Vidal PA-C 4 [facility], [place], [place] 1122388 Shyla Rodriguez, GENERAL SUPERVISOR 10 [place] [address] 08/09/2025 11:15 AM EST Office Visit [address] [address] Siomara Vidal PA-C 4 [facility], [place], [place] 0120788 Saniya Dominguez, PT 10 [place] [address] 08/11/2025 11:15 AM EST Office Visit [address] [address] Siomara Vidal PA-C 4 [facility], [place], [place] 9488388 Saniya Dominguez, PT 10 [place] [address] 08/16/2025 11:45 AM EST Office Visit [address] [address] Siomara Vidal PA-C 4 [facility] Sports [facility], [place] [address] [email or web address] Shyla Rodriguez GENERAL SUPERVISOR 10 [place] [address] 08/19/2025 10:45 AM EST Office Visit [address] [address] Siomara Vidal PA-C 4 [facility] Sports [facility], [place], [place] 8540488 [email or web address] Saniya Dominguez, PT 10 [place] [address] documented as of this encounter Visit Diagnoses Not on filedocumented in this encounter Care Teams Lyric Writer Relationship Specialty Start Date End Date Shanell Maddox MD [address] [place] [address] [place] [address] PCP - General Internal Medicine 01/20/25 documented as of this encounter Additional Source Comments The information contained in this document represents components of the legal health record. It is not the complete legal health record.[facility]
--- OUTSIDE RECORDS SUMMARY | 2025-07-14 14:27 | XMS_ITS | Clinical Summary ---
Author Organization [address] [place] [address] Address [address] [place] [address] Phone Care Team Providers Care Hole Digger Operator Name Role Phone Pedro Hernandez MD Primary Care Provider [phone] Allergies No known active allergies Active Problems [...] due to animal dander 4 Arthropathic psoriasis ([facility] V24, [facility] V28 ) 08/07/2024 Essential hypertension 08/07/2024 Immunizations Immunization Administration Dates Next Due Moderna SARS-CoV-2 COVID-19, [...] Health Maintenance Due Date Last Done Comments Colorectal Cancer Screening: Colonoscopy 1954 DTaP,Tdap,and Td Vaccines (1 - Tdap) 1973 Zoster Vaccines (3 of 3) 08/18/2018 06/23/2018, 06/16 Breast Cancer Screening 03/14/2020 03/14/2018 Cholesterol Screening (Lipid Panel) 06/28/2024 Falls Risk Assessment 06/28/2024 Hepatitis C [...] age to complete this topic Insurance MEDICARE [facility] Care Teams Hole Digger Operator Relationship Specialty Start Date End Date Pedro Hernandez MD [address] [place] [address] [place] PCP - General 06/10/24
--- OUTSIDE RECORDS SUMMARY | 2025-07-14 14:27 | XMS_ITS | Encounter Summary ---
Author Organization [facility] Address [address] [facility] [address] [place] [address] Phone Care Team Providers Care Hospitalist Program Director Name Role Phone Shanell Maddox MD Primary Care Provider + [phone] Encounter Details Date Type Department Care Team ([facility] st Contact Info) Description 06/21/2025 Orders Only [facility] Orthopedics & Sports Medicine [address] [place] [address] Siomara Vidal PA-C [address] [place] [address] Orthopedics & Sports Medicine, [facility] [place] [address] [email or web address] Social History Tobacco Use Types Packs/Day Years [...] Description 07/15/2025 2:00 PM EDT Office Visit [address] [address] Siomara Vidal PA-C 4 [facility] Orthopedics Sports [facility], [place] [address] [email or web address] Saniya Dominguez, PT 10 [place] [address] [email or web address] 07/19/2025 1:15 PM EST Office Visit [address] [address] Siomara Vidal PA-C 4 [facility] Sports [facility], [place] [address] [email or web address] Shyal Rodriguez PTA 10 [place] [address] [email or web address] 07/23/2025 11:45 AM EST Office Visit [address] [address] Siomara Vidal PA-C 4 [facility], [facility] [place] [address] [email or web address] Shyla Rodriguez PTA 10 [place] [address] [email or web address] 07/27/2025 10:45 AM EST Office Visit [address] [address] Siomara Vidal PA-C 4 [facility] Sports Medicine, [place] [address] [email or web address] Saniya Dominguez, PT 10 [place] [address] 07/29/2025 10:00 AM EST Office Visit [facility] Orth[facility]ics & Sports Medicine [address] [place] [address] Teja Daley MD 4 [facility] Orthopedics Sports [facility], [place] [address] 07/30/2025 11:45 AM EST Office Visit [address] [address] Siomara Vidal PA-C 4 [facility] Orthopedics Sports [facility], [place] [address] [email or web address] Shyla Rodriguez, SERVICE WORKER HELPER 10 [place] [address] 08/03/2025 10:45 AM EST Office Visit [address] 1224073 Siomara Vidal PA-C [address] [place] [address] Orthopedics Sports [facility], [place] [address] Saniya Dominguez, PT 10 [place], [place] 1511373 08/06/2025 11:45 AM EST Office Visit [address] [address] Siomara Vidal PA-C [address] [place] [address] Orthopedics Sports [facility], [place], [place] 870[address]88 [email or web address] Shyla Rodriguez, SERVICE WORKER HELPER 10 [place] [address] [email or web address] 08/09/2025 11:15 AM EST Office Visit [address] [address] Siomara Vidal PA-C 4 [facility] Orthopedics Sports [facility], [place], [place] 3380688 Saniya Dominguez, PT 10 [place] [address] 08/11/2025 11:15 AM EST Office Visit [address] [address] Siomara Vidal PA-C 4 [facility], [place], [place] 9432388 Saniya Dominguez, PT 10 [place] [address] 08/16/2025 11:45 AM EST Office Visit [address] [address] Siomara Vidal PA-C 4 [facility], [facility]. [place], [place] 3260788 Shyla Rodriguez, SERVICE WORKER HELPER 10 [place] [address] 08/19/2025 10:45 AM EST Office Visit [address] [address] Siomara Vidal PA-C 4 [facility] [place] [address] [email or web address] Saniya Dominguez, PT 10 [place] [address] [email or web address] documented as of this encounter Visit Diagnoses Not on filedocumented in this encounter Care Teams Hospitalist Program Director Relationship Specialty Start Date End Date Shanell Maddox MD [address] [place] [address] [place] [address] PCP - General Internal Medicine 01/20/25 documented as of this encounter Additional Source Comments The information contained in this document represents components of the legal health record. It is not the complete legal health record.[facility]
--- OUTSIDE RECORDS SUMMARY | 2025-07-14 14:28 | XMS_ITS | Patient Health Record ---
Author Organization [facility] Address [address] [place] [address] Care Team Providers Care Ruby On Rails Engineer Name Role Phone David (RETIRED) Pedro MIX Primary Care Provide r Unavailable Jamie Jarvis Unavailable [phone] Allergies No Known Allergies Reason For Referral No Information Medications Medication SIG (Take, Route, Fr equency, Duration) Notes Start Date End Date Status Lisinopril 2.5 MG Oral; Duration: 90 Active Fish Oil 500 MG 1 capsule Orally Twi ce a day; Duration: 30 day(s) Active Turmeric Active Vitamin C [...] Problem Status W/U Status Risk Notes Problem Screening for malignant neoplasm of colon (489952179) Encounter for screening for malignant neoplasm of colon (Z12.11) Active confirmed Problem Preprocedural examination (038561866113023) Preprocedural examination (Z01.818) Active confirmed Problem Diverticular disease of colon (678779934) Colon, diverticulosis (K57.30) Active confirmed Plan Of Treatment Future Test Test Name Order Date COLONOSCOPY 09/06/2021 Insurance Providers Payer Name Payer Address Payer Phone Subscriber Number Group Number Insured Name Patient Relationship to Insured Coverage Start Date Coverage End Date MEDICARE OF [place] [address] [place] [address] [id number] ANNA LORENZO Self - patient is the insured [employer] ATT[employer] CLAIMS [address] [place] [address] [id number] ANNA LORENZO Self - patient is the insured Medical (General) History Medical History History ICD Code Denies UT,DM,CVA,Lung disease,renal dise ase Hypertension Enviromental allergies Neg screening colonoscopy in 2009 except for a lipoma in the area of the hepatic flexure Surgical History Surgery Date(Month/Year) Knee replacement on the left 2018
== END 2025-07-14 11:21 | disposition home or self-care (01) ==
LOC: HO.HMGAL 11:20
PROVIDERS: PCP Internal Medicine; Visit Provider Registered Nurse Emergency
DX: J30.89 Other allergic rhinitis (principal)
CPT/HCPCS: 95117; 95165

== ENCOUNTER 2025-08-09 13:24 | Outpatient (AMB) | payer MEDICARE, SELFPAY ==
--- OUTSIDE RECORDS SUMMARY | 2025-08-06 11:45 | XMS_ITS | Encounter Summary ---
Author Organization [facility] Address [address] [place] [address] [place] [address] Phone Care Team Providers Care Lithographer Helper Name Role Phone Shanell Maddox MD Primary Care Provider + [phone] Reason for Visit * Physical Therapy (Routine) - Authorized Specialty Diagnoses / Procedures Referred By Koko bearden Referred To Contact Physical Therapy Diagnoses Primary localized osteoarthritis of right knee Pre-op exam Siomara Vidal PA-C 4 [facility], [place] [address] Phone: tel: fax: [email or web address] [facility] [address] [place] [address] Phone: tel: Referral ID Status Reason Start Date Expiration Date V isits Requested Visits Authorized [id number] Authorized 07/12/2025 05/20/2026 99 99 Encounter Details Date Type Department Care Team (Latest Contact Info) Description 08/06/2025 11:45 AM EST Office Visit [facility] [address] [place] [address] Siomara Vidal PA-C 4 [facility], [place], [place] [phone] [email or web address] Shyla Najera, SODIUM METHYLATE OPERATOR [address] [place], [place] [id number] [email or web address] Acute pain of right knee (Primary Dx) Social History Tobacco Use Types [...] as of this encounter Progress Notes * Michael Shyla, SODIUM METHYLATE OPERATOR - 08/06/2025 11:45 AM EST Subject Line: Treatment Note Physical Therapy Treatment Note Patient Name: Angy Phillips Date of : 1955 Referring MD: Siomara Vidal PA-C [address] [place] [address] Orthopedics & Sports Medicine, [place] [address] Evaluation Date: SOC Date: 07/12/25 Treatment Diagnosis: ICD-10-CM 1. Acute pain of right knee M25.561 Surgery: Right TKA Surgery Date: 06/15/2025 Surgeon Name/Practice: Dr. Daley Precautions/ Safety: None This patient has attended 7 visits since the onset Physical Therapy. SUBJECTIVE: She is hoping to get back to Agility training in September. She stays active walking the dogs for an hour most days. OBJECTIVE: Mobility Gait:no AD, mild hip drop on R noted STS: able to perform without UE support, mild off shift to L with eccentric Stairs: able to ascend and descend in reciprocal pattern with light UE support (reports at home shehas to sometimes go one step at a time) Glute bridge: good height, some cramping SLR: x5 on R no quad lag Range of Motion Knee Ext: R 0* Flex: R 120* Strength Hip Flex: L 5/5, R 4+/5 ER: B 5/5 -- R is a little sore IR: B 5/5 ABD: B 5/5 Ext: B 4+/5 Knee Ext: B 5/5 Flex: B 5/5 Outcome Measures: 30 sec STS: 13 no UE support, sore Treatment Interventions: See encounter report for minutes associated with each intervention. Recumbent bike no resistance x5 min R knee flexion at stairs x5 with 10 sec hold (115*) See above objective measures Prone R knee flexion x20 passive Prone quad stretch 30 sec x 3, 110 deg STM R quad Heel slides w/strap and slider disc x 10, 128 AROM slides x 10, 115 LAQ on R x15 Step up at first step of stairs with knee delivery truck driver heavy B x10 Lateral step up with contralateral hip abd x 10 ea November with 3 sec hold 2x10 Tandem balance B x30 sec Tandem balance on foam pad B 2x30 sec Tandem walk x 4 lengths in // bars Fitter Quad- all bands 2 x 10 B Home Exercise Program: Access Code: [email or web address] URL: [email or web address] Date: 08/03/2025 Prepared by: Saniya Exercises - Prone Quadriceps Stretch with Strap - 1 x daily - 7 x weekly - 3 sets - 10 reps - Seated Long Arc Quad - 1 x daily - 7 x weekly - 3 sets - 10 reps - Sit to Stand - 1 x daily - 7 x weekly - 3 sets - 10 reps - Runner's Step Up/Down - 1 x daily - 7 x weekly - 3 sets - 10 reps - Tandem Stance with Support - 1 x daily - 7 x weekly - 3 sets - 20-30 sec hold - Standing Marching - 1 x daily - 7 x weekly - 3 sets - 10 reps - 3 sec hold - Standing Knee Flexion Stretch on Step - 1 x daily - 7 x weekly - 2 sets - 10 reps Goals: [X] indicates goal is met [ ] indicates goal is still in progress Established 07/12/2025 In the next 4 weeks, Patient will achieve: [ X] Pt will be independent with HEP to demonstrate compliance with POC and independence in management of symptoms [ X] Pt will reach 0* of R knee extension [X ] Pt will reach >/= 115* of R knee flexion [X ] Pt will wean from AD for community ambulation Established 07/12/2025 In the next 8 weeks, Patient will achieve: [ X] Pt will reach >/= 120* of R knee flexion [ ] Pt will report ascending and descending stairs at home in reciprocal pattern [X ] Pt will complete >/= 12 STS in 30 sec without increase in symptoms [ ] Pt will be able to tolerate light jogging for dog agility showings Plan: Physical therapy 1-2 x per week for 6-10 weeks. [ ] post op protocol [X ] Therapeutic Exercise 79165 Rom [X ] PROM [ X] AAROM [X ] AROM [X ] Strength Stability Flexibility Static, Dynamic PNF [X ] Balance [ X] Manual Therapy 08357 [ X] Edema Management [ ] Taping methods [ X] Soft tissue mobilization [ ] Joint mobilization [X ] Neuromuscular re-education 70016 [X ] firm surface [ X] ankle strategies [ X] hip strategies [ X] foam [X ] Wobble board [X ] Bosu [ X] Therapeutic Activities 48544 [ ] Bed mobility [X ] Transfers [ X] Stairs [X ] Lifting [X ] Carrying [X ] Squatting [ ] Self-care /home management / ADLs 82780 [ X] Gait Training 95688 [X ] Even terrain [X ] Uneven terrain [X ] Stairs [X ] Ramps/incline/decline [X ] Curb steps [ ] Estim attended 10182 [ ] NEMS / [ ] TENS [ ] Estim unattended 27354 [ ] NEMS / [ ] TENS [ ] Iontophoresis 62125 [ ] Orthotic evaluation 1st encounter [ ] Orthotic subsequent 47311 fit / training [ X] Re-evaluation 02581 [ ] Phys Perform Testing 53068 ASSESSMENT: Pt tolerated session well. She is making strides towards goals. Will continue to focus on R knee flexion ROM and functional mobility including strength, balance and stair navigation. PLAN: Focus on R knee flexion ROM and functional mobility including strength, balance and stair navigation. Shyla Rodriguez PTA 441 documented in this encounter Plan of Treatment Upcoming Encounters Date Type Department Care Team (Late st Contact Info) Description 08/11/2025 11:15 AM EST Office Visit [address] [address] Siomara Vidal PA-C 4 [facility], [place] [address] [email or web address] Saniya Dominguez, PT [address] [place] [address] [email or web address] 08/16/2025 11:45 AM EST Office Visit [address] [address] Siomara Vidal PA-C 4 [facility], [place] [address] [email or web address] Shyla Rodriguez PTA [address] [place] [address] [email or web address] 08/19/2025 10:45 AM EST Office Visit [address] [address] Siomara Vidal PA-C 4 [facility], [place] [address] [email or web address] Saniya Dominguez, PT [address] [place] [address] [email or web address] documented as of this encounter Visit Diagnoses Diagnosis Acute pain of right knee- Primary documented in this encounter Care Teams Lithographer Helper Relationship Specialty Start Date End Date Shanell Maddox MD [address] [place] [address] [place] [address] PCP - General Internal Medicine 01/20/25 documented as of this encounter Additional Source Comments The information contained in this document represents components of the legal health record. It is not the complete legal health record.[facility]
--- OUTSIDE RECORDS SUMMARY | 2025-08-09 11:15 | XMS_ITS | Encounter Summary ---
Author Organization [facility] Address [address] [place] [address] Phone Care Team Providers Care Certified Medical Assistant Name Role Phone Shanell Maddox MD Primary Care Provider + [phone] Reason for Visit * Physical Therapy (Routine) - Authorized Specialty Diagnoses / Procedures Referred By Koko bearden Referred To Contact Physical Therapy Diagnoses Primary localized osteoarthritis of right knee Pre-op exam Siomara Vidal PA-C 4 [facility], [place] [address] Phone: tel: fax: [email or web address] [facility] [address] [place] [address] Phone: tel: Referral ID Status Reason Start Date Expiration Date V isits Requested Visits Authorized [id number] Authorized 07/12/2025 05/20/2026 99 99 Encounter Details Date Type Department Care Team (Late st Contact Info) Description 08/09/2025 11:15 AM EST Office Visit [facility] [address] [place] [address] Siomara Vidal PA-C 4 [facility], [place], [place] [phone] [email or web address] Saniya Dominguez, PT [address] [place], [place] [phone] [email or web address] Acute pain of right knee (Primary Dx); [...] Progress Notes * Saniya Dominguez, PT - 08/09/2025 11:15 AM EST Subject Line: Treatment Note Physical Therapy Treatment Note Patient Name: Angy Phillips Date of : 1955 Referring MD: Siomara Vidal PA-C [address] [place] [address] Orthopedics & Sports Medicine, [facility] [place] [address] Evaluation Date: SOC Date: 07/12/25 Treatment Diagnosis: ICD-10-CM 1. Acute pain of right knee M25.561 2. Hx of total knee replacement, right Z96.651 Surgery: Right TKA Surgery Date: 06/15/2025 Surgeon Name/Practice: Dr. Daley Precautions/ Safety: None This patient has attended 8 visits since the onset Physical Therapy. SUBJECTIVE: Pt reports her knee is feeling good. Pt repots she went to a dog show over the weekend. Noticed standing on the hard floors it was painful, but walking around was fine. Treatment Interventions: See encounter report for minutes associated with each intervention. 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 Lateral step up with contralateral hip abd x 10 ea Fitter Quad- all bands 2 x 10 B Standing knee flexion on R x20 Prone R knee flexion x20 passive Prone quad stretch 30 sec x 3, 120 deg AROM slides with glider on R x 15, 115 Heel slides w/strap and slider disc x15, 120 High knee march in // bars x3 laps Bosu step up with knee otr company truck driver in // bars B 2x10 Reverse bosu balance on // bars x2min -- UE support support as needed Tandem balance on foam plank B 2x30 sec Standing HS stretch at stairs B 2x30 sec Home Exercise Program: Access Code: [email or web address] URL: [email or web address] Date: 08/03/2025 Prepared by: Saniya Exercises - [...] weekly - 2 sets - 10 reps ASSESSMENT: Pt tolerates session well. Continues to hover knee flexion between 115-120*. Continue with knee flexion ROM and stair training in upcoming session. Try lateral step down next session. PLAN: Focus on R knee flexion ROM and functional mobility including strength, balance and stair navigation. Saniya Dominguez, PT [id number] documented in this encounter Plan of Treatment Upcoming Encounters Date Type Department Care Team (Late st Contact Info) Description 08/11/2025 11:15 AM EST Office Visit [facility] [address] [place] [address] Siomara Vidal PA-C 4 [facility], [place], [place] [phone] [email or web address] Saniya Dominguez, PT [address] [place], [place] [phone] 08/16/2025 11:45 AM EST Office Visit [address] [phone] Siomara Vidal PA-C 4 [facility], [place], [place] [phone] [email or web address] Shyla Rodriguez, STAIN APPLICATOR [address] [place], [place] [phone] 08/19/2025 10:45 AM EST Office Visit [address] [phone] Siomara Vidal PA-C [address] [place], [place] [phone] [email or web address] Saniya Dominguez, PT [address] [place] [address] documented as of this encounter Visit Diagnoses Diagnosis Acute pain of right knee- Primary Hx of total knee replacement, right documented in this encounter Care Teams Certified Medical Assistant Relationship Specialty Start Date End Date Shanell Maddox MD [address] [place] [address] [place] [address] PCP - General Internal Medicine 01/20/25 documented as of this encounter Additional Source Comments The information contained in this document represents components of the legal health record. It is not the complete legal health record.[facility]
--- OUTSIDE RECORDS SUMMARY | 2025-08-09 18:02 | XMS_ITS | Clinical Summary ---
Author Organization [address] [place] [address] Address [address] [place] [address] Phone Care Team Providers Care Project Development Manager Name Role Phone Pedro Hernandez MD Primary Care Provider [phone] Allergies No known active allergies Active Problems [...] due to animal dander 4 Arthropathic psoriasis ([facility] V24, [facility] V28 ) 08/07/2024 Essential hypertension [...] age to complete this topic Insurance MEDICARE [facility] Care Teams Project Development Manager Relationship Specialty Start Date End Date Pedro Hernandez MD [address] [place] [address] Dr [place] PCP - General 06/10/24
--- OUTSIDE RECORDS SUMMARY | 2025-08-09 18:02 | XMS_ITS | Encounter Summary ---
Author Organization [facility] Address [address] [place] [address] [place] [address] Phone Care Team Providers Care Email Campaign Manager Name Role Phone Shanell Maddox MD Primary Care Provider + [phone] Encounter Details Date Type Department Care Team (Late st Contact Info) Description 06/15/2025 Procedure Pass OR Admitting Dept - Virtual Department [address] [place] [address] Social History Tobacco Use Types Packs/Day Years [...] Description 08/11/2025 11:15 AM EST Office Visit [facility] [address] [address] Siomara Vidal PA-C 4 [facility], [place], [place] [phone] Saniya Dominguez, PT [address] [place], [place] [phone] 08/16/2025 11:45 AM EST Office Visit [address] [phone] Siomara Vidal PA-C 4 [facility], [place], [place] [phone] Shyla Rodriguez, MERCHANDISE TEAM MANAGER [address] [place], [place] [phone] 08/19/2025 10:45 AM EST Office Visit [address] [phone] Siomara Vidal PA-C 4 [facility], [place], [place] [phone] Saniya Dominguez, PT [address] [place] [address] documented as of this encounter Visit Diagnoses Not on filedocumented in this encounter Care Teams Email Campaign Manager Relationship Specialty Start Date End Date Shanell Maddox MD [address] [place] [address] [place] [address] PCP - General Internal Medicine 01/20/25 documented as of this encounter Additional Source Comments The information contained in this document represents components of the legal health record. It is not the complete legal health record.[facility]
--- OUTSIDE RECORDS SUMMARY | 2025-08-09 18:02 | XMS_ITS | Encounter Summary ---
Author Organization [facility] Address [address] [place] [address] [place] [address] Phone Care Team Providers Care Soa Architect Name Role Phone Pedro Hernandez MD Unavailable [phone] Berna Carroll MD Unavailable [phone] Pedro Hernandez MD Primary Care Provider Shanell Maddox MD Primary Care Provider [phone] Encounter Details Date Type Department Care Team (Late st Contact Info) Description 01/31/2018 Ancillary Orders Virtual Department [address] [place] [address] Pedro Hernandez MD [address] [place] [address] [place] [address] Breast screening Social History Tobacco Use Types [...] Description 08/11/2025 11:15 AM EST Office Visit [facility] [address] [place] [address] Siomara Vidal PA-C 4 [facility] [place] [address] Saniya Dominguez, PT [address] [place] [address] [email or web address] 08/16/2025 11:45 AM EST Office Visit [address] [address] Siomara Vidal PA-C 4 [facility], [place], [place] [phone] [email or web address] Saulosuleiman Shyla TECHNICAL OPERATOR [address] [place] [address] [email or web address] 08/19/2025 10:45 AM EST Office Visit [address] [address] Siomara Vidal PA-C 4 [facility], [place], [place] [address] [email or web address] Saniya Dominguez, PT [address] [place] [address] documented as of this encounter Results * [...] There are scattered fibroglandular densities. POS - [id number] Narrative 03/14/2018 9:07 AM EDT 63-year-old female [...] There are scattered fibroglandular densities. POS - [id number] Pedro Hernandez MD IMG MG EXAMS Final R esult documented in this encounter Visit Diagnoses Diagnosis Breast screening Breast screening, unspecified Breast screening Breast screening, unspecified documented in this encounter Care Teams Soa Architect Relationship Specialty Start Date End Date Pedro Hernandez MD [address] [place] [address] [place] [address] PCP - General Internal Medicine 01/31/18 01/19/25 Shanell Maddox MD [address] [place] [address] [place] [address] PCP - General Internal Medicine 01/20/25 Pedro Hernandez MD [address] [place] [address] [place] [id number] Historical LMR Provider 07/06/17 2 Berna Carroll MD [address] [place] [address] Historical LMR Provider 07/06/17 2 documented as of this encounter Additional Source Comments The information contained in this document represents components of the legal health record. It is not the complete legal health record.[facility]
--- OUTSIDE RECORDS SUMMARY | 2025-08-09 18:02 | XMS_ITS | Clinical Summary ---
Author Organization [facility] Address [address] [place] [address] Phone Care Team Providers Care Standard Machine Stitcher Name Role Phone Shanell Maddox MD Primary Care Provider + [phone] Allergies Active Allergy Reactions Criticality Noted Date [...] day as needed for mild constipation . 5 Active senna (SENOKOT) 8.6 mg tablet Take 1 tablet by mouth daily as needed for constipation . 5 Active aspirin 81 MG EC tablet Take 1 tablet (81 mg total) by mouth 2 (two) times a day. For 4 weeks post surgery. 5 Active acetaminophen (TYLENOL) 500 MG tablet Take 2 tablets (1,000 mg total) by mouth every 8 (eight) hours. 5 Active celecoxib (CELEBREX) 100 MG capsule Take 1 capsule (100 mg total) by mouth 2 (two) times a day for 14 days. 28 capsule 5 Active ondansetron (ZOFRAN-ODT) 4 MG disintegrating tabletIndications:P ost-operative pain,Nausea Take 1 tablet (4 mg total) by mouth every 8 (eight) hours as needed for nausea. 15 tablet Active diclofenac sodium (VOLTAREN) 75 MG EC tablet Take 75 mg by mouth 2 (two) times a day. Active Active Problems Problem Noted Date Diagnosed Date Primary localized osteoarthritis of right knee 0 01/27/2025 Essential hypertension 08/07/2024 Psoriasis vulgaris 06/16/2014 Encounters Date Type Department Care Team Description 08/09/2025 11:15 AM EST Office Visit [address] [address] Siomara Vidal PA-C Baran, [place] Anna, PT Acute pain of right knee (Primary Dx); Hx of total knee replacement, right 08/06/2025 11:45 AM EST Office Visit [address] [address] Siomara Vidal PA-C Truehart, Jane, CUTTER AND PRESSER Acute pain of right knee (Primary Dx) 08/03/2025 10:45 AM EST Office Visit [address] [address] Siomara Vidal PA-C Baran, [place] Anna, PT Acute pain of right knee (Primary Dx); Hx of total knee replacement, right 07/30/2025 11:45 AM EST Office Visit [address] [address] Siomara Vidal PA-C Truehart, Jane, C[employer]TER [employer] PR[employer]ER Acute pain of right knee (Primary Dx) 07/29/2025 10:00 AM EST Office Visit [facility] [address] [place] [address] Teja Daley MD Status post total right knee replacement (Primary Dx) 07/23/2025 11:45 AM EST Office Visit [address] [address] Siomara Vidal PA-C Truehart, Jane, [employer] PR[employer]ER Acute pain of right knee (Primary Dx) 07/19/2025 1:15 PM EST Office Visit [address] [address] Siomara Vidal, Shyla Gamino, C[employer]TER AND PRESSER Acute pain of right knee (Primary Dx) 07/15/2025 2:00 PM EDT Office Visit [address] [address] Siomara Vidal PA-C Baran, [place] Anna, PT Acute pain of right knee (Primary Dx); Hx of total knee replacement, right 07/12/2025 3:15 PM EDT Office Visit [address] [address] Siomara Vidal, Saniya Castillo, PT Acute pain of right knee (Primary Dx); Hx of total knee replacement, right 07/12/2025 Plan of Care Documentation [address] [address] 07/09/2025 10:00 AM EDT Home Care Visit [facility] [address] [place] [address] Sigifredo Borden, PT PT OASIS DISCHARGE VISIT 07/05/2025 11:45 AM EDT Home Care Visit [facility] [address] [place] [address] Cassie Jason, C[employer]TER AND PRESSER [employer]TER [employer]ER HOME VISIT 07/02/2025 10:00 AM EDT Home Care Visit [facility] [address] [place], [place] [phone] Sigifredo Borden, PT PT HOME VISIT 06/29/2025 2:15 PM EDT Home Care Visit [facility] [address] [place] [address] Cassie Jason, CUTTER AND PRESSER [employer]TER [employer] HOME VISIT 06/29/2025 10:01 AM EDT - 06/29/2025 11:59 PM EDT Hospital Encounter [address] [address] Siomara Vidal PA-C Discharge Disposition: Home or Self Care 06/29/2025 10:00 AM EDT Office Visit [facility] Medicine [address] [place] [address] Siomara Vidal PA-C Status post total right knee replacement (Primary Dx) 06/26/2025 Refill [facility] [address] [address] Braden Gutiérrez PA-C Medication Refill 06/25/2025 11:00 AM EDT Home Care Visit [facility] [address] [place] [address] Cassie Jason, CUTTER AND PRESSER [employer] HOME VISIT 06/23/2025 10:15 AM EDT Home Care Visit [facility] [address] [place] [address] Cassie Jason, CUTTER AND PRESSER [employer] HOME VISIT 06/21/2025 11:00 AM EDT Home Care Visit [facility] [address] [place] [address] Cassie Jason, CUTTER AND PRESSER [employer] HOME VISIT 06/21/2025 Orders Only [facility] [address] [address] Siomara Vidal PA-C 06/18/2025 10:00 AM EDT Home Care Visit [facility] [address] [place] [address] Sigifredo Borden, PT PT HOME VISIT 06/17/2025 10:00 AM EDT Home Care Visit [facility] [address] [place] [address] Sigifredo Borden, PT PT HOME VISIT 06/17/2025 Telephone [facility] [address] [address] Sammie Cuenca RN Postop call 06/16/2025 9:00 AM EDT Home Care Visit [facility] [address] [place] [phone] Sigifredo Borden, PT PT OASIS START OF CARE (SOC) 06/16/2025 [facility] [address] [place] [phone] 06/15/2025 7:35 AM EDT Anesthesia Event OR Admitting Dept - Virtual Department [address] [place] [address] Jami Diana MD 06/15/2025 7:30 AM EDT - 06/15/2025 10:23 AM EDT Surgery OR Admitting Dept - Virtual Department [address] [place] [address] Teja Daley MD ARTHROPLASTY TOTAL KNEE 06/15/2025 6:03 AM EDT - 06/15/2025 2:35 PM EDT Hospital Encounter OR Admitting Dept - Virtual Department [address] [place] [address] Teja Daley MD Discharge Disposition: Home or Self Care 06/15/2025 Procedure Pass OR Admitting Dept - Virtual Department [address] [place] [address] 06/14/2025 8:00 AM EDT Pre-Admission Testing Pre Procedure Evaluation [address] [place] [address] Teja Daley MD 05/20/2025 10:03 AM EDT - 05/20/2025 11:59 PM EDT Hospital Encounter [address] [address] Siomara Vidal PA-C Discharge Disposition: Home or Self Care 05/20/2025 10:00 AM EDT Office Visit [facility] [address] [place] [address] Siomara Vidal PA-C Primary localized osteoarthritis of right knee (Primary Dx); Pre-op exam 05/20/2025 [facility] [address] [place] [phone] Homehealth, Interface Provider, from Last 3 Months Social History Tobacco [...] Description 08/11/2025 11:15 AM EST Office Visit [facility] [address] [place] [address] Siomara Vidal PA-C [address] [place] [address] [facility] [place] [place] [address] Saniya Dominguez, PT [address] [place] [address] 08/16/2025 11:45 AM EST Office Visit [address] [address] Siomara Vidal PA-C 4 [facility], [place], [place] [phone] Shyla Rodriguez, CUTTER AND PRESSER [address] [place] [address] 08/19/2025 10:45 AM EST Office Visit [address] [address] Siomara Vidal PA-C 4 [facility], [place], [place] [phone] Saniya Dominguez, PT [address] [place] [address] Health Maintenance Due Date Last Done Comments LIPID PANEL 1954 DEPRESSION SCREENING 1966 HEPATITIS C SCREENING 02/08/1972 COLOGUARD 1999 COLONOSCOPY 1999 COLORECTAL CANCER SCREENING 1999 FIT TEST 1999 FOBT 1999 SIGMOIDOSCOPY 1999 VIRTUAL COLONOSCOPY 1999 ZOSTER VACCINES (3 of 3) 08/18/2018 06/23/2018, 06/16 OSTEOPOROSIS SCREENING INITIAL (ONE-TIME) 2019 MAMMOGRAM 03/14/2020 03/14/2018 COVID-19 VACCINE ( season) 2026 07/05/2025, 07/01/2024, 06/12/2023, Additional history exists BLOOD PRESSURE 01/07/2026 07/09/2025 CREATININE LEVEL 02/02/2026 02/02/2025 POTASSIUM LEVEL 02/02/2026 02/02/2025 RSV VACCINE (1 - 1-dose 75+ series) 2029 Adult Td,Tdap Booster 08/25/2034 08/25/2024 PNEUMOCOCCAL VACCINES (50+ years) Completed 06/11/2022, 06/07/2021 INFLUENZA VACCINE Completed 07/05/2025, , 06/12/2023, Additional history exists SMOKING STATUS SCREENING (Once After 26 Yrs) Completed 07/29/2025 HEPATITIS A VACCINES Aged Out No long [...] this topic Medical Devices Implanted Type Area Medical Affairs Director Device Identifier Shelf Expiration Date Model / Serial / Lot Prosthetic Joint Prosthetic Joint Left: Knee Knee Implant Component Size 7 Femoral Persona Reynolds Cement Cruciate Retaining Narrow Right - [id number] Implanted:Qty: 1 on 06/15/2025 by Teja Daley MD at [facility] STANDARD Right: Knee VIGNESH BIOMET [id number] 1 02/21/2034 [id number] / / [id number] Knee Implant 5deg Component Tibial Persona Titanium Stemmed Cemented Rt Size E - [id number] Implanted:Qty: 1 on 06/15/2025 by Teja Daley MD at [facility] Right: Knee VIGNESH BIOMET [id number] 1 02/24/2035 [id number] / / [id number] Knee Patella 35mm Rachel Persona All Polyethylene Cemented Conventional - [id number] Implanted:Qty: 1 on 06/15/2025 by Teja Daley MD at [facility] Right: Patella VIGNESH BIOMET [id number] 1 12/08/2029 [id number] / / [id number] Cement Bone 1x40 Standard - [id number] Implanted:Qty: 2 on 06/15/2025 by Teja Daley MD at [facility] Right: Knee VIGNESH BIOMET [id number] 10/16/2027 [id number] / / [id number] Knee Implant 13mm Component Articular Surface Persona Polyethylene Vivacite E Cruciate Retaining Fixed Rt 6 7 Ef - [id number] Implanted:Qty: 1 on 06/15/2025 by Teja Daley MD at [facility] Right: Knee VIGNESH BIOMET [id number] 1 03/13/2027 [id number] / / [id number] Procedures Procedure Name Priority Date/Time Associated Diagnosis Comments XR KNEE 3 VIEW (RIGHT) Routine 06/29/2025 10:06 AM EDT Status post total right knee replacement XR KNEE 1-2 VIEWS (RIGHT) Routine 06/15/2025 12:48 PM EDT POCT GLUCOSE Routine 06/15/2025 10:16 AM EDT FL TOTAL KNEE ARTHROPLASTY 06/15/2025 7:35 AM EDT Primary localized osteoarthritis of right knee Special Needs Persona [facility] ANES SPINAL Routine 06/15/2025 7:35 AM EDT FL ANESTHESIA PERIPHERAL BLOCK PLACEHOLDER Routine 06/15/2025 7:25 AM EDT POCT GLUCOSE Routine 06/15/2025 6:12 AM EDT XR KNEE 4 OR MORE VIEWS (RIGHT) Routine 05/20/2025 10:22 AM EDT Primary localized osteoarthritis of right knee Pre-op exam MRSA/MSSA PRE-OP PCR Routine 05/20/2025 10:03 AM EDT Pre-op exam BASIC METABOLIC PANEL (BMP) Routine 02/02/2025 11:26 AM EDT Primary localized [...] note for this date of service. us Siomara Vidal PA-C IMG XR LOWER EXTREMITY F inal Result * XR KNEE 1-2 VIEWS (RIGHT) (06/15/2025 12:48 PM EDT) Anatomical Region Laterality Modality Knee Right Computed Radiogr aphy 06/15/2025 12:5 1 PM EDT Impressions 06/15/2025 12:52 PM EDT New total knee arthroplasty. Narrative 06/15/2025 12:52 PM EDT XR KNEE 1-2 VIEWS (RIGHT) Referring clinician's provided indication for this examination in [facility]: Knee replacement, asymptomatic, follow up COMPARISON: XR KNEE 4 OR MORE VIEWS (RIGHT) FINDINGS: New total knee arthroplasty with postoperative soft tissue air and a joint effusion. Hardware is intact. No periprosthetic fracture. Procedure Note Devika Robles MD - 06/15/2025 XR KNEE 1-2 VIEWS (RIGHT) Referring clinician's provided indication for this examination in [facility]:Knee replacement, asymptomatic, follow up COMPARISON: XR [...] Glucose, POCT 98 70 - 100 mg/dL [facility] 06/15/2025 10:1 6 AM EDT 06/15/2025 10:17 AM EDT us Teja Daley MD POINT OF CARE TEST ORDERABLES Final Result [facility] [address] [place] [address] * Spinal (06/15/2025 7:35 AM EDT) Narrative Sigifredo Macias CRNA - 06/15/2025 7:35 AM EDT Sigifredo Macias CRNA 06/15/2025 10:57 AM Spinal Placement Procedure Note: Start time: 06/15/2025 7:35 AM Performed by: fellow/resident/EXPLOSIVES ENGINEER Anesthesiologist: Jami Diana MD Fellow/Resident/EXPLOSIVES ENGINEER: Sigifredo Macias CRNA [facility] Protocol performed: consent obtained, patient identified with 2 identifiers, correct procedure verified, correct site and laterality confirmed, verified equipment, coagulation status reviewed and implant history reviewed. Procedure details: Patient position: sitting Prep: chloraprep Approach: midline Location: L3-4 Needle: Needle type: Quincke Needle gauge: 22 Needle length: standard CSF was aspirated Outcome: Blood aspirated? no Paresthesia: no us Jami Diana MD [place] ANESTHESIA Final Result * [place] ANESTHESIA PERIPHERAL BLOCK PLACEHOLDER (06/15/2025 7:25 AM EDT) Narrative Sigifredo Macias CRNA - 06/15/2025 7:25 AM EDT Sigifredo Macias CRNA 06/15/2025 10:57 AM Peripheral Block Placement Procedure Note: Start Time: 06/15/2025 7:25 AM Stop Time:06/15/2025 7:30 AM Reason for block: surgeon request and post op pain managment Block performed by: resident/EXPLOSIVES ENGINEER Fellow/Resident/EXPLOSIVES ENGINEER: Sigifredo Macias CRNA [facility] Protocol Performed: consent obtained, patient identified with [...] Post Block Placement Assessment Complications Observed: No Jami Diana MD [place] ANESTHESIA Final Result * XR KNEE 4 [...] (MRSA/MSSA) PCR, Preoperative (05/20/2025 10:03 AM EDT) [facility] MRSA PCR SCREEN Negative Negative [facility] Staph Aureus PCR Screen Negative Negative [facility] Comment:The Xpert MRSA Assay is intended to aid in the prevention and control of MRSA infections in healthcare settings. The assay is not intended to diagnose nor to guide or monitor treatment for MRSA infections. Other (Nasal) 05/20/2025 10: 03 AM EDT 05/20/2025 4:06 PM EDT Siomara Vidal PA-C LAB GENERAL ORDERABLES F inal Result [facility] [address] [place] [address] * (ABNORMAL) Basic metabolic panel (02/02/2025 11:26 AM EDT) SODIUM 138 133 - 146 mmol/L [facility] CHLORIDE 103 96 - 108 mmol/L [facility] POTASSIUM 4.1 3.3 - 5.1 mmol/L [facility] CO2 24 21 - 35 mmol/L [facility] BUN 16 6 - 19 mg/dL [facility] CREATININE 0.70 0.5 - 1.5 mg/dL [facility] GLUCOSE 107(H) 70 - 99 mg/dL [facility] CALCIUM 9.1 8.4 - 10.3 mg/dL [facility] EGFR 93 >59 mL/min/1.7 3m2 [facility] Comment:Estimated glomerular filtration rate calculated using the CKD-EPI refit equation. ANION GAP 15 10 - 20 mmol/L [facility] Blood 02/02/2025 11:2 6 AM EDT 02/02/2025 11:28 AM EDT us Teja Daley MD LAB BLOOD BKR ORDERABLES Makenna l Result [facility] [address] [place] [address] * BI MAMMOGRAM SCREENING WITH TOMOSYNTHESIS WITH CAD (BILATERAL) (03/14/2018 8:16 AM EDT) Anatomical Region Laterality Modality Breast Left, Breast Right, Breast Bilateral Bila teral Mammography 03/14/2018 8:07 AM EDT Impressions 03/14/2018 9:07 AM EDT No mammographic evidence of malignancy. Recommend routine annual surveillance. BI-RADS CATEGORY: 2 - Benign finding. DENSITY: There are scattered fibroglandular densities. POS - [id number] Narrative 03/14/2018 9:07 AM EDT 63-year-old female [...] There are scattered fibroglandular densities. POS - [id number] Pedro Hernandez MD IMG MG EXAMS Final R esult from Last 3 Months or Most Recently Relevant to Health Maintenance Insurance BLUE [employer]OSS MEDEX SUPPLEMENT MEDICARE PART A & B [employer] MEDEX SUPPLEMENT MEDICARE PART A & B [employer] SUPPLEMENT MEDICARE PART A & B [employer] SUPPLEMENT MEDICARE PART A & B [employer] SUPPLEMENT MEDICARE PART A & B [employer] SUPPLEMENT MEDICARE PART A & B [employer] SUPPLEMENT MEDICARE PART A & B [employer] SUPPLEMENT MEDICARE PART A & B [employer] SUPPLEMENT MEDICARE PART A & B Care Teams Standard Machine Stitcher Relationship Specialty Start Date End Date Shanell Maddox MD [address] [place] [address] [place] [address] PCP - General Internal Medicine 01/20/25 Additional Source Comments The information contained in this document represents components of the legal health record. It is not the complete legal health record.[facility]
--- OUTSIDE RECORDS SUMMARY | 2025-08-09 18:02 | XMS_ITS | Encounter Summary ---
Author Organization [facility] Address [address] [place] [address] Phone Care Team Providers Care Stage Builder Name Role Phone Pedro Hernandez MD Unavailable [phone] Berna Carroll MD Unavailable Pedro Hernandez MD Primary Care Provider Shanell Maddox MD Primary Care Provider + [phone] Reason for Referral * Physical Therapy (Routine) - Closed Specialty Diagnoses / Procedures Referred By Contac t Referred To Contact Physical Therapy Diagnoses L TKA System, Provider Not In, [facility] [phone] [place] [address] Phone: tel: Referral ID Status Reason Start Date Expiration Date Visits Re quested Visits Authorized [id number] Closed 12/01/2018 07/16/2019 25 25 Encounter Details Date Type Department Care Team (Latest Contact Info) Description 12/01/2018 Transcribe Orders [facility] [address] [place] [address] Teja Daley MD [address] [place] [address] [facility] [place] [address] [email or web address] Encounter for rehabilitation (Primary Dx) Social [...] Description 08/11/2025 11:15 AM EST Office Visit [address] [address] Siomara Vidal PA-C [address] [facility] Orthopedics Sports [facility], [place] [address] Saniya Dominguez, PT [address] [place] [address] 08/16/2025 11:45 AM EST Office Visit [address] [address] Siomara Vidal PA-C 4 [facility] Sports [facility], [place] [address] Shyla Rodriguez, DIRECTOR OF STRATEGIC PROGRAMS [address] [place] [address] 08/19/2025 10:45 AM EST Office Visit [address] [address] Siomara Vidal PA-C 4 [facility] Sports [facility], [place], [place] [phone] Saniya Dominguez, PT [address] [place], [place] [phone] Scheduled Referrals Name Type Priority Associated Diagnoses Orde r Schedule Ambulatory referral to [facility] Physical Therapy Outpatient Referral Routine Encounter for rehabilitation Ordered: 12/01/2018 documented as of this encounter Visit Diagnoses Diagnosis Encounter for rehabilitation- Primary documented in this encounter Care Teams Stage Builder Relationship Specialty Start Date End Date Pedro Hernandez MD [address] [place] [address] [place] [address] PCP - General Internal Medicine 01/31/18 01/19/25 Shanell Maddox MD [address] [place] [address] [place] [address] PCP - General Internal Medicine 01/20/25 Pedro Hernandez MD [address] [place] [address] [place] [address] Historical LMR Provider 07/06/17 2 Berna Carroll MD [address] [place] [address] Historical LMR Provider 07/06/17 2 documented as of this encounter Additional Source Comments The information contained in this document represents components of the legal health record. It is not the complete legal health record.[facility]
== END 2025-08-09 13:25 | disposition home or self-care (01) ==
LOC: HO.HMGAL 13:24
PROVIDERS: PCP Internal Medicine; Visit Provider Registered Nurse Emergency
DX: J30.89 Other allergic rhinitis (principal)
CPT/HCPCS: 95117; 95165

== ENCOUNTER 2025-09-06 11:10 | Outpatient (AMB) | payer MEDICARE, SELFPAY ==
--- OUTSIDE RECORDS SUMMARY | 2025-09-06 14:14 | XMS_ITS | Encounter Summary ---
Author Organization [facility] Address [address] [place] [address] Phone Care Team Providers Care Mail Handlers Supervisor Name Role Phone Pedro Hernandez MD Unavailable [phone] Berna Carroll MD Unavailable [phone] Pedro Hernandez MD Primary Care Provider Shanell Maddox MD Primary Care Provider + [phone] Reason for Referral * Physical Therapy (Routine) - Closed Specialty Diagnoses / Procedures Referred By Contac t Referred To Contact Physical Therapy Diagnoses L TKA System, Provider Not In, [facility] [phone] [place] [address] Phone: tel: Referral ID Status Reason Start Date Expiration Date Visits Re quested Visits Authorized [id number] Closed 12/01/2018 07/16/2019 25 25 Encounter Details Date Type Department Care Team (Latest Contact Info) Description 12/01/2018 Transcribe Orders [facility] [address] [place] [address] Teja Daley MD [address] [place] [address] [facility] [place], [place] [phone] [email or web address] Encounter for rehabilitation (Primary Dx) Social History Tobacco Use Types Packs/Day Years Used Date Smoking Tobacco: Never Assessed Comments No Sex and Gender Information Value Date Recorded Sex Assigned at Not on file Legal Sex Female 9:57 PM EDT Gender Identity Not on file Sexual Orientation Not on file documented as of this encounter Plan of Treatment Scheduled Referrals Name Type Priority Associated Diagnoses Orde r Schedule Ambulatory referral to [facility] Physical Therapy Outpatient Referral Routine Encounter for rehabilitation Ordered: 12/01/2018 documented as of this encounter Visit Diagnoses Diagnosis Encounter for rehabilitation- Primary documented in this encounter Care Teams Mail Handlers Supervisor Relationship Specialty Start Date End Date Pedro Hernandez MD [address] [place] [address] [place] [address] PCP - General Internal Medicine 01/31/18 01/19/25 Shanell Maddox MD [address] [place] [address] [place] [address] PCP - General Internal Medicine 01/20/25 Pedro Hernandez MD [address] [place] [address] [place] [address] Historical LMR Provider 07/06/17 2 Berna Carroll MD [address] [place] [address] Historical LMR Provider 07/06/17 2 documented as of this encounter Additional Source Comments The information contained in this document represents components of the legal health record. It is not the complete legal health record.[facility]
--- OUTSIDE RECORDS SUMMARY | 2025-09-06 14:14 | XMS_ITS | Encounter Summary ---
Author Organization [facility] Address [address] [place] [address] [place] [address] Phone Care Team Providers Care Package Center Supervisor Name Role Phone Shanell Maddox MD Primary Care Provider + [phone] Encounter Details Date Type Department Care Team (Late st Contact Info) Description 06/15/2025 Procedure Pass OR Admitting Dept - Virtual Department [address] [place] [address] Social History Tobacco Use Types Packs/Day Years [...] as of this encounter Plan of Treatment Not on file documented as of this encounter Visit Diagnoses Not on filedocumented in this encounter Care Teams Package Center Supervisor Relationship Specialty Start Date End Date Shanell Maddox MD [address] [place] [address] [place] [address] PCP - General Internal Medicine 01/20/25 documented as of this encounter Additional Source Comments The information contained in this document represents components of the legal health record. It is not the complete legal health record.[facility]
--- OUTSIDE RECORDS SUMMARY | 2025-09-06 14:14 | XMS_ITS | Clinical Summary ---
Author Organization [address] [place] [address] Address [address] [place] [address] Phone Care Team Providers Care Cardiac Cath Technician Name Role Phone Pedro Hernandez MD Primary Care Provider [phone] Allergies No known active allergies Active Problems [...] pollen Allergic rhinitis due to animal dander Arthropathic psoriasis 08/07/2024 Essential hypertension 08/07/2024 Immunizations Immunization Administration [...] age to complete this topic Insurance MEDICARE [facility] Care Teams Cardiac Cath Technician Relationship Specialty Start Date End Date Pedro Hernandez MD [address] [place] [address] Dr Paramjit [place] PCP - General 06/10/24
--- OUTSIDE RECORDS SUMMARY | 2025-09-06 14:14 | XMS_ITS | Clinical Summary ---
Author Organization [facility] Address [address] [place] [phone] Phone Care Team Providers Care Cycle Analyst Name Role Phone Shanell Maddox MD Primary Care Provider + [phone] Allergies Active Allergy Reactions Criticality Noted Date [...] hours as needed for nausea. 15 tablet 5 Active diclofenac sodium (VOLTAREN) 75 MG EC tablet Take 75 mg by mouth 2 (two) times a day. 5 Active Active Problems Problem Noted Date Diagnosed Date Primary localized osteoarthritis of right knee 0 01/27/2025 Essential hypertension 08/07/2024 Psoriasis vulgaris 06/16/2014 Encounters Date Type Department Care Team Description 08/19/2025 10:45 AM EST Office Visit [facility] [address] [address] Siomara Vidal PA-C Baran, [place] Anna, PT Acute pain of right knee (Primary Dx); Hx of total knee replacement, right 08/16/2025 11:45 AM EST Office Visit [facility] [address] [address] Siomara Vidal PA-C Truehart, Jane, HEAD TURNING MACHINE OPERATOR Acute pain of right knee (Primary Dx) 08/11/2025 11:15 AM EST Office Visit [facility] [address] [address] Siomara Vidal PA-C Baran, [place] Anna, PT Acute pain of right knee (Primary Dx); Hx of total knee replacement, right 08/09/2025 11:15 AM EST Office Visit [facility] [address] [address] Siomara Vidal PA-C Baran, [place] Anna, PT Acute pain of right knee (Primary Dx); Hx of total knee replacement, right 08/06/2025 11:45 AM EST Office Visit [facility] [address] [address] Siomara Vidal PA-C Truehart, Jane, HEAD TURNING MACHINE OPERATOR Acute pain of right knee (Primary Dx) 08/03/2025 10:45 AM EST Office Visit [facility] [address] [address] Siomara Vidal PA-C Baran, [place] Anna, PT Acute pain of right knee (Primary Dx); Hx of total knee replacement, right 07/30/2025 11:45 AM EST Office Visit [facility] [address] [address] Siomara Vidal, Shyla Gamino, HEAD TURNING MACHINE OPERATOR Acute pain of right knee (Primary Dx) 07/29/2025 10:00 AM EST Office Visit [facility] [address] [place] [id number] Teja Daley MD Status post total right knee replacement (Primary Dx) 07/23/2025 11:45 AM EST Office Visit [facility] [address] [address] Siomara Vidal, Shyla Gamino, HEAD TURNING MACHINE OPERATOR Acute pain of right knee (Primary Dx) 07/19/2025 1:15 PM EST Office Visit [facility] [address] [address] Siomara Vidal, Shlya Gamino, HEAD TURNING MACHINE OPERATOR Acute pain of right knee (Primary Dx) 07/15/2025 2:00 PM EDT Office Visit [facility] [address] [address] Siomara Vidal, Saniya Castillo, PT Acute pain of right knee (Primary Dx); Hx of total knee replacement, right 07/12/2025 3:15 PM EDT Office Visit [facility] [address] [address] Siomara Vidal, Saniya Castillo, PT Acute pain of right knee (Primary Dx); Hx of total knee replacement, right 07/12/2025 Plan of Care Documentation [facility] [address] [address] 07/09/2025 10:00 AM EDT Home Care Visit [facility] [address] [place], [place] [phone] Sigifredo Borden, PT PT OASIS DISCHARGE VISIT 07/05/2025 11:45 AM EDT Home Care Visit [facility] [address] [place] [address] Cassie Jason, HEAD TURNING MACHINE OPERATOR HEAD TURNING MACHINE OPERATOR HOME VISIT 07/02/2025 10:00 AM EDT Home Care Visit [facility] [address] [place] [address] Sigifredo Borden, PT PT HOME VISIT 06/29/2025 2:15 PM EDT Home Care Visit [facility] [address] [place] [address] Cassie Jason, HEAD TURNING MACHINE OPERATOR HEAD TURNING MACHINE OPERATOR HOME VISIT 06/29/2025 10:01 AM EDT - 06/29/2025 11:59 PM EDT Hospital Encounter [address] [address] iSomara Vidal PA-C Discharge Disposition: Home or Self Care 06/29/2025 10:00 AM EDT Office Visit [facility] [address] [place] [phone] Sioamra Vidal PA-C Status post total right knee replacement (Primary Dx) 06/26/[address] [facility] and [facility] [address] [place] [address] Braden Gutiérrez PA-C Medication Refill 06/25/2025 11:00 AM EDT Home Care Visit [facility] [address] [place] [address] Cassie Jason, HEAD TURNING MACHINE OPERATOR HEAD TURNING MACHINE OPERATOR HOME VISIT 06/23/2025 10:15 AM EDT [facility] [address] [place] [address] Cassie Jason, HEAD TURNING MACHINE OPERATOR HEAD TURNING MACHINE OPERATOR HOME VISIT 06/21/2025 11:00 AM EDT Home Care Visit [facility] [address] [place] [address] Cassie Jason, HEAD TURNING MACHINE OPERATOR HEAD TURNING MACHINE OPERATOR HOME VISIT 06/21/[address] [facility] [address] [place] [phone] Siomara Vidal PA-C 06/18/2025 10:00 AM EDT Home Care Visit [facility] [address] [place] [address] Sigifredo Borden, PT PT HOME VISIT 06/17/2025 10:00 AM EDT Home Care Visit [facility] [address] [place] [address] Sigifredo Borden, PT PT HOME VISIT 06/17/[address] [facility] [address] [address] Sammie Cuenca RN Postop call 06/16/2025 9:00 AM EDT Home Care Visit [facility] [address] [place] [address] Sigifredo Borden, PT PT OASIS START OF CARE (SOC) 06/16/2025 Plan of Care Documentation [facility] [address] [place] [address] 06/15/2025 7:35 AM EDT Anesthesia Event OR Admitting Dept - Virtual Department [address] [place] [address] Jami Diana MD 06/15/2025 7:30 AM EDT - 06/15/2025 10:23 AM EDT Surgery OR Admitting Dept - Virtual Department [address] [place] [phone] Teja Daley MD ARTHROPLASTY TOTAL KNEE 06/15/2025 6:03 AM EDT - 06/15/2025 2:35 PM EDT Hospital Encounter OR Admitting Dept - Virtual Department [address] [place] [address] Teja Daley MD Discharge Disposition: Home or Self Care 06/15/2025 Procedure Pass OR Admitting Dept - Virtual Department [address] [place] [address] 06/14/2025 8:00 AM EDT Pre-Admission Testing Pre Procedure Evaluation [address] [place] [address] Teja Daley MD from Last 3 Months Social History Tobacco [...] 06/03/2025 1:08 PM EDT Plan of Treatment Health Maintenance Due Date [...] this topic Medical Devices Implanted Type Area Speech Pathology Teacher Device Identifier Shelf Expiration Date Model / Serial / Lot Prosthetic Joint Prosthetic Joint Left: Knee Knee Implant Component Size 7 Femoral Persona [place] Cement Cruciate Retaining Narrow Right - [id number] Implanted:Qty: 1 on 06/15/2025 by Teaj Daley MD at [facility] STANDARD Right: Knee VIGNESH BIOMET [id number] 1 02/21/2034 [id number] / / [id number] Knee Implant 5deg Component Tibial Persona Titanium Stemmed Cemented Rt Size E - [id number] Implanted:Qty: 1 on 06/15/2025 by Teja Daley MD at [facility] Right: Knee VIGNESH BIOMET [id number] 1 02/24/2035 [id number] / / [id number] Knee Patella 35mm Rachel Persona All Polyethylene Cemented Conventional - [id number] Implanted:Qty: 1 on 06/15/2025 by Teja Daley MD at [facility] Right: Patella VIGNESH BIOMET [id number] 1 12/08/2029 [id number] / / [id number] Cement Bone 1x40 Standard - [id number] Implanted:Qty: 2 on 06/15/2025 by Teja Daley MD at [facility] Right: Knee VIGNESH BIOMET [id number] 10/16/2027 [id number] / / [id number] Knee Implant 13mm Component Articular Surface Persona Polyethylene Vivacite E Cruciate Retaining Fixed Rt 6 7 Ef - [id number] Implanted:Qty: 1 on 06/15/2025 by Teja Daley MD at [facility] Right: Knee VIGNESH BIOMET [id number] 1 03/13/2027 [id number] / / [id number] Procedures Procedure Name Priority Date/Time Associated Diagnosis Comments XR KNEE 3 VIEW (RIGHT) Routine 06/29/2025 10:06 AM EDT Status post total right knee replacement XR KNEE 1-2 VIEWS (RIGHT) Routine 06/15/2025 12:48 PM EDT POCT GLUCOSE Routine 06/15/2025 10:16 AM EDT RI TOTAL KNEE ARTHROPLASTY 06/15/2025 7:35 AM EDT Primary localized osteoarthritis of right knee Special Needs Persona [facility] ANES SPINAL Routine 06/15/2025 7:35 AM EDT RI ANESTHESIA PERIPHERAL BLOCK PLACEHOLDER Routine 06/15/2025 7:25 AM EDT POCT GLUCOSE Routine 06/15/2025 6:12 AM EDT BASIC METABOLIC PANEL (BMP) Routine 02/02/2025 11:26 [...] clinician's provided indication for this examination in [facility]: Knee replacement, asymptomatic, follow up COMPARISON: XR KNEE 4 OR MORE VIEWS (RIGHT) FINDINGS: New total knee arthroplasty with postoperative soft tissue air and a joint effusion. Hardware is intact. No periprosthetic fracture. Procedure Note Devika Robles MD - 06/15/2025 XR KNEE 1-2 VIEWS (RIGHT) Referring clinician's provided indication for this examination in [facility]:Knee replacement, asymptomatic, follow up COMPARISON: XR [...] of2 resultswithin the time period is included. [facility] Signature Glucose, POCT 98 70 - 100 mg/dL [facility] 06/15/2025 10:1 6 AM EDT 06/15/2025 10:17 AM EDT us Teja Daley MD POINT OF CARE TEST ORDERABLES Final Result Performing Organization Address City/State/[facility] Co de Phone Number [address] [address] * Spinal (06/15/2025 7:35 AM EDT) Narrative Sigifredo Macias CRNA - 06/15/2025 7:35 AM EDT Sigifredo Macias CRNA 06/15/2025 10:57 AM Spinal Placement Procedure Note: Start time: 06/15/2025 7:35 AM Performed by: fellow/resident/SECOND TIME WORKER Anesthesiologist: Jami Diana MD Fellow/Resident/SECOND TIME WORKER: Sigifredo Macias CRNA Ernul Protocol performed: consent obtained, patient identified with 2 identifiers, correct procedure verified, correct site and laterality confirmed, verified equipment, coagulation status reviewed and implant history reviewed. Procedure details: Patient position: sitting Prep: chloraprep Approach: midline Location: L3-4 Needle: Needle type: Quincke Needle gauge: 22 Needle length: standard CSF was aspirated Outcome: Blood aspirated? no Paresthesia: no us Jami Diana MD RI ANESTHESIA Final Result * RI ANESTHESIA PERIPHERAL BLOCK PLACEHOLDER (06/15/2025 7:25 AM EDT) Narrative Sigifredo Macias CRNA - 06/15/2025 7:25 AM EDT Sigifredo Macias CRNA 06/15/2025 10:57 AM Peripheral Block Placement Procedure Note: Start Time: 06/15/2025 7:25 AM Stop Time:06/15/2025 7:30 AM Reason for block: surgeon request and post op pain managment Block performed by: resident/SECOND TIME WORKER Fellow/Resident/SECOND TIME WORKER: Sigifredo Macias CRNA Ernul Protocol Performed: consent obtained, patient identified with [...] Complications Observed: No us Jami Diana MD RI ANESTHESIA Final Result * (ABNORMAL) Basic metabolic panel (02/02/2025 11:26 AM EDT) SODIUM 138 133 - 146 mmol/L [facility] CHLORIDE 103 96 - 108 mmol/L [facility] POTASSIUM 4.1 3.3 - 5.1 mmol/L [facility] CO2 24 21 - 35 mmol/L [facility] BUN 16 6 - 19 mg/dL [facility] CREATININE 0.70 0.5 - 1.5 mg/dL [facility] GLUCOSE 107(H) 70 - 99 mg/dL [facility] CALCIUM 9.1 8.4 - 10.3 mg/dL [facility] EGFR 93 >59 mL/min/1.7 3m2 [facility] Comment:Estimated glomerular filtration rate calculated using the CKD-EPI refit equation. ANION GAP 15 10 - 20 mmol/L [facility] Blood 02/02/2025 11:2 6 AM EDT 02/02/2025 11:28 AM EDT us Teja Daley MD LAB BLOOD BKR ORDERABLES Makenna enriquez Result [address] [address] * BI MAMMOGRAM SCREENING WITH TOMOSYNTHESIS WITH CAD (BILATERAL) (03/14/2018 8:16 AM EDT) Anatomical Region Laterality Modality Breast Left, Breast Right, Breast Bilateral Bila teral Mammography 03/14/2018 8:07 AM EDT Impressions 03/14/2018 9:07 AM EDT No mammographic evidence of malignancy. Recommend routine annual surveillance. BI-RADS CATEGORY: 2 - Benign finding. DENSITY: There are scattered fibroglandular densities. POS - [id number] Narrative 03/14/2018 9:07 AM EDT 63-year-old female [...] There are scattered fibroglandular densities. POS - [id number] [place] [facility] Patrice Hernandez MD IMG MG EXAMS Final R esult from Last 3 Months or Most Recently Relevant to Health Maintenance Insurance [employer] SU[employer]LEMENT MEDICARE PART A & B [employer] SUPPLEMENT MEDICARE PART A & B [employer] SUPPLEMENT MEDICARE PART A & B [employer] SUPPLEMENT MEDICARE PART A & B [employer] SUPPLEMENT MEDICARE PART A & B [employer] SUPPLEMENT MEDICARE PART A & B [employer] SUPPLEMENT MEDICARE PART A & B [employer]EX SUPPLEMENT MEDICARE PART A & B [employer] SUPPLEMENT MEDICARE PART A & B Care Teams Cycle Analyst Relationship Specialty Start Date End Date Shanell Maddox MD [address] [place] [address] Dr BARRY, CHASITY [address] PCP - General Internal Medicine 01/20/25 Additional Source Comments The information contained in this document represents components of the legal health record. It is not the complete legal health record.[facility]
--- OUTSIDE RECORDS SUMMARY | 2025-09-06 14:14 | XMS_ITS | Encounter Summary ---
Author Organization [facility] Address [address] [place] [address] [place] [phone] Phone Care Team Providers Care Real Estate Assistant Name Role Phone Pedro Hernandez MD Unavailable Berna Carroll MD Unavailable [phone] Pedro Hernandez MD Primary Care Provider Shanell Maddox MD Primary Care Provider [phone] Encounter Details Date Type Department Care Team (Late st Contact Info) Description 01/31/2018 Ancillary Orders Virtual Department [address] [place] [address] Pedro Hernandez MD [address] [place] [address] [place] [address] Breast screening Social History Tobacco Use Types Packs/Day Years Used Date Smoking Tobacco: Never Assessed Comments Unknown Sex and Gender Information Value Date Recorded Sex Assigned at Not on file Legal Sex Female 9:57 PM EDT Gender Identity Not on file Sexual Orientation Not on file documented as of this encounter Plan of Treatment Not on file documented as of this encounter Results * [...] There are scattered fibroglandular densities. POS - [id number] Narrative 03/14/2018 9:07 AM EDT 63-year-old female [...] There are scattered fibroglandular densities. POS - [id number] Pedro Hernandez MD IMG MG EXAMS Final R esult documented in this encounter Visit Diagnoses Diagnosis Breast screening Breast screening, unspecified Breast screening Breast screening, unspecified documented in this encounter Care Teams Real Estate Assistant Relationship Specialty Start Date End Date Pedro Hernandez MD [address] [place] [address] [place] [address] PCP - General Internal Medicine 01/31/18 01/19/25 Shanell Maddox MD [address] [place] [address] [place] [address] PCP - General Internal Medicine 01/20/25 Pedro Hernandez MD [address] [place] [address] [facility] [place] [address] Historical LMR Provider 07/06/17 2 Berna Carroll MD [address] [place] [address] Historical LMR Provider 07/06/17 2 documented as of this encounter Additional Source Comments The information contained in this document represents components of the legal health record. It is not the complete legal health record.[facility]
--- OUTSIDE RECORDS SUMMARY | 2025-09-06 14:15 | XMS_ITS | Patient Health Record ---
Author Organization [facility] Address [address] [place] [id number] Care Team Providers Care Brake Reliner Name Role Phone David (RETIRED) Pedro MIX Primary Care Provide r Jamie Kern Unavailable [phone] Allergies No Known Allergies Reason For Referral No Information Medications Medication SIG (Take, Route, Frequency, Duration) Notes Start Date End Date Status Lisinopril 2.5 MG Tablet Oral; Duration: 90 Active Fish Oil 500 MG Capsule 1 capsule Orally Twice a day; Duration: 30 day(s) Active Turmeric Active Vitamin C Active Immunizations Vaccine Route Administration Date Status Comme nts Influenza Unknown 05/17/2021 Administered Social History Tobacco Use: Social History Observation Description Date Details (start date - stop date) Never Smoker NA - NA Social History Drugs/Alcohol: Social Info Question Answer Notes Alcohol Screen Did you have a drink containing alcohol in the past year? Yes How often did you have a drink containing alcohol in the past year? 2 to 3 times a week (3 points) How many drinks did you have on a typical day when you were drinking in the past year? 3 or 4 drinks (1 point) How often did you have 6 or more drinks on one occasion in the past year? Never (0 point) Points 4 Interpretation Positive Tobacco Use: Social Info Question Answer Notes Tobacco Use/Smoking Patient is a nonsmoker Additional Details Category Social Info Options Details Miscellaneous: Marital status: single Occupation: [employer] Section Notes: Nonsmoker; occasional alcoho l Problems Problem Type SNOMED Code ICD Code Onset Dates Problem Status W/U Status Risk Notes Problem Information temporarily unavailable Encounter for screening for malignant neoplasm of colon (Z12.11) Active confirmed Problem Information temporarily unavailable Preprocedural examination (Z01.818) Active confirmed Problem Information temporarily unavailable Colon, diverticulosis (K57.30) Active confirmed Plan Of Treatment Future Test Test Name Order Date COLONOSCOPY 09/06/2021 Insurance Providers Payer Name Payer Address Payer Phone Subscriber Number Group Number Insured Name Patient Relationship to Insured Coverage Start Date Coverage End Date MEDICARE OF [place] [address] [facility] [place] [address] [id number] ANNA LORENZO Self - patient is the insured MEDEX ATTN CLAIMS [address] [place] [address] [id number] ANNA LORENZO Self - patient is the insured Medical (General) History Medical History History ICD Code Denies CA,DM,CVA,Lung disease,renal dise ase Hypertension Enviromental allergies Neg screening colonoscopy in 2009 except for a lipoma in the area of the hepatic flexure Surgical History Surgery Date(Month/Year) Knee replacement on the left 2018
== END 2025-09-06 11:11 | disposition home or self-care (01) ==
LOC: HO.HMGAL 11:10
PROVIDERS: PCP Internal Medicine; Visit Provider Registered Nurse Emergency
DX: J30.89 Other allergic rhinitis (principal)
CPT/HCPCS: 95117; 95165